=== PATIENT | female | born 1950 | race Caucasian/White ===

== ENCOUNTER 2021-12-04 18:36 | Inpatient (IN) ==
--- NOTE | 2021-12-04 19:17 | Emergency Department Note ---
Impression & Plan Pyelonephritis, Closed compression fracture of L4 vertebra ED Provider Note CHIEF COMPLAINT: Mid and lower back pain HISTORY OF PRESENT ILLNESS: This 71-year-old female patient presents to the emergency department by private vehicle complaining of pain in the low back which began about 3 weeks ago. Patient notes a history of back pain in the past, but has not had surgeries to her back. She states usually if she gets a backache it goes away after she rests for short time. She notes that this pain has been gradually getting worse and is now constant. It radiates around the sides to her abdomen. It does not radiate into her legs. The patient notes the pain as a constant dull ache and rates the pain 10/10. The patient has taken Tylenol and used lidocaine patch with minimal relief of the pain. The patient denies any loss of control of their bowel or bladder functions. There has been no leg numbness or weakness, and no change in sensation. No chest pain or shortness of breath. Patient states that she saw her PCP who recommended that she go to physical therapy, she is scheduled to start this next week. She does note that she was recently treated for urinary tract infection about 3 weeks ago prior to her back pain starting. She has had some nausea off and on but has not had vomiting. She does note that she has had increased urinary frequency but denies burning with urination. She denies any fevers/chills/feeling ill and has had a normal appetite. REVIEW OF SYSTEMS: A complete 10 point review of systems was reviewed with the patient with pertinent positives and negatives as per history of present illness. All else were negative. ALLERGIES: Reviewed in chart with the patient PMH: Hypertension, history of cholecystectomy and tubal ligation SOCIAL HISTORY: Lives at home, she denies tobacco use PHYSICAL EXAM: VITALS: Vitals are noted on the triage note and reviewed by myself. Vital signs stable. GENERAL: Pleasant and cooperative, in no acute distress, non-diaphoretic, mildly dehydrated, but otherwise well-developed and well-nourished. SKIN: The skin was without rashes, erythema, edema, or bruising. Capillary refill less than 2 seconds. NECK: Supple without nuchal rigidity. No cervical spine tenderness. No paraspinous muscle tenderness. HEART: Regular rate and rhythm without murmurs gallops or rubs. LUNGS: Clear to auscultation bilaterally without wheezes, rales or rhonchi. ABDOMEN: Positive bowel sounds x 4. Normal tympanic percussion. Tender to palpation throughout the abdomen, most tender in the suprapubic and bilateral flank areas. No rebound tenderness or guarding. Abdomen is soft and nondistended. No masses or organomegaly. Gracia sign negative. Positive CVA tenderness to percussion bilaterally. MUSCULOSKELETAL: No muscle atrophy, erythema, or edema noted of the back. There is diffuse tenderness to palpation throughout the mid and lower back, with some tenderness over the lumbar spinous processes. There is no midline tenderness over the thoracic spine. No obvious muscle spasms noted. The patient is slow to move around with maximum tenderness with sitting up from lying down. Negative straight leg raise test bilaterally NEURO: Patient was alert and oriented to person place and time. Normal sensation to light and sharp touch. Deep tendon reflexes 2+ in the lower extremities. Dorsalis pedis pulse 2+ bilaterally. Strength 5/5 and equal in the bilateral lower extremities. ED COURSE AND MEDICAL DECISION MAKING: CC: Patient presenting with complaint of back pain DIFFERENTIAL DIAGNOSIS: Includes, but not limited to musculoskeletal, disc herniation, fracture, metastatic disease, cord compression, discitis, sciatica, cauda equina, infection, UTI/pyelonephritis, aortic disease, renal colic, gastrointestinal, among others. INTERPRETATION OF LABS: No leukocytosis, anemia, normal platelets, no significant electrolyte abnormalities, elevated BUN with a normal creatinine, normal liver enzymes and lipase. Coagulation factors within normal limits. UA shows 10-30 WBCs with epithelials and no bacteria, urine cultures pending. COVID-19 test negative. MEDICATION RECONCILIATION: I attest that I have personally reviewed the patient's current medication list. INITIAL VITAL SIGNS REVIEW: I reviewed the patient's initial vital signs and interpret them as follows: T: Afebrile; BP: Normotensive; HR: Within normal limits; RR: Within normal limits; Pulse Ox: Within normal limits on room air. MDM SUMMARY: Patient was evaluated at bedside, history and physical exam performed. Patient is alert and oriented, in no acute distress, resting calmly in stretcher. She is afebrile and nontoxic-appearing, but does appear to be mildly dehydrated clinically. The patient has diffuse tenderness to palpation throughout the mid and lower back with bilateral CVA tenderness to percussion, and bilateral flank and abdominal pain with suprapubic tenderness on exam as well. No neurovascular abnormalities on exam, no red flags on exam or history concerning for spinal cord involvement or cauda equina syndrome. Orders were placed for labs, UA, IV fluid bolus for hydration, CT abdomen/pelvis with IV contrast as well as CT of the lumbar spine, IV fentanyl for pain. Patient discussed with Dr. Rodriguez, who agrees with my assessment, plan, and disposition. Labs and imaging reviewed, no significant lab abnormalities, no leukocytosis. Moderate anemia which the patient notes that she has at baseline. BUN is elevated with a normal creatinine. UA noting large WBCs but no bacteria, urine cultures pending. CT imaging demonstrates findings suggestive of cystitis with bilateral pyeloneph ritis, which I suspect is the cause of the patient's ongoing back pain, given her recently treated UTI. There was also note of a mild superior endplate compression fracture of L4. Given the bilateral pyelonephritis with failed outpatient treatment for UTI, I did feel that the patient would benefit from inpatient hospitalization. The patient was treated with 2 g IV Rocephin. I spoke on the phone with Dr. Jacques, [facility] hospitalist, who agreed to evaluate the patient for admission. Patient reassessed multiple times throughout ED stay, she has remained hemodynamically stable, neurovascularly intact, and afebrile. She does note that her pain is improved after receiving fentanyl. The patient was updated on all results and plan for admission, all questions were answered to the best of my ability and the patient was agreeable to this plan. A Covid test was ordered and was negative. The patient was stable at the time of admission. The chart was completed utilizing [employer] Speech voice recognition software. Grammatical errors, random word insertions, pronoun errors, and incomplete se ntences are an occasional consequence of this system due to software limitations, ambient noise, and hardware issues. Any formal questions or concerns about the content, text, or information contained within the body of this dictation should be directly addressed to the nurse practitioner for bella estevez. Past Med/Surg History Social History Smoking Status: Never smoker Feels Safe at Home: Yes Allergies Allergies Allergy/AdvReac Type Severity Reaction Status Date / Time bee venom protein (honey bee) Allergy Severe . Verified 12/04/21 23:31 clobetasol Allergy Allergy Verified 12/04/21 23:32 test said was allergic Home Meds Home Medications Medication Instructions Recorded Confirmed acetaminophen 500 mg tablet 1,000 mg PO Q6H PRN 12/04/21 12/04/21 (Tylenol Extra Strength) doxycycline hyclate 50 mg capsule 50 mg PO DAILY PRN 12/04/21 12/04/21 lisinopril 10 mg tablet 10 mg PO DAILY 12/04/21 12/04/21 lisinopril 5 mg tablet 5 mg PO DAILY 12/04/21 12/04/21 Results & Data (ED) Vital Signs Vital Signs - 24 hr 12/04/21 18:52 12/04/21 20:19 12/04/21 20:37 Temperature 36.9 C Temperature Source Temporal Artery Scan Pulse Rate 69 87 Pulse Rate [Apical] 65 Pulse Rhythm Regular Pulse Rhythm [Apical] Regular Pulse Strength [Apical] Normal Respiratory Rate 18 18 18 Respiratory Effort / Characteristics Non-Labored Spontaneous Non-Labored Spontaneous Respiratory Depth Normal Normal Respiratory Pattern Regular Blood Pressure 110/57 L Blood Pressure [Left Arm] 127/63 Blood Pressure Mean 74 Blood Pressure Mean [Left Arm] 84 Blood Pressure Position [Left Arm] Lying Pulse Oximetry 100 98 97 Oxygen Delivery Method Room Air Room Air Room Air Sepsis Recent Fever Within 48 Hours No Sepsis New/Unexplained Change in Mental Status No Sepsis Action Taken by Nursing No Action Required 12/05/21 00:32 Temperature Temperature Source Pulse Rate Pulse Rate [Apical] 76 Pulse Rhythm Pulse Rhythm [Apical] Pulse Strength [Apical] Respiratory Rate 18 Respiratory Effort / Characteristics Non-Labored Spontaneous Respiratory Depth Normal Respiratory Pattern Blood Pressure Blood Pressure [Left Arm] 117/54 L Blood Pressure Mean Blood Pressure Mean [Left Arm] 75 Blood Pressure Position [Left Arm] Pulse Oximetry 96 Oxygen Delivery Method Room Air Sepsis Recent Fever Within 48 Hours Sepsis New/Unexplained Change in Mental Status Sepsis Action Taken by Nursing Laboratory Data Result diagrams: 12/04/21 20:02 12/04/21 20:02 Lab Results 12/04/21 12/04/21 12/04/21 Range/Units 20:02 20:02 20:02 WBC 5.86 (4.8-10.8) K/uL RBC 2.65 L (4.2-5.4) M/uL Hgb 9.1 L (12.0-16.0) g/dL Hct 27.0 L (37-47) % MCV 101.9 H (80-100) fL MCH 34.3 H (25-34) pg MCHC 33.7 (32-36) g/dL RDW Std Deviation 53.3 H (36.4-46.3) fL RDW Coeff of Sophia 14.2 (11.5-14.5) % Plt Count 198 (130-400) K/uL MPV 9.5 (7.4-10.4) fL Immature Gran % (Auto) 0.2 % Neut % (Auto) 58.9 % Lymph % (Auto) 32.9 % [place] % (Auto) 5.6 % Eos % (Auto) 1.9 % Baso % (Auto) 0.5 % Neut # (Auto) 3.45 (1.4-6.5) K/uL Lymph # (Auto) 1.93 (1.2-3.4) K/uL [place] # (Auto) 0.33 (0.11-0.59) K/uL Eos # (Auto) 0.11 (0-0.5) K/uL Baso # (Auto) 0.03 (0-0.2) K/uL Immature Gran # (Auto) 0.01 (0.00-0.02) K/uL Poikilocytosis Present PT 10.3 (9.0-12.0) Seconds INR 1.0 (0.9-1.1) Sodium 137 (136-145) mmol/L Potassium 4.1 (3.5-5.1) mmol/L Chloride 106 (98-107) mmol/L Carbon Dioxide 23 (21-32) mmol/L Anion Gap 8 (3-11) BUN 32 H (6-23) mg/dl Creatinine 1.08 (0.6-1.2) mg/dl Est Cr Clr Drug Dosing 50.1 ml/min Est GFR ( Amer) 59.8 ml/min Est GFR (Non-Af Amer) 51.6 ml/min BUN/Creatinine Ratio 29.6 H (10-20) Glucose 120 H (70-99(Fasting)) mg/dl Calcium 9.6 (8.5-10.1) mg/dl Total Bilirubin 0.2 (0.2-1.0) mg/dl AST 18 (13-39) U/L ALT 16 (7-52) U/L Alkaline Phosphatase 99 (34-104) U/L Total Protein 6.2 (6.0-8.3) gm/dl Albumin 4.1 (3.4-5.0) gm/dl Globulin 2.1 L (2.5-4.0) gm/dl Albumin/Globulin Ratio 2.0 (0.9-2) Lipase 31 (11-82) U/L Urine Color Urine Appearance (Clear) Urine pH (4.5-7.5) Ur Specific [place] (1.000-1.030) Urine Protein (Negative) Urine Glucose (UA) (Negative) Urine Ketones (Negative) Urine Blood (Negative) Urine Nitrite (Negative) Urine Bilirubin (Negative) Urine Urobilinogen (Negative) Ur Leukocyte Esterase (Negative) Urine WBC (Auto) (0-5) /hpf Urine RBC (Auto) (0-4) /hpf U Hyaline Cast (Auto) (0-5) /lpf U Epithel Cells (Auto) (0-5) /lpf Urine Bacteria (Auto) (Negative) SARS-CoV-2, RNA, NAAT (NEGATIVE) 12/04/21 12/04/21 Range/Units 21:10 23:15 WBC (4.8-10.8) K/uL RBC (4.2-5.4) M/uL Hgb (12.0-16.0) g/dL Hct (37-47) % MCV (80-100) fL MCH (25-34) pg MCHC (32-36) g/dL RDW Std Deviation (36.4-46.3) fL RDW Coeff of Sophia (11.5-14.5) % Plt Count (130-400) K/uL MPV (7.4-10.4) fL Immature Gran % (Auto) % Neut % (Auto) % Lymph % (Auto) % [place] % (Auto) % Eos % (Auto) % Baso % (Auto) % Neut # (Auto) (1.4-6.5) K/uL Lymph # (Auto) (1.2-3.4) K/uL [place] # (Auto) (0.11-0.59) K/uL Eos # (Auto) (0-0.5) K/uL Baso # (Auto) (0-0.2) K/uL Immature Gran # (Auto) (0.00-0.02) K/uL Poikilocytosis PT (9.0-12.0) Seconds INR (0.9-1.1) Sodium (136-145) mmol/L Potassium (3.5-5.1) mmol/L Chloride (98-107) mmol/L Carbon Dioxide (21-32) mmol/L Anion Gap (3-11) BUN (6-23) mg/dl Creatinine (0.6-1.2) mg/dl Est Cr Clr Drug Dosing ml/min Est GFR ( Amer) ml/min Est GFR (Non-Af Amer) ml/min BUN/Creatinine Ratio (10-20) Glucose (70-99(Fasting)) mg/dl Calcium (8.5-10.1) mg/dl Total Bilirubin (0.2-1.0) mg/dl AST (13-39) U/L ALT (7-52) U/L Alkaline Phosphatase (34-104) U/L Total Protein (6.0-8.3) gm/dl Albumin (3.4-5.0) gm/dl Globulin (2.5-4.0) gm/dl Albumin/Globulin Ratio (0.9-2) Lipase (11-82) U/L Urine Color Yellow Urine Appearance Clear (Clear) Urine pH 5.0 (4.5-7.5) Ur Specific [place] 1.022 (1.000-1.030) Urine Protein 1+ H (Negative) Urine Glucose (UA) Negative (Negative) Urine Ketones Negative (Negative) Urine Blood Negative (Negative) Urine Nitrite Negative (Negative) Urine Bilirubin Negative (Negative) Urine Urobilinogen Negative (Negative) Ur Leukocyte Esterase Trace H (Negative) Urine WBC (Auto) 10-30 H (0-5) /hpf Urine RBC (Auto) 0-4 (0-4) /hpf U Hyaline Cast (Auto) 0 (0-5) /lpf U Epithel Cells (Auto) >30 H (0-5) /lpf Urine Bacteria (Auto) Negative (Negative) SARS-CoV-2, RNA, NAAT NEGATIVE (NEGATIVE) Administered Medications Discontinued Medications Fentanyl Citrate (Fentanyl Citrate 100 Mcg/2 Ml Vial) 50 mcg IV NOW STA Stop: 12/04/21 19:44 Last Admin: 12/04/21 20:08 Dose: 50 mcg Documented by: [id number] Sodium Chloride (Nss) 500 mls @ 999 mls/hr IV .Q31M STA Stop: 12/04/21 20:13 Last Infusion: 12/04/21 20:37 Dose: 0 mls/hr Documented by: [id number] Admin: 12/04/21 20:08 Dose: 999 mls/hr Documented by: [id number] Ceftriaxone Sodium (Rocephin) 2,000 mg in 70 mls @ 140 mls/hr IV NOW STA Stop: 12/04/21 23:28 Last Infusion: 12/05/21 00:02 Dose: 0 mls/hr Documented by: [id number] Admin: 12/04/21 23:32 Dose: 140 mls/hr Documented by: [id number] Ioversol (Optiray 320 100ml) 95 ml IV ONCE ONE Stop: 12/04/21 21:07 Last Admin: 12/04/21 21:12 Dose: 95 ml Documented by: [id number] Imaging Data Radiologist's Impression: Abdomen/Pelvis CT 12/04/21 19:43 CT SCAN OF THE ABDOMEN AND PELVIS WITH IV CONTRAST; CT SCAN OF THE LUMBAR SPINE WITH IV CONTRAST CLINICAL HISTORY: Generalized abdominal pain. Low back pain. Radiculopathy. COMPARISON STUDY: Abdominal ultrasound dated 05/03/2009. TECHNIQUE: Following the IV administration of 95 cc of Optiray 320, CT scan of the abdomen and pelvis is performed from the lung bases to the proximal femora. Additionally, CT scan of the lumbar spine is performed from the lower thoracic spine to the sacrum. Images for both examinations are reviewed in the axial, sagittal, and coronal planes. IV contrast was administered without complication. A dose lowering technique was utilized adhering to the principles of ALARA. CT DOSE: 762.62 mGy.cm FINDINGS: Lung bases: The heart is normal in size and without pericardial effusion. There are coronary artery calcifications. Patchy nodular airspace consolidation is seen at both lung bases. No pleural effusion is identified. Bilateral breast implants are partially imaged. Liver: The contrast-enhanced liver is normal in size, contour, and attenuation. There is mild intrahepatic biliary ductal dilatation. The hepatic veins and portal veins are patent. Gallbladder: Surgically absent noting clips in the gallbladder fossa. Spleen: Normal in size and attenuation. Pancreas: Unremarkable. Adrenal glands: Unremarkable. Kidneys: The contrast enhanced kidneys are normal in size and without hydronephrosis. Both kidneys demonstrate heterogeneous enhancement. 2 left renal cysts measure up to 3.4 cm. Abdominal vasculature: The abdominal aorta is normal in course and caliber. Bowel: There is mild to moderate colonic fecal retention. No bowel obstruction is identified. The appendix is diminutive and grossly unremarkable. Peritoneum: There is no intraperitoneal free air or abdominal ascites. There is a small fat-containing umbilical hernia. Lymphadenopathy: None. Pelvic viscera: The bladder wall appears mildly thickened and there is pericystic infiltration. The uterus and adnexa are normal as visualized. Skeletal structures: The skeletal structures are osteopenic. See below for dedic ated discussion of the lumbar spine. The bony pelvis and proximal femora appear intact. Sclerotic change is noted in the pubic symphysis. No lytic or blastic lesions are seen. LUMBAR SPINE: There is a mild acute superior endplate compression fracture of L4. There are minimally retropulsed fragments. Vertebral body height is otherwise maintained throughout the lumbar spine. Alignment is preserved. Small anterior and lateral marginal osteophytes are seen throughout. The transverse and spinous processes are intact. Facet arthropathy is noted in the lower lumbar region. There is no evidence of spondylolysis. There is moderate disc space narrowing at L4-L5. Mild disc space narrowing is seen at the remaining lumbar levels. There is no CT evidence of large disc herniation or high-grade central canal stenosis. The paraspinous soft tissues are within normal limits. IMPRESSION: 1. Findings suggest cystitis with ascending urinary tract infection/bilateral pyelonephritis. Correlate with clinical findings and urinalysis. 2. Patchy nodular airspace consolidation is seen at both lung bases. Correlate clinically for evidence of pneumonia. Given the nodular configuration, a follow- up chest CT is recommended in 3 months time to document resolution. 3. There is a mild acute superior endplate compression fracture of L4. 4. Additional findings as above. ACT 112: Positive. There are findings on this exam that require communication between the performing entity and the patient following Patient Test Result Information Act ([place] Act 112) guidelines. Electronically signed by: Brenton Diaz M.D. 12/04/2021 10:[address] 12/04/21 19:43 CT SCAN OF THE ABDOMEN AND PELVIS WITH IV CONTRAST; CT SCAN OF THE LUMBAR SPINE WITH IV CONTRAST CLINICAL HISTORY: Generalized abdominal pain. Low back pain. Radiculopathy. COMPARISON STUDY: Abdominal ultrasound dated 05/03/2009. TECHNIQUE: Following the IV administration of 95 cc of Optiray 320, CT scan of the abdomen and pelvis is performed from the lung bases to the proximal femora. Additionally, CT scan of the lumbar spine is performed from the lower thoracic spine to the sacrum. Images for both examinations are reviewed in the axial, sagittal, and coronal planes. IV contrast was administered without complication. A dose lowering technique was utilized adhering to the principles of ALARA. CT DOSE: 762.62 mGy.cm FINDINGS: Lung bases: The heart is normal in size and without pericardial effusion. There are coronary artery calcifications. Patchy nodular airspace consolidation is seen at both lung bases. No pleural effusion is identified. Bilateral breast implants are partially imaged. Liver: The contrast-enhanced liver is normal in size, contour, and attenuation. There is mild intrahepatic biliary ductal dilatation. The hepatic veins and portal veins are patent. Gallbladder: Surgically absent noting clips in the gallbladder fossa. Spleen: Normal in size and attenuation. Pancreas: Unremarkable. Adrenal glands: Unremarkable. Kidneys: The contrast enhanced kidneys are normal in size and without hydronephrosis. Both kidneys demonstrate heterogeneous enhancement. 2 left renal cysts measure up to 3.4 cm. Abdominal vasculature: The abdominal aorta is normal in course and caliber. Bowel: There is mild to moderate colonic fecal retention. No bowel obstruction is identified. The appendix is diminutive and grossly unremarkable. Peritoneum: There is no intraperitoneal free air or abdominal ascites. There is a small fat-containing umbilical hernia. Lymphadenopathy: None. Pelvic viscera: The bladder wall appears mildly thickened and there is p ericystic infiltration. The uterus and adnexa are normal as visualized. Skeletal structures: The skeletal structures are osteopenic. See below for dedicated discussion of the lumbar spine. The bony pelvis and proximal femora appear intact. Sclerotic change is noted in the pubic symphysis. No lytic or blastic lesions are seen. LUMBAR SPINE: There is a mild acute superior endplate compression fracture of L4. There are minimally retropulsed fragments. Vertebral body height is otherwise maintained throughout the lumbar spine. Alignment is preserved. Small anterior and lateral marginal osteophytes are seen throughout. The transverse and spinous processes are intact. Facet arthropathy is noted in the lower lumbar region. There is no evidence of spondylolysis. There is moderate disc space narrowing at L4-L5. Mild disc space narrowing is seen at the remaining lumbar levels. There is no CT evidence of large disc herniation or high-grade central canal stenosis. The paraspinous soft tissues are within normal limits. IMPRESSION: 1. Findings suggest cystitis with ascending urinary tract infection/bilateral pyelonephritis. Correlate with clinical findings and urinalysis. 2. Patchy nodular airspace consolidation is seen at both lung bases. Correlate c linically for evidence of pneumonia. Given the nodular configuration, a follow- up chest CT is recommended in 3 months time to document resolution. 3. There is a mild acute superior endplate compression fracture of L4. 4. Additional findings as above. ACT 112: Positive. There are findings on this exam that require communication between the performing entity and the patient following Patient Test Result Information Act ([place] Act 112) guidelines. Electronically signed by: Brenton Diaz M.D. 12/04/2021 10:37 PM Discharge Plan Visit Data Chief Complaint: Back Injury/Pain Stated Complaint: LOWER BACK PAIN ED Provider: Tony Rodriguez ED Midlevel Provider: Brooklyn Tolentino Discharge Problem: Pyelonephritis, Closed compression fracture of L4 vertebra Patient Disposition: Admitted As Inpatient Forms Stand Alone Forms: [employer] [facility] [employer] Prescriptions Prescriptions: No Action doxycycline hyclate 50 mg capsule 50 mg PO DAILY PRN (Reason: ROSECEA) RF: 0 acetaminophen [Tylenol Extra Strength] 500 mg Tablet 1,000 mg PO Q6H PRN (Reason: Pain) RF: 0 lisinopril 10 mg tablet 10 mg PO DAILY RF: 0 lisinopril 5 mg tablet 5 mg PO DAILY RF: 0 Referrals Referrals: Sherwin Obrien MD [Primary Care Provider] - Discharge Problem: Closed compression fracture of L4 vertebra Qualifiers: Encounter type: initial encounter Qualified Code(s): S32.040A - Wedge compression fracture of fourth lumbar vertebra, initial encounter for closed fracture
[2021-12-04] MEDS ORDERED: SODIUM CHLORIDE 0.9% 500 ML IV STA (19:43)
[2021-12-04] MEDS ORDERED: fentaNYL citrate 100 MCG/2 ML VIAL IV STA (19:43)
[2021-12-04 20:13] LABS: Hemoglobin 9.1 g/dL (12.0-16.0); Mean Corpuscular Hemoglobin 34.3 pg (25-34); Mean Corpuscular Hgb Conc 33.7 g/dL (32-36); Mean Corpuscular Volume 101.9 fL (80-100); Mean Platelet Volume 9.5 fL (7.4-10.4); Platelet Count 198 K/uL (130-400); RDW Coefficient of Variation 14.2 % (11.5-14.5); RDW Standard Deviation 53.3 fL (36.4-46.3); Red Blood Count 2.65 M/uL (4.2-5.4); White Blood Count 5.86 K/uL (4.8-10.8)
[2021-12-04 20:28] LABS: Prothrombin Time 10.3 Seconds (9.0-12.0)
[2021-12-04 20:42] LABS: Albumin Level 4.1 gm/dl (3.4-5.0); BUN Creatinine Ratio 29.6 (10-20); Bilirubin,Total 0.2 mg/dl (0.2-1.0); Calcium 9.6 mg/dl (8.5-10.1); Creatinine Clr Calc Pharmacy 50.1 ml/min; Est GFR (African American) 59.8 ml/min; Est GFR (Non-African American) 51.6 ml/min; Globulin 2.1 gm/dl (2.5-4.0); Potassium 4.1 mmol/L (3.5-5.1); Total Protein 6.2 gm/dl (6.0-8.3)
[2021-12-04 20:52] LABS: Basophils # (auto) 0.03 K/uL (0-0.2); Basophils % (auto) 0.5 %; Eosinophils # (auto) 0.11 K/uL (0-0.5); Eosinophils % (auto) 1.9 %; Immature Granulocytes # (auto) 0.01 K/uL (0.00-0.02); Immature Granulocytes % (auto) 0.2 %; Lymphocytes # (auto) 1.93 K/uL (1.2-3.4); Lymphocytes % (auto) 32.9 %; Monocytes # (auto) 0.33 K/uL (0.11-0.59); Monocytes % (auto) 5.6 %; Neutrophils # (auto) 3.45 K/uL (1.4-6.5); Neutrophils % (auto) 58.9 %; Poikilocytosis Present
[2021-12-04] MEDS ORDERED: OPTIRAY 320 100ml IV ONE (21:06)
[2021-12-04 21:49] LABS: Appearance Urine Clear (Clear); Bacteria Urine Automated Negative (Negative); Bilirubin Urine Negative (Negative); Blood Urine Negative (Negative); Color Urine Yellow; Epithelial Cell Urine Auto >30 /lpf (0-5); Glucose Urine UA Negative (Negative); Ketones Urine Negative (Negative); Leukocyte Esterase Urine Trace (Negative); Nitrite Urine Negative (Negative); Protein Urine 1+ (Negative); RBC Urine Automated 0-4 /hpf (0-4); Specific Gravity Urine 1.022 (1.000-1.030); Urobilinogen Urine Negative (Negative)
[2021-12-04 22:14] LABS: Cast Urine Automated 0 /lpf (0-5)
--- NOTE | 2021-12-04 22:40 | CT Scan Report ---
CT SCAN OF THE ABDOMEN AND PELVIS WITH IV CONTRAST; CT SCAN OF THE LUMBAR SPINE WITH IV CONTRAST CLINICAL HISTORY: Generalized abdominal pain. Low back pain. Radiculopathy. COMPARISON STUDY: Abdominal ultrasound dated 05/03/2009. TECHNIQUE: Following the IV administration of 95 cc of Optiray 320, CT scan of the abdomen and pelvi s is performed from the lung bases to the proximal femora. Additionally, CT scan of the lumbar spine is performed from the lower thoracic spine to the sacrum. Images for both examinations are reviewed i n the axial, sagittal, and coronal planes. IV contrast was administered without complication. A dose lowering technique was utilized adhering to the principles of ALARA. CT DOSE: 762.62 mGy.cm FINDINGS: Lung bases: The heart is normal in size and without pericardial effusion. There are coronary artery c alcifications. Patchy nodular airspace consolidation is seen at both lung bases. No pleural effusion is identified. Bilateral breast implants are partially imaged. Liver: The contrast-enhanced liver is normal in size, contour, and attenuation. There is mild intrahe patic biliary ductal dilatation. The hepatic veins and portal veins are patent. Gallbladder: Surgically absent noting clips in the gallbladder fossa. Spleen: Normal in size and attenuation. Pancreas: Unremarkable. Adrenal glands: Unremarkable. Kidneys: The contrast enhanced kidneys are normal in size and without hydronephrosis. Both kidneys de monstrate heterogeneous enhancement. 2 left renal cysts measure up to 3.4 cm. Abdominal vasculature: The abdominal aorta is normal in course and caliber. Bowel: There is mild to moderate colonic fecal retention. No bowel obstruction is identified. The mignon endix is diminutive and grossly unremarkable. Peritoneum: There is no intraperitoneal free air or abdominal ascites. There is a small fat-containin g umbilical hernia. Lymphadenopathy: None. Pelvic viscera: The bladder wall appears mildly thickened and there is pericystic infiltration. The u terus and adnexa are normal as visualized. Skeletal structures: The skeletal structures are osteopenic. See below for dedicated discussion of th e lumbar spine. The bony pelvis and proximal femora appear intact. Sclerotic change is noted in the p ubic symphysis. No lytic or blastic lesions are seen. LUMBAR SPINE: There is a mild acute superior endplate compression fracture of L4. There are minimally retropulsed fragments. Vertebral body height is otherwise maintained throughout the lumbar spine. Al ignment is preserved. Small anterior and lateral marginal osteophytes are seen throughout. The transv erse and spinous processes are intact. Facet arthropathy is noted in the lower lumbar region. There i s no evidence of spondylolysis. There is moderate disc space narrowing at L4-L5. Mild disc space narr owing is seen at the remaining lumbar levels. There is no CT evidence of large disc herniation or hig h-grade central canal stenosis. The paraspinous soft tissues are within normal limits. IMPRESSION: 1. Findings suggest cystitis with ascending urinary tract infection/bilateral pyelonephritis. Correla te with clinical findings and urinalysis. 2. Patchy nodular airspace consolidation is seen at both lung bases. Correlate clinically for evidenc e of pneumonia. Given the nodular configuration, a follow-up chest CT is recommended in 3 months time to document resolution. 3. There is a mild acute superior endplate compression fracture of L4. 4. Additional findings as above. ACT 112: Positive. There are findings on this exam that require communication between the performing entity and the patient following Patient Test Result Information Act ([place] Act 112) guidelines. Electronically signed by: Brenton Diaz M.D. 12/04/2021 10:37 PM
[2021-12-04] MEDS ORDERED: cefTRIAXone SODIUM 2,000 MG/70 ML BAG IV STA (22:59)
--- NOTE | 2021-12-04 23:36 | Emergency Department Note ---
ED Visit Note This Patient was discussed with the nurse practitioner, LATONYA Nuñez The pertinent historical and physical exam findings were confirmed. I agree with the studies ordered and with the interpretations of these studies. I agree with the disposition and care plan. .
[2021-12-05] MEDS ORDERED: ACETAMINOPHEN 325 MG TAB PO PRN (01:51)
[2021-12-05] MEDS ORDERED: ONDANSETRON INJ 2 MG/ML 2 ML VIAL IV PRN (01:51)
[2021-12-05] MEDS ORDERED: POLYETHYLENE (MIRALAX) 17 GM PACK PO PRN (01:51)
[2021-12-05] MEDS ORDERED: ACETAMINOPHEN 500 MG TAB PO PRN (01:51)
[2021-12-05] MEDS ORDERED: MoRPHine SULFATE 2 MG/ML CARP IV PRN (01:51)
[2021-12-05] MEDS: SODIUM CHLORIDE 0.9% 1000ML 1,000 ML IV SCH ×3 (02:46→13:49)
[2021-12-05] MEDS: ceFAZolin 1000MG 1,000 MG/7.5 ML SYR IV SCH ×3 (03:03→17:34)
[2021-12-05 05:34] LABS: Basophils # (auto) 0.03 K/uL (0-0.2); Basophils % (auto) 0.5 %; Eosinophils # (auto) 0.09 K/uL (0-0.5); Eosinophils % (auto) 1.4 %; Hematocrit (blood only) 27.5 % (37-47); Hemoglobin 9.2 g/dL (12.0-16.0); Immature Granulocytes # (auto) 0.02 K/uL (0.00-0.02); Immature Granulocytes % (auto) 0.3 %; Lymphocytes # (auto) 1.76 K/uL (1.2-3.4); Lymphocytes % (auto) 28.1 %; Mean Corpuscular Hemoglobin 34.3 pg (25-34); Mean Corpuscular Hgb Conc 33.5 g/dL (32-36); Mean Corpuscular Volume 102.6 fL (80-100); Mean Platelet Volume 9.7 fL (7.4-10.4); Monocytes # (auto) 0.43 K/uL (0.11-0.59); Monocytes % (auto) 6.9 %; Neutrophils # (auto) 3.94 K/uL (1.4-6.5); Neutrophils % (auto) 62.8 %; Platelet Count 200 K/uL (130-400); RDW Coefficient of Variation 14.4 % (11.5-14.5); Red Blood Count 2.68 M/uL (4.2-5.4); White Blood Count 6.27 K/uL (4.8-10.8)
[2021-12-05 05:51] LABS: BUN Creatinine Ratio 28.6 (10-20); Calcium 9.3 mg/dl (8.5-10.1); Creatinine Clr Calc Pharmacy 54.6 ml/min; Est GFR (African American) 67.3 ml/min; Magnesium 1.9 mg/dl (1.7-2.4); Potassium 4.2 mmol/L (3.5-5.1)
--- NOTE | 2021-12-05 06:17 | History and Physical Report ---
DATE OF SERVICE: 12/05/2021. CHIEF COMPLAINT: Back pain. HISTORY OF PRESENT ILLNESS: A 71-year-old female with past medical history significant for type 2 diabetes, hypertension, obesity, GERD, irritable bowel syndrome, lichen sclerosis, rosacea, restless legs syndrome, osteoarthritis, recent history of left breast cancer stage 0 status post bilateral mastectomy. Comes in with back pain. The patient's back pain is going on for the last 3 weeks. In October, she was treated for UTI with Bactrim for 1 week. But back pain is getting worse and she is not able to even ambulate. That is the reason she came here. Here, imaging studies, CAT scan of lumbar spine and CT scan of the abd/pelvis was done, which was showing pyelonephritis and also mild acute superior endplate compression fracture of L4. The patient was started on antibiotics. Currently, resting comfortably, hemodynamically stable. Denies any headache or dizziness. Currently, no blurred visions, no sore throat, no cough. Currently, no nausea, no chest pain, no abdominal pain. Normal bowel and bladder movements. Hemodynamically stable. ALLERGIES: BEE STING AND CLOBETASOL. PAST MEDICAL HISTORY: As mentioned above. PAST SURGICAL HISTORY: Breast reconstruction surgery, left deep axillary lymph node biopsy, colonoscopy, laparoscopic cholecystectomy, simple mastectomy. MEDICATIONS: The patient is on doxycycline 100 mg p.o. daily p.r.n., lisinopril 15 mg p.o. daily, Tylenol Extra Strength 1000 mg p.o. q. 6 hours p.r.n. FAMILY HISTORY: Significant for maternal cousin has breast cancer, daughter has breast cancer, brother has cancer, maternal grandfather had colon cancer, brother has stroke, another brother has schizophrenia, mother has heart disorder. SOCIAL HISTORY: No smoking. Alcohol, rarely. No drug use. REVIEW OF SYSTEMS: As per HPI. Rest of the review of systems is negative. PHYSICAL EXAMINATION: GENERAL: The patient is obese, not in acute distress. VITAL SIGNS: Temperature 36.5, pulse 83, respiratory rate 16, blood pressure 123/65, oxygen 98% on room air. HEENT: Pupils equal, round, and reactive to light. Oral mucosa moist. NECK: No JVD, no neck masses. CARDIOVASCULAR: S1 and S2 heard. Regular rate and rhythm. No murmur, no gallop. RESPIRATORY SYSTEM: Normal AP diameter. No accessory muscle use. No wheezing, no crackles. ABDOMEN: Soft, bowel sounds present, nontender, no distention. CENTRAL NERVOUS SYSTEM: Cranial nerves II through XII grossly intact, nonfocal. MUSCULOSKELETAL: Lumbar spinal tenderness present. Bilateral straight leg test positive. EXTREMITIES: No edema, no erythema. LABORATORY DATA: WBC 5.8, hemoglobin 9.1, hematocrit 27, platelets 198, PT 10.3, INR 1. Sodium 137, potassium 4.1, chloride 106, bicarbonate 23, BUN 32, creatinine 1.08, serum glucose 120, calcium 9.6, total bilirubin 0.2, AST 18, ALT 16, alkaline phosphatase 99, lipase 31. Urinalysis, trace leukocyte esterase. SARS-CoV-2 RNA, rapid test negative. IMAGING DATA: CT of abdomen and pelvis shows findings suggestive of cystitis with ascending urinary tract infection, bilateral pyelonephritis, patchy nodular airspace consolidations seen in both lung bases, mild acute superior endplate compression fracture of L4. Lumbar spine CT, mild acute compression fracture of L4. Chest CT results are pending. ASSESSMENT AND PLAN: This is a 71-year-old female who presents with severe back pain and ambulatory dysfunction and found to have pyelonephritis and also L4 compression fracture. 1. Bilateral pyelonephritis: Started on iv ancef. Urine grew MSSA in October of this year. Will follow the cultures. Follow the response. 2. Ambulatory dysfunction and also L4 compression fracture: Will consult orthopedics. Pain control. PT/OT. 3. History of hypertension: Continue lisinopril. 4. History of recent diagnosis of breast cancer, stage 0, left side: Status post bilateral mastectomy. Follow up. 5. Anemia: Seems to be chronic. Follow stool for Hemoccult. Needs follow up with family doctor. 6. Deep venous thrombosis prophylaxis: Lovenox. DISPOSITION: Closely monitor in the medical floor. PT, OT prior to discharge. Social service to help with discharge planning. Job ID: [id number] [facility]
[2021-12-05 07:48] LABS: Estimated Average Glucose 126 mg/dl
--- NOTE | 2021-12-05 08:51 | Consultation ---
Date of Consultation December 05, 2021 Assessment & Plan (1) Closed compression fracture of L4 vertebra: Lumbar CT shows an acute L4 superior endplate compression fracture. Pain seems to be quite controlled. Suspect most of her pain is coming from her pyelonephritis. Nonetheless I would like to pursue more detailed imaging in light of her breast cancer diagnosis since there was no specific fall/trauma. I would like an MRI of the lumbar spine without contrast. In light of her controlled pain, I would recommend conservative treatment. I will order an LSO brace. This is to be worn with ambulation and activity. No lifting greater than 5 pounds. Would not recommend aggressive kyphoplasty/surgical intervention in light of her acute pyelonephritis and relatively decent pain control. Please note Dr. Barakat is out of town. He will review imaging once he returns. History of Present Illness Reason for Consultation: L4 compression fracture Attending Physician: Rafael Bemran MD History of Present Illness Is a pleasant 71-year-old female that we are asked to see in consultation regarding L4 compression fracture. She states she has had lower back pain for about 3-1/2 weeks. No specific accident, trauma, fall. She ambulates independently at home. She is taken Tylenol for pain control at home. Denies any fevers or chills at home. 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 Sitting is palliative for her. No radicular complaints. She is also been admitted with a diagnosis of pyelonephritis. Pain is located is a band across the lumbar spine. She is anxious to to return home and back to work. Allergies Allergy/AdvReac Type Severity Reaction Status Date / Time bee venom protein (honey bee) Allergy Severe . Verified 12/04/21 23:31 clobetasol Allergy Allergy Verified 12/04/21 23:32 test said was allergic Home Medications Medication Instructions Recorded Confirmed Type acetaminophen 500 mg tablet 1,000 mg PO Q6H PRN 12/04/21 12/04/21 History (Tylenol Extra Strength) doxycycline hyclate 50 mg capsule 50 mg PO DAILY PRN 12/04/21 12/04/21 History lisinopril 10 mg tablet 10 mg PO DAILY 12/04/21 12/04/21 History lisinopril 5 mg tablet 5 mg PO DAILY 12/04/21 12/04/21 History Patient History Social History Smoking Status: Never smoker Hx Alcohol Use: Yes Alcohol type: wine Hx Substance Use: No Preferred Language: Telugu Communication Ability: Effective Household Manager Required: No Beliefs That Will Affect Care: None Current Living Situation: Alone Other Information That Helps Us Care for You: No Feels Safe at Home: Yes Safety Concerns: Feels Safe At This Time Assistive Devices: Glasses and Hearing Aid - Bilateral Review of Systems Review of Systems: All systems reviewed & are unremarkable except as noted in HPI & below Physical Exam Physical Exam: She is lying in bed but is able to move to a sitting position with relative ease No acute distress No ecchymosis or lacerations along the thoracolumbar spine He is tender over both sacroiliac notches but nontender to palpation to the midline lumbar spine Modest flank tenderness bilaterally Strength is intact bilateral lower extremities calves are soft nontender bilaterally as well Results & Data ([facility]) Vital Signs (Past 12 Hours) Vital Signs Temp Pulse Pulse Pulse Resp BP BP 12/05/21 07:57 36.5 C 63 16 104/64 12/05/21 01:52 36.5 C 83 16 123/65 12/05/21 01:26 75 18 111/55 L 12/05/21 00:32 76 18 117/54 L Pulse Ox 12/05/21 07:57 99 12/05/21 01:52 98 12/05/21 01:26 97 12/05/21 00:32 96 Diagnostic Findings [facility] [place] [phone] CT Scan Report Patient:THERESE PADRON Admit Date:12/04/21 MR#:[id number] Address1:[address] [place] [address] Acct ID:[id number] Address2:[address] Date:1950 [facility] Zip:[place] [address] Age:71 Location:ED Sex:F Room/Bed: Att Phy: Diagnosis:LOWER BACK PAIN Maura Phy:Sherwin Obrien MD Service Date:12/04/21 Fam Phy: Interpreting Phy:Brenton Diaz MDAdmit Phy: Ordering Phy:Brooklyn Tolentino CRNP cc: ~ CT SCAN OF THE ABDOMEN AND PELVIS WITH IV CONTRAST; CT SCAN OF THE LUMBAR SPINE WITH IV CONTRAST CLINICAL HISTORY: Generalized abdominal pain. Low back pain. Radiculopathy. COMPARISON STUDY: Abdominal ultrasound dated 05/03/2009. TECHNIQUE: Following the IV administration of 95 cc of Optiray 320, CT scan of the abdomen and pelvis is performed from the lung bases to the proximal femora. Additionally, CT scan of the lumbar spine is performed from the lower thoracic spine to the sacrum. Images for both examinations are reviewed in the axial, sagittal, and coronal planes. IV contrast was administered without complication. A dose lowering technique was utilized adhering to the principles of ALARA. CT DOSE: 762.62 mGy.cm FINDINGS: Lung bases: The heart is normal in size and without pericardial effusion. There are coronary artery calcifications. Patchy nodular airspace consolidation is seen at both lung bases. No pleural effusion is identified. Bilateral breast implants are partially imaged. Liver: The contrast-enhanced liver is normal in size, contour, and attenuation. There is mild intrahepatic biliary ductal dilatation. The hepatic veins and portal veins are patent. Gallbladder: Surgically absent noting clips in the gallbladder fossa. Spleen: Normal in size and attenuation. Pancreas: Unremarkable. Adrenal glands: Unremarkable. Kidneys: The contrast enhanced kidneys are normal in size and without hydronephrosis. Both kidneys demonstrate heterogeneous enhancement. 2 left renal cysts measure up to 3.4 cm. Abdominal vasculature: The abdominal aorta is normal in course and caliber. Bowel: There is mild to moderate colonic fecal retention. No bowel obstruction is identified. The appendix is diminutive and grossly unremarkable. Peritoneum: There is no intraperitoneal free air or abdominal ascites. There is a small fat-containing umbilical hernia. Lymphadenopathy: None. Pelvic viscera: The bladder wall appears mildly thickened and there is pericystic infiltration. The uterus and adnexa are normal as visualized. Skeletal structures: The skeletal structures are osteopenic. See below for dedicated discussion of the lumbar spine. The bony pelvis and proximal femora appear intact. Sclerotic change is noted in the pubic symphysis. No lytic or blastic lesions are seen. LUMBAR SPINE: There is a mild acute superior endplate compression fracture of L4. There are minimally retropulsed fragments. Vertebral body height is otherwis e maintained throughout the lumbar spine. Alignment is preserved. Small anterior and lateral marginal osteophytes are seen throughout. The transverse and spinous processes are intact. Facet arthropathy is noted in the lower lumbar region. There is no evidence of spondylolysis. There is moderate disc space narrowing at L4-L5. Mild disc space narrowing is seen at the remaining lumbar levels. There i s no CT evidence of large disc herniation or high-grade central canal stenosis. The paraspinous soft tissues are within normal limits. IMPRESSION: 1. Findings suggest cystitis with ascending urinary tract infection/bilateral pyelonephritis. Correlate with clinical findings and urinalysis. 2. Patchy nodular airspace consolidation is seen at both lung bases. Correlate clinically for evidence of pneumonia. Given the nodular configuration, a follow- up chest CT is recommended in 3 months time to document resolution. 3. There is a mild acute superior endplate compression fracture of L4. 4. Additional findings as above. ACT 112: Positive. There are findings on this exam that require communication between the performing entity and the patient following Patient Test Result Information Act ([place] Act 112) guidelines. Electronically signed by: Brenton Diaz M.D. 12/04/2021 10:37 PM Dictated:12/04/212226 Transcribed: 12/04/212226 (1) Closed compression fracture of L4 vertebra Encounter type: initial encounter Qualified Code(s): S32.040A - Wedge compression fracture of fourth lumbar vertebra, initial encounter for closed fracture
[2021-12-05] MEDS: ENOXAPARIN INJ 40 MG/0.4 ML SYR SQ SCH ×2 (09:19→20:30)
[2021-12-05] MEDS: lisinopril 10 MG TAB PO SCH (09:20)
[2021-12-05] MEDS: lisinopril 5 MG TAB PO SCH (09:20)
--- NOTE | 2021-12-05 10:52 | CT Scan Report ---
CT OF THE CHEST WITHOUT IV CONTRAST CLINICAL HISTORY: Pulmonary infiltrates. COMPARISON STUDY: Chest radiograph June 10, 2016. CT of the abdomen and pelvis December 04, 2021. CT DOSE: 625.01 mGy.cm TECHNIQUE: Axial images of the chest were obtained without IV contrast. Images were reviewed in the axial, sagittal, and coronal planes. IV contrast was not administered for this examination. Automat ed exposure control was utilized for the study. A dose lowering technique was utilized adhering to t he principles of ALARA. FINDINGS: Size of the heart is normal. There is no pericardial effusion. There are multiple mildly e nlarged mediastinal lymph nodes. Index pretracheal lymph node on axial image 65 of 296 measures 1.6 x 1.3 cm. Mildly enlarged subcarinal lymph node measures 1.1 cm. Central airways are patent. There is no pneumothorax or pleural effusion. There are innumerable irregular nodular opacities throughout the lungs. The largest is a right lower lobe focus on axial image 221 which measures 4.3 x 2 cm. No susp icious lesions are identified within the bony thorax. Postoperative findings within each breast are n oted with suspected tissue expanders in place. A few cysts within the upper pole of the left kidney a re present. IMPRESSION: 1. Innumerable irregular nodular opacities throughout the lungs, the largest of which is a 4.3 x 2 cm focus within the right lower lobe. These are nonspecific and could be infectious or inflammatory. A follow-up chest CT in 3 months is recommended as a neoplastic etiology cannot be completely excluded. Pulmonary consultation might also be considered. 2. Multiple mildly enlarged mediastinal lymph nodes which are also nonspecific and can be assessed on follow-up CT. ACT 112: Negative or not required by law. Electronically signed by: Naveen Freedman M.D. 12/05/2021 10:50 AM
[2021-12-06] MEDS: ceFAZolin 1000MG 1,000 MG/7.5 ML SYR IV SCH ×2 (01:49→10:06)
[2021-12-06 06:36] LABS: Basophils # (auto) 0.02 K/uL (0-0.2); Basophils % (auto) 0.4 %; Eosinophils # (auto) 0.08 K/uL (0-0.5); Eosinophils % (auto) 1.8 %; Hematocrit (blood only) 26.3 % (37-47); Hemoglobin 8.7 g/dL (12.0-16.0); Immature Granulocytes # (auto) 0.01 K/uL (0.00-0.02); Immature Granulocytes % (auto) 0.2 %; Lymphocytes # (auto) 1.63 K/uL (1.2-3.4); Lymphocytes % (auto) 36.1 %; Mean Corpuscular Hgb Conc 33.1 g/dL (32-36); Mean Corpuscular Volume 102.7 fL (80-100); Mean Platelet Volume 9.7 fL (7.4-10.4); Monocytes # (auto) 0.36 K/uL (0.11-0.59); Neutrophils # (auto) 2.42 K/uL (1.4-6.5); Neutrophils % (auto) 53.5 %; Platelet Count 182 K/uL (130-400); RDW Coefficient of Variation 14.3 % (11.5-14.5); RDW Standard Deviation 53.4 fL (36.4-46.3); Red Blood Count 2.56 M/uL (4.2-5.4); White Blood Count 4.52 K/uL (4.8-10.8)
[2021-12-06 07:06] LABS: BUN Creatinine Ratio 22.6 (10-20); Calcium 9.5 mg/dl (8.5-10.1); Creatinine Clr Calc Pharmacy 63.7 ml/min; Est GFR (Non-African American) 69.9 ml/min; Potassium 4.2 mmol/L (3.5-5.1)
[2021-12-06 07:18] LABS: Ferritin 365.7 ng/ml (8-388)
[2021-12-06 07:23] LABS: Folate (Folic Acid) 8.2 ng/ml (>5.38)
[2021-12-06] MEDS: lisinopril 5 MG TAB PO SCH (08:18)
[2021-12-06] MEDS: lisinopril 10 MG TAB PO SCH (08:19)
[2021-12-06] MEDS: ENOXAPARIN INJ 40 MG/0.4 ML SYR SQ SCH ×2 (08:19→20:04)
[2021-12-06] MEDS ORDERED: ALBUTEROL HFA 8 GM INHALER INH PRN (09:42)
--- NOTE | 2021-12-06 10:58 | XRay Report ---
RIGHT SHOULDER 3 VIEWS CLINICAL HISTORY: Chronic right shoulder pain. FINDINGS: 3 views of the right shoulder are obtained. Correlation is made with chest CT dated 12/06/19 22. The skeletal structures are osteopenic. There is no radiographic evidence of fracture or dislocat ion. Productive degenerative changes noted at the acromioclavicular joint. The glenohumeral articulat ion is maintained noting mild degenerative change. The overlying soft tissues are within normal limit s. Airspace opacities are noted at the right lung base. Postoperative change is seen in the right jaja ast. IMPRESSION: 1. No acute bony abnormality is identified. 2. Airspace opacities are noted at the right lung base. Electronically signed by: Brenton Diaz M.D. 12/06/2021 10:57 AM
--- NOTE | 2021-12-06 11:46 | Pulmonary Consultation ---
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 Reports that she was diagnosed with stage 0 breast cancer. She does have numerous mutations per her account that are significant for breast cancer. (3) Closed compression fracture of L4 vertebra: Followed by orthopedic surgery Encounter type: initial encounter Qualified Code(s): S32.040A - Wedge compression fracture of fourth lumbar vertebra, initial encounter for closed fracture Patient's constellation of recent diagnoses and symptoms do raise the concern of possible metastatic cancer. However infectious/inflammatory condition of the lungs is difficult to rule out. Inflammatory markers such as CRP and ESR would likely be of little utility at this time given her spine fracture. Can consider rheumatological work-up as an outpatient. I went over options with her with regards to the lung nodules including starting antibiotics and having a short interval follow-up PET/CT in approximately 4 weeks versus undergoing navigational bronchoscopy and possible EBUS this hospitalization. I will defer navigational bronchoscopy/EBUS to my colleague Dr. Gamboa will be starting pulmonary consult service tomorrow. In the meantime, I have switched her cefazolin to Unasyn for broader coverage in light of her abnormal CT chest. I went over the CT images with the patient in detail and the other reports from the orthopedic surgeon and hospitalist service. She was appreciative. Pulmonary will continue to follow with you. Thank you for the consult. History of Present Illness Reason for Consultation: Abnormal CT chest Attending Physician: Rafael Berman MD History of Present Illness 71-year-old female with a history of prediabetes, hypertension, obesity, GERD, rosacea and irritable bowel syndrome and breast cancer stage 0 status post bilateral mastectomy who presented to the hospital due to back pain. She notes ongoing back pain for the last several weeks. She does have occasional shortness of breath with exertion and when talking. 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 She is a lifelong non-smoker. She denies any prior history of formal diagnosis of lung disease. She has 1 cat at home. No family history of lung cancer. She does have a daughter with breast cancer. No exposures to birds or poultry. Lives in an apartment in [place]. She did have extensive travel history 20-30 years ago in [place] and [place]. Her son was a marine who traveled frequently. Upon work-up in the hospital she had a CT of her abdomen/pelvis, lumbar spine CT and a chest CT. Abdomen pelvis CT demonstrated superior endplate compression fracture of L4. Cystitis was also noted along with bilateral pyelonephritis. Patchy nodular airspace opacity seen at both lung bases. CT of her chest was obtained and innumerable irregular nodular opacities throughout the lungs with the largest measuring 4.3 cm x 2 cm within the right lower lobe were identified. These were felt to be nonspecific and could be infectious or inflammatory. Repeat CT in 3 months was recommended by radiology along with a pulmonary consultation. Mildly enlarged mediastinal nodes were noted as well. Lumbar CT again demonstrated superior endplate compression fracture of L4. No significant leukocytosis was seen. She was found to be anemic with a hemoglobin of 9.1. White count 198. No significant peripheral eosinophilia. Chemistries were normal. B12 was low. Urinalysis was positive for leukoesterase and WBCs. 1+ urine protein. Urine culture with 3 types of organisms suggestive of contamination. She also has been ongoing pain in her right shoulder. Right shoulder x-ray performed with no acute bony abnormality identified. Allergies Allergy/AdvReac Type Severity Reaction Status Date / Time bee venom protein (honey bee) Allergy Severe . Verified 12/04/21 23:31 clobetasol Allergy Allergy Verified 12/04/21 23:32 test said was allergic Home Medications Medication Instructions Recorded Confirmed Type acetaminophen 500 mg tablet 1,000 mg PO Q6H PRN 12/04/21 12/04/21 History (Tylenol Extra Strength) doxycycline hyclate 50 mg capsule 50 mg PO DAILY PRN 12/04/21 12/04/21 History lisinopril 10 mg tablet 10 mg PO DAILY 12/04/21 12/04/21 History lisinopril 5 mg tablet 5 mg PO DAILY 12/04/21 12/04/21 History Patient History Medical History (Updated 12/06/21 @ 11:42 by Can Vanegas MD) History of breast cancer Multiple lung nodules Social History Smoking Status: Never smoker Hx Alcohol Use: Yes Alcohol type: wine Hx Substance Use: No Preferred Language: Bulgarian Communication Ability: Effective [employer] Tale[employer] Manager Required: No Beliefs That Will Affect Care: None Current Living Situation: Alone Other Information That Helps Us Care for You: No Feels Safe at Home: Yes Safety Concerns: Feels Safe At This Time Assistive Devices: None Review of Systems Review of Systems: All systems reviewed & are unremarkable except as noted in HPI & below Physical Exam Physical Exam: Constitutional: Patient appears to be of their stated age. Patient is in no apparent distress. Patient is well-developed. Eyes: Pupils are equal round and reactive to light. Conjunctivae are normal. Anicteric sclera. Ears nose, mouth and throat: No obvious deformities. Neck: Trachea is midline. Visual inspection is normal. Respiratory: Clear to auscultation bilaterally. No use of accessory muscles. No significant clubbing noted. Cardiovascular: Regular rate and rhythm. No murmurs. No edema. Gastrointestinal: Normal bowel sounds, soft, nontender and nondistended. No hepatosplenomegaly noted. Musculoskeletal: No cyanosis. Patient is able to move all extremities. Skin: No rashes, warm dry and intact. Neurologic: No obvious focal neurological deficits seen. Lymph nodes: No supraclavicular lymphadenopathy. Psychiatric: Alert and oriented x3 with a euthymic affect. Results & Data Results & Data ([facility]) Vital Signs (Past 12 Hours) Vital Signs Temp Pulse Resp BP Pulse Ox 12/06/21 08:01 36.8 C 70 16 123/77 99 PG Care Time/CCT Total # of Minutes Spent Total Time Spent with Patient: Total time spent is greater than 50% in coordination of care (as documented) at patient's floor/unit and/or counseling patient: Coding Level of Care Code 17290 Inpt Consult Level 5 Diagnoses Multiple lung nodules R91.8 History of breast cancer Z85.3 Closed compression fracture of L4 vertebra S32.040A Encounter type: initial encounter
[2021-12-06] MEDS: CYANOCOBALAMIN (B-12) 100 MCG TABLET PO SCH (13:42)
[2021-12-06] MEDS: AMPICILLIN/SULBACTAM SOD 1,500 MG in 0.9 % SODIUM CHLORIDE 100 ML IV SCH ×3 (13:45→23:54)
--- NOTE | 2021-12-06 16:09 | Hospitalist Progress Note ---
Date of Service December 06, 2021 Assessment & Plan (1) Closed compression fracture of L4 vertebra: Plan: ASSESSMENT AND PLAN: This is a 71-year-old female who presents with severe back pain and ambulatory dysfunction and found to have pyelonephritis and also L4 compression fracture. 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 History of recent diagnosis of breast cancer, stage 0, left side: Status post bilateral mastectomy. Presenting with lumbar fracture, pulmonary nodules May need lung biopsy Anemia Work-up revealing vitamin B12 mildly low at 176 Start p.o. supplement Shoulder pain No history of trauma Shoulder x-ray: No fracture PT/OT evaluation Outpatient evaluate Deep venous thrombosis prophylaxis: Lovenox. plan of care discussed with patient in detail and at length all questions answered she is understanding, agreeable, comfortable with the plan of care Admission and Anticipated Discharge Date Admission Date: December 05, 2021 Subjective ff up for the L4 fracture, pulmonary nodules, etc. Seen resting in bed, comfortable, not in distress States back pain is slowly improving Able to ambulate to the bathroom back to the bed better No leg weakness or numbness Denies shortness of breath, cough, sputum production, fevers or chills Also reports right shoulder pain, no weakness or numbness No other symptoms Review of Systems Review of Systems: all noted and negative except for above Physical Exam Physical Exam: General- oriented x 3, not in distress, speaks in sentences with no effort or accessory muscle use Eyes- anicteric Neck- no JVD Lungs- clear breath sounds bilaterally, no rales/wheezes Heart- normal rate, regular rhythm; no murmurs Abdomen- normal bowel sounds, nondistended, soft, nontender Extremities- no pretibial edema, no calf tenderness Right shoulder-positive mild tenderness, no edema/warmth Neuro- alert, oriented x 3; no gross focal neurologic deficits Skin- warm & dry Results & Data Results & Data ([facility]) Vital Signs (Past 12 Hours) Vital Signs Temp Pulse Resp BP Pulse Ox 12/06/21 15:15 36.8 C 73 16 109/61 98 12/06/21 08:01 36.8 C 70 16 123/77 99 all noted and reviewed including below (1) Closed compression fracture of L4 vertebra Encounter type: initial encounter Qualified Code(s): S32.040A - Wedge compression fracture of fourth lumbar vertebra, initial encounter for closed fracture
[2021-12-07] MEDS: AMPICILLIN/SULBACTAM SOD 1,500 MG in 0.9 % SODIUM CHLORIDE 100 ML IV SCH ×4 (05:52→23:58)
--- NOTE | 2021-12-07 07:52 | Pulmonology Progress Note ---
Date of Service December 07, 2021 Assessment & Plan (1) Multiple lung nodules: (2) History of breast cancer: (3) Abnormal chest CT: Plan: CT chest 12/05/2021 personally reviewed: Diffuse patchy nodularities appreciated bilaterally More pronounced in the right lower lobe with air bronchogram sign Minimal mediastinal lymphadenopathy --Multiple pulmonary nodules/abnormal chest CT No previous CAT scans to compare Patient did have recent diagnosis of breast cancer s/p bilateral mastectomy April 2021, she did not have a PET/CT at that time Current admission is for bilateral pyelonephritis The multiple pulmonary nodules that she has could be infectious from septic emboli Possibility of malignancy is also there, although I would expect the nodules to be more circumscribed Patient is already on antibiotics with anaerobic coverage Plan: I spoke with the patient regarding the possibilities going forward It is very reasonable to wait 4 weeks and have a repeat CAT scan done. If on the repeat CAT scan the opacities have not decreased in size and/or resolved then PET/CT would be the next step I spoke with patient's son Milton [phone] All questions inquiries of the patient as well as patient's son were answered in depth Please note the above document was generated using voice recognition software. It may contain grammatical, syntax or spelling errors.Any formal questions or concerns about the content, text or information contained within the body of this dictation should be directly addressed to the provider for clarification. Admission and Anticipated Discharge Date Admission Date: December 05, 2021 Subjective Patient seen and examined at bedside. No acute distress, no adverse events overnight. Denies any chest pain, no shortness of breath Denies any belly pain. Good appetite. Has been afebrile. No headache, no nausea or vomiting Review of Systems Review of Systems: All systems reviewed & are unremarkable except as noted in HPI & below Physical Exam Physical Exam: Constitutional: No acute distress HEENT: EOMI, PERRLA Respiratory system: Good air entry bilaterally, no wheeze, no rhonchi, no crackles CVS: S1-S2 positive, no murmurs or gallops Abdomen: Soft, nontender, nondistended, positive bowel sounds x4 Extremities: +2 pulses bilaterally radialis/ dorsalis pedis, no cyanosis, no edema Neuro: Awake alert oriented x3 Psych: Normal mood and affect G/U: No Yusuf Skin: no rashes, warm and dry Lymphatic: no cervical or axillary lymphadenopathy Results & Data Results & Data ([facility]) Vital Signs (Past 12 Hours) Vital Signs Temp Pulse Resp BP Pulse Ox 12/06/21 22:47 36.6 C 80 17 101/62 96 Laboratory Results 12/06/21 06:16 12/06/21 06:16 PG Care Time/CCT Total # of Minutes Spent Total Time Spent with Patient: Total time spent is greater than 50% in coordination of care (as documented) at patient's floor/unit and/or counseling patient: C[place] [address] Subseq Hosp Care Lvl 3 Patient Type Established Diagnoses Multiple lung nodules R91.8 History of breast cancer Z85.[address] R93.89
[2021-12-07] MEDS: lisinopril 10 MG TAB PO SCH (08:56)
[2021-12-07] MEDS: CYANOCOBALAMIN (B-12) 100 MCG TABLET PO SCH (08:57)
[2021-12-07] MEDS: ENOXAPARIN INJ 40 MG/0.4 ML SYR SQ SCH ×2 (08:57→20:05)
[2021-12-07] MEDS: lisinopril 5 MG TAB PO SCH (08:57)
[2021-12-07] MEDS ORDERED: Nursing to Pharmacy Communication SCH (11:00)
[2021-12-07] MEDS: traMADol HCL 50 MG TABLET PO PRN (12:46)
--- NOTE | 2021-12-07 12:51 | Orthopedic Progress Note ---
Date of Service December 07, 2021 Assessment & Plan (1) Closed compression fracture of L4 vertebra: Plan: In regards to acute compression we will treat conservatively in light of her improved pain control. Surgery is also not recommended in light of her acute pyelonephritis. Orthotics has been contacted regarding LSO brace to be worn with activity and ambulation. No lifting greater than 5 pounds. We will see her in the office in about about a week or 2. We will have to forego the MRI at this point. PET scan is certainly an acceptable alternative over the next couple weeks for further evaluation to rule out any type of metastatic disease to her spine in light of her current breast cancer with acute L4 compression fracture without specific accident, trauma, fall. Admission and Anticipated Discharge Date Admission Date: December 05, 2021 Subjective Patient states her lower back pain is improving. She seems to be ambling around the room with ease a bit more. Rates it to be a 7 out of 10. Controlled with pain medication. Denies radicular pain. He has not received her LSO brace yet. She was not able to have her MRI of her lumbar spine over the weekend due to her tissue expanders in her breasts. Tentative surgery for removal this is mid January. Pulmonology is recommending either procedure versus PET scan/CT scan in a few weeks. To my knowledge this is still not been decided. Review of Systems Review of Systems: All systems reviewed & are unremarkable except as noted in HPI & below Physical Exam Physical Exam: Sitting in a chair in no acute distress eating lunch Alert and oriented x3 Strength is intact bilateral lower extremities Results & Data ([facility]) Vital Signs (Past 12 Hours) Vital Signs Temp Pulse Resp BP Pulse Ox 12/07/21 07:51 36.4 C L 71 17 124/72 97 (1) Closed compression fracture of L4 vertebra Encounter type: initial encounter Qualified Code(s): S32.040A - Wedge compression fracture of fourth lumbar vertebra, initial encounter for closed fracture
--- NOTE | 2021-12-07 15:02 | Hospitalist Progress Note ---
Date of Service December 07, 2021 Assessment & Plan (1) Closed compression fracture of L4 vertebra: Plan: ASSESSMENT AND PLAN: This is a 71-year-old female who presents with severe back pain and ambulatory dysfunction and found to have pyelonephritis and also L4 compression fracture. 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 repeat CT chest in 4-6 weeks also on Unasyn IV Hypertension Continue lisinopril. History of recent diagnosis of breast cancer, stage 0, left side: Status post bilateral mastectomy. Presenting with lumbar fracture, pulmonary nodules management of L4 Spine and Pulmonary nodules as above Anemia Work-up revealing vitamin B12 mildly low at 176 Vit b12 supplement ordered Shoulder pain No history of trauma Shoulder x-ray: No fracture PT/OT evaluation Outpatient evaluate Deep venous thrombosis prophylaxis: Lovenox. plan of care discussed with patient in detail and at length all questions answered she is understanding, agreeable, comfortable with the plan of care Admission and Anticipated Discharge Date Admission Date: December 05, 2021 Subjective ff up for L4 compression fracture, possible pyelonephritis, pulmonary nodules, etc seen resting in bed, comfortable states back pain improving- moderate, able to ambulate better denies cough, sputum, dyspnea, fever/chills no abdominal pain, problems with urination no other symptoms Review of Systems Review of Systems: all noted and negative except for above Physical Exam Physical Exam: General- oriented x 3, not in distress, speaks in sentences with no effort or accessory muscle use Eyes- anicteric Neck- no JVD Lungs- clear breath sounds bilaterally, no crackles or wheezing Heart- normal rate, regular rhythm; no murmurs Abdomen- normal bowel sounds, nondistended, soft, nontender no CVA tenderness Extremities- no pretibial edema, no calf tenderness Neuro- alert, oriented x 3; no gross focal neurologic deficits Skin- warm & dry Results & Data Results & Data ([facility]) Vital Signs (Past 12 Hours) Vital Signs Temp Pulse Pulse Resp BP Pulse Ox 12/07/21 14:29 36.4 C L 72 16 96/61 L 96 12/07/21 07:51 36.4 C L 71 17 124/72 97 all noted and reviewed including below (1) Closed compression fracture of L4 vertebra Encounter type: initial encounter Qualified Code(s): S32.040A - Wedge compression fracture of fourth lumbar vertebra, initial encounter for closed fracture
[2021-12-08] MEDS: AMPICILLIN/SULBACTAM SOD 1,500 MG in 0.9 % SODIUM CHLORIDE 100 ML IV SCH ×4 (06:02→23:50)
[2021-12-08 06:44] LABS: Hematocrit (blood only) 24.7 % (37-47); Hemoglobin 8.4 g/dL (12.0-16.0); Mean Corpuscular Hemoglobin 34.6 pg (25-34); Mean Corpuscular Volume 101.6 fL (80-100); Platelet Count 180 K/uL (130-400); RDW Coefficient of Variation 14.2 % (11.5-14.5); RDW Standard Deviation 52.8 fL (36.4-46.3); Red Blood Count 2.43 M/uL (4.2-5.4); White Blood Count 4.46 K/uL (4.8-10.8)
[2021-12-08 07:09] LABS: Creatinine Clr Calc Pharmacy 62.2 ml/min; Est GFR (African American) 78.8 ml/min
--- NOTE | 2021-12-08 09:22 | Pulmonology Progress Note ---
Date of Service December 08, 2021 Assessment & Plan (1) Multiple lung nodules: (2) History of breast cancer: (3) Abnormal chest CT: Plan: CT chest 12/05/2021 personally reviewed: Diffuse patchy nodularities appreciated bilaterally More pronounced in the right lower lobe with air bronchogram sign Minimal mediastinal lymphadenopathy --Multiple pulmonary nodules/abnormal chest CT No previous CAT scans to compare Patient did have recent diagnosis of breast cancer s/p bilateral mastectomy April 2021, she did not have a PET/CT at that time Current admission is for bilateral pyelonephritis The multiple pulmonary nodules that she has could be infectious from septic emboli Possibility of malignancy is also there, although I would expect the nodules to be more circumscribed Patient is already on antibiotics with anaerobic coverage Plan: Patient has decided to pursue a conservative approach with repeating imaging study/PET/CT in 4 weeks which will be around January 06 Based on the PET/CT next depth will be decided. Follow-up blood culture Continue with antibiotics for 10-14 days. No further recommendation from pulmonary perspective. Will sign off. Please call directly with any questions Patient's son Milton [phone] Please note the above document was generated using voice recognition software. It may contain grammatical, syntax or spelling errors.Any formal questions or concerns about the content, text or information contained within the body of this dictation should be directly addressed to the provider for clarification. Admission and Anticipated Discharge Date Admission Date: December 05, 2021 Subjective Patient seen and examined at bedside. No acute distress, no adverse events overnight Denies any shortness of breath, no chest pain. She has been complaining of right-sided shoulder pain. Shoulder x-ray done yesterday did not show any bony abnormality. No nausea or vomiting. Good appetite Review of Systems Review of Systems: All systems reviewed & are unremarkable except as noted in Subjective Physical Exam Physical Exam: Constitutional: No acute distress HEENT: EOMI, PERRLA Respiratory system: Good air entry bilaterally, no wheeze, no rhonchi, no crackles CVS: S1-S2 positive, no murmurs or gallops Abdomen: Soft, nontender, nondistended, positive bowel sounds x4 Extremities: +2 pulses bilaterally radialis/ dorsalis pedis, no cyanosis, no edema Neuro: Awake alert oriented x3 Psych: Normal mood and affect G/U: No Yusuf Skin: no rashes, warm and dry Lymphatic: no cervical or axillary lymphadenopathy Results & Data Results & Data ([facility]) Vital Signs (Past 12 Hours) Vital Signs Temp Pulse Resp BP Pulse Ox 12/08/21 07:51 36.4 C L 66 16 106/68 99 12/07/21 21:56 36.5 C 63 16 103/63 99 Laboratory Results 12/08/21 06:31 12/08/21 06:31 PG Care Time/CCT Total # of Minutes Spent Total Time Spent with Patient: Total time spent is greater than 50% in coordination of care (as documented) at patient's floor/unit and/or counseling patient: Coding Level of Care Code 71223 Subseq Hosp Care Lvl 2 Diagnoses Multiple lung nodules R91.8 History of breast cancer Z85.[address] R93.89
[2021-12-08] MEDS: ENOXAPARIN INJ 40 MG/0.4 ML SYR SQ SCH ×2 (09:41→21:33)
[2021-12-08] MEDS: CYANOCOBALAMIN (B-12) 100 MCG TABLET PO SCH (09:41)
--- NOTE | 2021-12-08 19:37 | Hospitalist Progress Note ---
Date of Service December 08, 2021 Assessment & Plan (1) Closed compression fracture of L4 vertebra: Plan: ASSESSMENT AND PLAN: This is a 71-year-old female who presents with severe back pain and ambulatory dysfunction and found to have pyelonephritis and also L4 compression fracture. 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 Improving Trial of tramadol as needed Orthopedic service consulted: LSO brace recommended, PET scan in 2 weeks, ff up with Ortho in 2 weeks PT OT evaluation ordered Back pain overall has improved Possible bilateral pyelonephritis Based on CT imaging Urine culture: negative Denies urinary symptoms On cefazolin x 2 days, transitioned to Unasyn IV Day 3 Multiple pulmonary nodules Concerning as patient has recent diagnosis of breast cancer, status post bilateral mastectomy Pulmonary service consulted: sputum and blood cultures pending Offered bronchoscopy, patient at this time prefers to repeat PET scan in 2- weeks, and outpatient follow-up with pulmonology Hypertension Continue lisinopril. History of recent diagnosis of breast cancer, stage 0, left side: Status post bilateral mastectomy. Presenting with lumbar fracture, pulmonary nodules management of L4 Spine and Pulmonary nodules as above Anemia Work-up revealing vitamin B12 mildly low at 176 Vit b12 supplement ordered Shoulder pain No history of trauma Shoulder x-ray: No fracture PT/OT evaluation Outpatient evaluate Deep venous thrombosis prophylaxis: Lovenox. Disposition Anticipate discharge home tomorrow plan of care discussed with patient in detail and at length all questions answered she is understanding, agreeable, comfortable with the plan of care Admission and Anticipated Discharge Date Admission Date: December 05, 2021 Subjective Follow-up for back pain, pulmonary nodules in the setting of breast cancer, status post bilateral mastectomy, etc. Seen resting in bed, sleeping but easily awakened States that she feels improved today, still having some back pain but more manageable Ambulating in the hallways better than at home Denies shortness of breath, cough, fevers or chills, sputum production No other symptom Review of Systems Review of Systems: all noted and negative except for above Physical Exam Physical Exam: General- oriented x 3, not in distress, speaks in sentences wi th no effort or accessory muscle use Eyes- anicteric Neck- no JVD Lungs- clear breath sounds, no rales, no wheezing no rales bilateral Heart- normal rate, regular rhythm; no murmurs Abdomen- normal bowel sounds, nondistended, soft, nontender Extremities- no pretibial edema, no calf tenderness Neuro- alert, oriented x 3; no gross focal neurologic deficits Skin- warm & dry Results & Data Results & Data ([facility]) Vital Signs (Past 12 Hours) Vital Signs Temp Pulse Resp BP Pulse Ox 12/08/21 14:35 36.5 C 71 16 103/65 100 12/08/21 07:51 36.4 C L 66 16 106/68 99 all noted and reviewed including below (1) Closed compression fracture of L4 vertebra Encounter type: initial encounter Qualified Code(s): S32.040A - Wedge compression fracture of fourth lumbar vertebra, initial encounter for closed fracture
[2021-12-08] MEDS ORDERED: lisinopril 10 MG TAB PO SCH (21:00)
[2021-12-08] MEDS ORDERED: lisinopril 5 MG TAB PO SCH (21:00)
[2021-12-08] MEDS: traMADol HCL 50 MG TABLET PO PRN (21:34)
[2021-12-09] MEDS: AMPICILLIN/SULBACTAM SOD 1,500 MG in 0.9 % SODIUM CHLORIDE 100 ML IV SCH ×2 (05:58→12:34)
[2021-12-09] MEDS: ENOXAPARIN INJ 40 MG/0.4 ML SYR SQ SCH (08:37)
[2021-12-09] MEDS: CYANOCOBALAMIN (B-12) 100 MCG TABLET PO SCH (08:37)
--- NOTE | 2021-12-09 10:03 | Hospitalist Progress Note ---
Date of Service December 09, 2021 Assessment & Plan (1) Closed compression fracture of L4 vertebra: Plan: ASSESSMENT AND PLAN: This is a 71-year-old female who presents with severe back pain and ambulatory dysfunction and found to have pyelonephritis and also L4 compression fracture. 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 Gamboa: sputum and blood cultures Negative x 48 hrs Offered bronchoscopy, patient at this time prefers conservative approach- repeat PET scan/CT chest in 4 weeks continue Augmentin x 10 more day outpatient follow-up with [facility] Dr. Gamboa in 4 weeks Hypertension Continue lisinopril. History of recent diagnosis of breast cancer, stage 0, left side: Status post bilateral mastectomy. Presenting with lumbar fracture, pulmonary nodules management of L4 Spine and Pulmonary nodules as above ff up with Oncologist as scheduled Anemia Work-up revealing vitamin B12 mildly low at 176 Vit b12 supplement ordered ff up as outpatient Shoulder pain No history of trauma Shoulder x-ray: No fracture improving, pls ff up Deep venous thrombosis prophylaxis: Lovenox. Disposition Anticipate discharge home today ff up with PCP in 1 week plan of care discussed with patient in detail and at length all questions answered she is understanding, agreeable, comfortable with the plan of care Admission and Anticipated Discharge Date Admission Date: December 05, 2021 Subjective ff up for l4 compression fracture, etc seen resting in bed, comfortable states she feels better overall back pain minimal- relieved by Tramadol no dyspnea, cough, chest pain, fever/chills no other symptoms states she is ready and would like to be discharged today Review of Systems Review of Systems: all noted and negative except for above Physical Exam Physical Exam: General- oriented x 3, not in distress, speaks in sentences with no effort or accessory muscle use Eyes- anicteric Neck- no JVD Lungs- clear breath sounds bilaterally Heart- normal rate, regular rhythm; no murmurs Abdomen- normal bowel sounds, nondistended, soft, nontender Extremities- no pretibial edema, no calf tenderness Neuro- alert, oriented x 3; no gross focal neurologic deficits Skin- warm & dry Results & Data Results & Data ([facility]) Vital Signs (Past 12 Hours) Vital Signs Temp Pulse Resp BP Pulse Ox 12/09/21 07:44 36.6 C 79 16 90/54 L 98 12/08/21 22:07 36.6 C 65 16 109/69 99 all noted and reviewed including below (1) Closed compression fracture of L4 vertebra Encounter type: initial encounter Qualified Code(s): S32.040A - Wedge compression fracture of fourth lumbar vertebra, initial encounter for closed fracture
--- NOTE | 2021-12-23 10:55 | Discharge Summary ---
Date of Service December 23, 2021 Admission HPI Per Admitting Provider HISTORY OF PRESENT ILLNESS: A 71-year-old female with past medical history significant for type 2 diabetes, hypertension, obesity, GERD, irritable bowel syndrome, lichen sclerosis, rosacea, restless legs syndrome, osteoarthritis, recent history of left breast cancer stage 0 status post bilateral mastectomy. Comes in with back pain. The patient's back pain is going on for the last 3 weeks. In October, she was treated for UTI with Bactrim for 1 week. But back pain is getting worse and she is not able to even ambulate. That is the reason she came here. Here, imaging studies, CAT scan of lumbar spine and CT scan of the abd/pelvis was done, which was showing pyelonephritis and also mild acute superior endplate compression fracture of L4. The patient was started on antibiotics. Currently, resting comfortably, hemodynamically stable. Denies any headache or dizziness. Currently, no blurred visions, no sore throat, no cough. Currently, no nausea, no chest pain, no abdominal pain. Normal bowel and bladder movements. Hemodynamically stable. ALLERGIES: BEE STING AND CLOBETASOL. PAST MEDICAL HISTORY: As mentioned above. PAST SURGICAL HISTORY: Breast reconstruction surgery, left deep axillary lymph node biopsy, colonoscopy, laparoscopic cholecystectomy, simple mastectomy. MEDICATIONS: The patient is on doxycycline 100 mg p.o. daily p.r.n., lisinopril 15 mg p.o. daily, Tylenol Extra Strength 1000 mg p.o. q. 6 hours p.r.n. FAMILY HISTORY: Significant for maternal cousin has breast cancer, daughter has breast cancer, brother has cancer, maternal grandfather had colon cancer, brother has stroke, another brother has schizophrenia, mother has heart disorder. SOCIAL HISTORY: No smoking. Alcohol, rarely. No drug use. REVIEW OF SYSTEMS: As per HPI. Rest of the review of systems is negative. Admission Exam Per Admitting Provider PHYSICAL EXAMINATION: GENERAL: The patient is obese, not in acute distress. VITAL SIGNS: Temperature 36.5, pulse 83, respiratory rate 16, blood pressure 123/65, oxygen 98% on room air. HEENT: Pupils equal, round, and reactive to light. Oral mucosa moist. NECK: No JVD, no neck masses. CARDIOVASCULAR: S1 and S2 heard. Regular rate and rhythm. No murmur, no gallop. RESPIRATORY SYSTEM: Normal AP diameter. No accessory muscle use. No wheezing, no crackles. ABDOMEN: Soft, bowel sounds present, nontender, no distention. CENTRAL NERVOUS SYSTEM: Cranial nerves II through XII grossly intact, nonfocal. MUSCULOSKELETAL: Lumbar spinal tenderness present. Bilateral straight leg test positive. EXTREMITIES: No edema, no erythema. Principal Diagnosis L4 compression fracture With ambulatory dysfunction Possible bilateral pyelonephritis Multiple pulmonary nodules Discharge Exam General- oriented x 3, not in distress, speaks in sentences with no effort or accessory muscle use Eyes- anicteric Neck- no JVD Lungs- clear breath sounds bilaterally Heart- normal rate, regular rhythm; no murmurs Abdomen- normal bowel sounds, nondistended, soft, nontender Extremities- no pretibial edema, no calf tenderness Neuro- alert, oriented x 3; no gross focal neurologic deficits Skin- warm & dry Discharge Data Allergies Allergy/AdvReac Type Severity Reaction Status Date / Time bee venom protein (honey bee) Allergy Severe . Verified 12/04/21 23:31 clobetasol Allergy Allergy Verified 12/04/21 23:32 test said was allergic Consultations 12/04/21 23:09 ED Decision to Admit Stat 12/05/21 08:00 Consult Orthopedic Surgery Routine 12/06/21 09:42 Consult Pulmonology Routine Ordered Studies 12/04/21 19:43 CT abd pelvis IV con only Stat CT lumbar spine w con Stat FINDINGS: Lung bases: The heart is normal in size and without pericardial effusion. There are coronary artery calcifications. Patchy nodular airspace consolidation is seen at both lung bases. No pleural effusion is identified. Bilateral breast implants are partially imaged. Liver: The contrast-enhanced liver is normal in size, contour, and attenuation. There is mild intrahepatic biliary ductal dilatation. The hepatic veins and portal veins are patent. Gallbladder: Surgically absent noting clips in the gallbladder fossa. Spleen: Normal in size and attenuation. Pancreas: Unremarkable. Adrenal glands: Unremarkable. Kidneys: The contrast enhanced kidneys are normal in size and without hydronephrosis. Both kidneys demonstrate heterogeneous enhancement. 2 left renal cysts measure up to 3.4 cm. Abdominal vasculature: The abdominal aorta is normal in course and caliber. Bowel: There is mild to moderate colonic fecal retention. No bowel obstruction is identified. The appendix is diminutive and grossly unremarkable. Peritoneum: There is no intraperitoneal free air or abdominal ascites. There is a small fat-containing umbilical hernia. Lymphadenopathy: None. Pelvic viscera: The bladder wall appears mildly thickened and there is pericystic infiltration. The uterus and adnexa are normal as visualized. Skeletal structures: The skeletal structures are osteopenic. See below for dedicated discussion of the lumbar spine. The bony pelvis and proximal femora appear intact. Sclerotic change is noted in the pubic symphysis. No lytic or blastic lesions are seen. LUMBAR SPINE: There is a mild acute superior endplate compression fracture of L4. There are minimally retropulsed fragments. Vertebral body height is otherwise maintained throughout the lumbar spine. Alignment is preserved. Small anterior and lateral marginal osteophytes are seen throughout. The transverse and spinous processes are intact. Facet arthropathy is noted in the lower lumbar region. There is no evidence of spondylolysis. There is moderate disc space narrowing at L4-L5. Mild disc space narrowing is seen at the remaining lumbar levels. There is no CT evidence of large disc herniation or high-grade central canal stenosis. The paraspinous soft tissues are within normal limits. IMPRESSION: 1. Findings suggest cystitis with ascending urinary tract infection/bilateral pyelonephritis. Correlate with clinical findings and urinalysis. 2. Patchy nodular airspace consolidation is seen at both lung bases. Correlate clinically for evidence of pneumonia. Given the nodular configuration, a follow- up chest CT is recommended in 3 months time to document resolution. 3. There is a mild acute superior endplate compression fracture of L4. 4. Additional findings as above. ACT 112: Positive. There are findings on this exam that require communication between the performing entity and the patient following Patient Test Result Information Act ([place] Act 112) guidelines. 12/05/21 01:51 CT chest diagnostic wo con Urgent FINDINGS: Size of the heart is normal. There is no pericardial effusion. There are multiple mildly enlarged mediastinal lymph nodes. Index pretracheal lymph node on axial image 65 of 296 measures 1.6 x 1.3 cm. Mildly enlarged subcarinal lymph node measures 1.1 cm. Central airways are patent. There is no pneumothorax or pleural effusion. There are innumerable irregular nodular opacities throughout the lungs. The largest is a right lower lobe focus on axial image 221 which measures 4.3 x 2 cm. No suspicious lesions are identified within the bony thorax. Postoperative findings within each breast are noted with suspected tissue expanders in place. A few cysts within the upper pole of the left kidney are present. IMPRESSION: 1. Innumerable irregular nodular opacities throughout the lungs, the largest of which is a 4.3 x 2 cm focus within the right lower lobe. These are nonspecific and could be infectious or inflammatory. A follow-up chest CT in 3 months is recommended as a neoplastic etiology cannot be completely excluded. Pulmonary consultation might also be considered. 2. Multiple mildly enlarged mediastinal lymph nodes which are also nonspecific and can be assessed on follow-up CT. Hospital Course (1) Closed compression fracture of L4 vertebra: ASSESSMENT AND PLAN: This is a 71-year-old female who presents with severe back pain and ambulatory dysfunction and found to have pyelonephritis and also L4 compression fracture. 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 Gamboa: sputum and blood cultures Negative x 48 hrs Offered bronchoscopy, patient at this time prefers conservative approach- repeat PET scan/CT chest in 4 weeks continue Augmentin x 10 more day outpatient follow-up with [facility] Dr. Gamboa in 4 weeks Hypertension Continue lisinopril. History of recent diagnosis of breast cancer, stage 0, left side: Status post bilateral mastectomy. Presenting with lumbar fracture, pulmonary nodules management of L4 Spine and Pulmonary nodules as above ff up with Oncologist as scheduled Anemia Work-up revealing vitamin B12 mildly low at 176 Vit b12 supplement ordered ff up as outpatient Shoulder pain No history of trauma Shoulder x-ray: No fracture improving, pls ff up Coronary Artery Calcification outpatient management Deep venous thrombosis prophylaxis: Lovenox. Disposition discharge home today ff up with PCP in 1 week plan of care discussed with patient in detail and at length all questions answered she is understanding, agreeable, comfortable with the plan of care Total Time Total Time Spent Total Time Spent (In Minutes): >30 minutes Discharge Plan Discharge Items Patient Disposition: Home - Self-Care Reason For Visit: BACK PAIN Discharge Diagnosis: L4 COMPRESSION FRACTURE MULTIPLE PULMONARY NODULES HISTORY OF STAGE 0 BREAST CANCER, S/P MASTECTOMY Activity: As commented below Activity Comment: INCREASE ACTIVITY GRADUALLY TOLERATED, ALWAYS USE WALKER Lifting: Wait until after follow-up appointment Exercise/Sports: Wait until after follow-up appointment Driving/Machine Use: NO DRIVING UNTIL RE-EVALUATED AND ALLOWED BY PRIMARY CARE PHYSICIAN Non-emergency contact: Primary Care Provider Call non-emergency contact if: you have any medication questions, your symptoms worsen, your pain is not controlled, your pain is worsening, your pain is unusual for you, your pain is concerning for you and you have a fever Follow-up/Referrals: Dipesh Gamboa MD [Physician] - Max Barakat DO [Surgeon] - Sherwin Obrien MD [Primary Care Provider] - 12/15/21 2:40 pm (Date & Time 12/15/2021 2:40 PM Provider Sherwin Obrien MD [facility] ) Diet: Heart Healthy Addtl Attending Provider Instructions: PLEASE REFER TO YOUR NEW MEDICATION LIST AND FOLLOW INSTRUCTIONS CAREFULLY. YOUR NEW MEDICATIONS INCLUDE: AUGMENTIN - antibiotic for possible pneumonia and UTI DOXYCYCLINE- antibiotic for pneumonia, always take with food VITAMIN B12 SUPPLEMENT- for anemia TRAMADOL- for moderate to severe pain TAKE A PROBIOTIC AND EAT YOGURT DAILY X 1 MONTH AT LEAST. PLEASE CALL YOUR PRIMARY CARE PHYSICIAN OR RETURN TO THE ER IF WITH WORSENING OF SYMPTOMS, INCLUDING fever/chills, cough, shortness of breath, worsening back pain, leg weakness or numbness. FOLLOW UP WITH PRIMARY CARE PHYSICIAN OUTLINED ABOVE. YOU NEED A PET SCAN AND CT SCAN OF THE CHEST IN 4 WEEKS. FOLLOW UP WITH LUNG SPECIALIST DR. GAMBOA IN 4 WEEKS. PLEASE CALL HIS OFFICE FOR AN APPOINTMENT. CONTACT. INFORMATION OUTLINED ABOVE. FOLLOW UP WITH DR. BARAKAT IN 4 WEEKS. Pending Studies at Discharge: Yes (PET SCAN AND CT SCAN OF THE CHEST IN 4 WEEKS ) Stand-Alone Forms: [employer], Work/School Release, Smoking Cessation Medications and DC Order Prescriptions: New tramadol 50 mg Tablet 50 mg PO Q4H PRN (Reason: MODERATE-SEVERE PAIN) Qty: 15 RF: 0 cyanocobalamin (vitamin B-12) [Vitamin B-12] 100 mcg Tablet 100 mcg PO QAM Qty: 30 RF: 2 amoxicillin 875 mg tablet 875 mg PO BID Qty: 20 RF: 0 Continued doxycycline hyclate 50 mg capsule 50 mg PO DAILY PRN (Reason: ROSECEA) RF: 0 acetaminophen [Tylenol Extra Strength] 500 mg Tablet 1,000 mg PO Q6H PRN (Reason: Pain) RF: 0 lisinopril 10 mg tablet 10 mg PO DAILY RF: 0 lisinopril 5 mg tablet 5 mg PO DAILY RF: 0 Discharge Orders: Discharge Order (Routine); Ordered 12/09/21 Ordered By: Rafael Guy/Other Patient Handouts: Prediabetes, 5 Steps for Eating Healthier, ED Pyelonephritis, Female (Adult) Admission Data Admit Date/Time: 12/05/21 00:08 Attending Provider: Laly Bolton Admit Provider: Nithin Jacques Primary Care Provider: Sherwin Obrien Other Providers: Max Barakat ; Can Vanegas ; Nithin Jacques Other Interventions: Discharge Summary Assessment (RN) Last Done: 12/09/21 10:34
== END 2021-12-09 17:20 | disposition home or self-care (01) | DRG 543 ==
LOC: ED 18:36 → 3E 12-05 00:08 → SUATTDRO 12-05 00:08 → 3E 12-05 01:26
DX: N12 Tubulo-interstitial nephritis, not specified as acute or chronic; D64.9 Anemia, unspecified; E11.9 Type 2 diabetes mellitus without complications; R91.8 Other nonspecific abnormal finding of lung field; Z68.35 Body mass index [BMI] 35.0-35.9, adult; K58.9 Irritable bowel syndrome, unspecified; E66.9 Obesity, unspecified; G25.81 Restless legs syndrome; K21.9 Gastro-esophageal reflux disease without esophagitis; I10 Essential (primary) hypertension; Z85.3 Personal history of malignant neoplasm of breast; Z80.3 Family history of malignant neoplasm of breast; E86.0 Dehydration; M48.56XA Collapsed vertebra, not elsewhere classified, lumbar region, initial encounter for fracture

== ENCOUNTER 2022-04-26 19:18 | Inpatient (IN) ==
--- NOTE | 2022-04-26 20:44 | Emergency Department Note ---
Impression & Plan ANDRADE (acute kidney injury), Medication side effect ED Provider Note NAME: THERESE PADRON AGE: 71 SEX: F : 1950 ARRIVES VIA: Walk-In INFORMANT: Patient, ED PROVIDER(S): Benson Goldberg MD Chief Complaint: Concern for kidney dysfunction, abnormal outpatient blood work, outpatient referral HPI: Patient presents at the behest of her primary care doctor she was told that she had abnormal kidney function with a creatinine of 2.6 and potassium of 5.5. Patient states that she has been eating and drinking normally. The patient does relate that she recently finished a course of Bactrim approximately 6 days prior for UTI. The patient denies any fevers chills chest pains or shortness of breath. The patient also relates that she has been taking for her milligrams of ibuprofen 3 times daily for about 2 to 3 weeks for some chronic right shoulder pain. Patient is being followed for some pulmonary nodules and is scheduled for a bronchoscopy on Tuesday. Patient denies any difficulties with urination or dy suria. No flank pain or kidney stones. The patient denies any blood in urine or stool. ROS: See HPI for pertinent positives and negatives. A total of 10 systems were reviewed and otherwise negative. Past medical history: See below Surgical history: See below Social history: See below Physical Exam: GENERAL: NAD, wearing a mask, non-toxic. Wearing glasses. EYE EXAM: Normal conjunctiva. PERRL, no anisocoria and EOM's grossly intact w/o pain. NECK: Supple, no nuchal rigidity, no adenopathy, non-tender. No signs of meningismus. FROM of the neck with good chin to chest and neck extension. No stridor. LUNGS: Clear to auscultation. Normal chest wall mechanics. HEART: NSR, no MRG. ABDOMEN: Abdomen soft, non-tender, normo-active bowel sounds, no masses, no rebound or guarding. BACK: No CVA TTP. SKIN: No rashes and no bruising. UPPER EXTREMITIES: Upper extremities are grossly normal. LOWER EXTREMITIES: Grossly normal, no edema. NEURO EXAM: A&O x3, cranial nerves II-XII grossly intact, normal speech, moves all 4 extremities. Differential diagnoses: Infection, dehydration, metabolic abnormality, hypo/hyperglycemia, electrolyte disturbance, anemia, hypoxia, cardiac sources, intracerebral event, toxicologic, neurologic, as well as other pathologies. Course: Patient was seen and evaluated the bedside. Full history physical exam was performed. EKG interpreted by me Normal sinus rhythm, rate of 78, normal intervals, normal axis. No ST elevations, T wave version in V2. Imaging Studies: See Below Cardiac monitoring: An order was placed for continuous cardiac monitoring. The monitor shows a rate of 85 with sinus rhythm. MDM: Patient presents due to concern for abnormal kidney function. The patient did have blood work completed along with a CK urinalysis was ordered and the patient was given IV fluid bolus. Patient has a normal white count with a hemoglobin of 8.7 which is relatively chronic and stable. The patient's platelet count is unremarkable. Kidney function does show a creatinine of 2.4 most recent was 0.8 in November. Do believe the patient's acute kidney injury is likely secondary to the patient's NSAID and Bactrim use. Patient's calcium is slightly elevated 10.9 but may be dehydrated. Patient's CK is not elevated. Urinalysis does not show evidence of obvious infection. The patient was recently treated for UTI has leuks and whites but is numerous at epithelials no nitrites or bacteria the patient does not complain of any dysuria. Will defer treatment at this time. I did speak the on-call hospitalist Dr. Jacques and the patient was admitted to the medicine service. 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 Verified 12/04/21 23:31 clobetasol Allergy Allergy Verified 12/04/21 23:32 test said was allergic Home Meds Home Medications Medication Instructions Recorded Confirmed colchicine 0.6 mg tablet 0.6 mg PO AMHS 04/26/22 04/26/22 cyclobenzaprine 5 mg tablet 5 mg PO UD PRN Muscle Spasm 04/26/22 04/26/22 epinephrine 0.3 mg/0.3 mL 0.3 mg IM UD PRN Allergic Reaction 04/26/22 04/26/22 injection, auto-injector gabapentin 100 mg capsule 200 mg PO TID 04/26/22 04/26/22 Previous Rx's Medication Instructions Recorded cyanocobalamin (vitamin B-12) 100 100 mcg PO QAM #30 tabs 12/09/21 mcg tablet (Vitamin B-12) Results & Data (ED) Vital Signs Vital Signs - 24 hr 04/26/22 19:22 04/26/22 20:52 04/26/22 21:07 Temperature 36.7 C Temperature Source Temporal Artery Scan Pulse Rate 98 H Pulse Rate [Finger] 79 Respiratory Rate 18 22 Respiratory Effort / Characteristics Non-Labored Spontaneous Non-Labored Respiratory Depth Normal Normal Blood Pressure 124/61 Blood Pressure [Left Arm] 145/84 H Blood Pressure Mean 82 Blood Pressure Mean [Left Arm] 104 Blood Pressure Position Sitting Blood Pressure Position [Left Arm] Sitting Pulse Oximetry 95 97 Oxygen Delivery Method Room Air Room Air Sepsis Recent Fever Within 48 Hours No Sepsis New/Unexplained Change in Mental Status No Sepsis Action Taken by Nursing No Action Required 04/26/22 23:19 04/26/22 23:25 04/27/22 00:41 Temperature 36.9 C Temperature Source Temporal Artery Scan Pulse Rate Pulse Rate [Finger] 79 74 Respiratory Rate 18 19 Respiratory Effort / Characteristics Non-Labored Spontaneous Respiratory Depth Normal Blood Pressure Blood Pressure [Left Arm] 136/82 136/82 Blood Pressure Mean Blood Pressure Mean [Left Arm] 100 100 Blood Pressure Position Blood Pressure Position [Left Arm] Pulse Oximetry 98 98 Oxygen Delivery Method Room Air Room Air Sepsis Recent Fever Within 48 Hours Sepsis New/Unexplained Change in Mental Status Sepsis Action Taken by Nursing 04/27/22 01:01 Temperature Temperature Source Pulse Rate Pulse Rate [Finger] 77 Respiratory Rate 18 Respiratory Effort / Characteristics Non-Labored Spontaneous Respiratory Depth Normal Blood Pressure Blood Pressure [Left Arm] 130/83 Blood Pressure Mean Blood Pressure Mean [Left Arm] 98 Blood Pressure Position Blood Pressure Position [Left Arm] Lying Pulse Oximetry 97 Oxygen Delivery Method Room Air Sepsis Recent Fever Within 48 Hours Sepsis New/Unexplained Change in Mental Status Sepsis Action Taken by Skilled Nursing Medications Current Medication List: was personally reviewed by me Laboratory Data Attestation: I reviewed the patient's lab results. Result diagrams: 04/26/22 20:35 04/26/22 20:35 Lab Results 04/26/22 04/26/22 04/26/22 Range/Units 20:35 20:35 20:35 WBC 6.69 (4.8-10.8) K/ul RBC 2.59 L (3.93-5.22) M/uL Hgb 8.7 L (12.0-16.0) g/dl Hct 26.8 L (34.1-44.9) % MCV 103.5 H (80.0-100.0) fL MCH 33.6 (25.0-34.0) pg MCHC 32.5 (32.0-36.0) g/dL RDW Std Deviation 58.1 H (36.4-46.3) fL RDW Coeff of Sophia 15.5 H (11.5-14.5) % Plt Count 278 (130-400) K/uL MPV 9.4 (9.4-12.3) fL Immature Gran % (Auto) 0.6 % Neut % (Auto) 63.5 % Lymph % (Auto) 27.5 % Cobb % (Auto) 6.3 % Eos % (Auto) 1.5 % Baso % (Auto) 0.6 % Neut # (Auto) 4.25 (1.4-6.5) K/uL Lymph # (Auto) 1.84 (1.2-3.4) K/uL Cobb # (Auto) 0.42 (0.24-0.82) K/uL Eos # (Auto) 0.10 (0-0.50) K/uL Baso # (Auto) 0.04 (0-0.2) K/uL Immature Gran # (Auto) 0.04 H (0.00-0.02) K/uL Sodium 137 (136-145) mmol/L Potassium 4.7 (3.5-5.1) mmol/L Chloride 105 (98-107) mmol/L Carbon Dioxide 22 (21-32) mmol/L Anion Gap 10 (3-11) BUN 45 H (6-23) mg/dl Creatinine 2.40 H (0.6-1.2) mg/dl Est Cr Clr Drug Dosing 20.1 ml/min Est GFR ( Amer) 22.8 ml/min Est GFR (Non-Af Amer) 19.7 ml/min BUN/Creatinine Ratio 18.8 (10-20) Glucose 109 H (70-99(Fasting)) mg/dl Calcium 10.9 H (8.5-10.1) mg/dl Total Bilirubin 0.3 (0.2-1.0) mg/dl AST 25 (13-39) U/L ALT 12 (7-52) U/L Alkaline Phosphatase 127 H (34-104) U/L Total Creatine Kinase 44 (26-192) U/L Total Protein 7.0 (6.0-8.3) gm/dl Albumin 4.1 (3.4-5.0) gm/dl Globulin 2.9 (2.5-4.0) gm/dl Albumin/Globulin Ratio 1.4 (0.9-2) Urine Color Urine Appearance (Clear) Urine pH (4.5-7.5) Ur Specific Liberal (1.000-1.030) Urine Protein (Negative) Urine Glucose (UA) (Negative) Urine Ketones (Negative) Urine Blood (Negative) Urine Nitrite (Negative) Urine Bilirubin (Negative) Urine Urobilinogen (Negative) Ur Leukocyte Esterase (Negative) Urine WBC (Auto) (0-5) /hpf Urine RBC (Auto) (0-4) /hpf U Hyaline Cast (Auto) (0-5) /lpf U Epithel Cells (Auto) (0-5) /lpf Urine Bacteria (Auto) (Negative) 04/26/22 Range/Units 22:01 WBC (4.8-10.8) K/ul RBC (3.93-5.22) M/uL Hgb (12.0-16.0) g/dl Hct (34.1-44.9) % MCV (80.0-100.0) fL MCH (25.0-34.0) pg MCHC (32.0-36.0) g/dL RDW Std Deviation (36.4-46.3) fL RDW Coeff of Sophia (11.5-14.5) % Plt Count (130-400) K/uL MPV (9.4-12.3) fL Immature Gran % (Auto) % Neut % (Auto) % Lymph % (Auto) % Cobb % (Auto) % Eos % (Auto) % Baso % (Auto) % Neut # (Auto) (1.4-6.5) K/uL Lymph # (Auto) (1.2-3.4) K/uL Cobb # (Auto) (0.24-0.82) K/uL Eos # (Auto) (0-0.50) K/uL Baso # (Auto) (0-0.2) K/uL Immature Gran # (Auto) (0.00-0.02) K/uL Sodium (136-145) mmol/L Potassium (3.5-5.1) mmol/L Chloride (98-107) mmol/L Carbon Dioxide (21-32) mmol/L Anion Gap (3-11) BUN (6-23) mg/dl Creatinine (0.6-1.2) mg/dl Est Cr Clr Drug Dosing ml/min Est GFR ( Amer) ml/min Est GFR (Non-Af Amer) ml/min BUN/Creatinine Ratio (10-20) Glucose (70-99(Fasting)) mg/dl Calcium (8.5-10.1) mg/dl Total Bilirubin (0.2-1.0) mg/dl AST (13-39) U/L ALT (7-52) U/L Alkaline Phosphatase (34-104) U/L Total Creatine Kinase (26-192) U/L Total Protein (6.0-8.3) gm/dl Albumin (3.4-5.0) gm/dl Globulin (2.5-4.0) gm/dl Albumin/Globulin Ratio (0.9-2) Urine Color Yellow Urine Appearance Clear (Clear) Urine pH 5.0 (4.5-7.5) Ur Specific Liberal 1.022 (1.000-1.030) Urine Protein 2+ H (Negative) Urine Glucose (UA) Negative (Negative) Urine Ketones Negative (Negative) Urine Blood Trace H (Negative) Urine Nitrite Negative (Negative) Urine Bilirubin Negative (Negative) Urine Urobilinogen Negative (Negative) Ur Leukocyte Esterase Trace H (Negative) Urine WBC (Auto) 5-10 H (0-5) /hpf Urine RBC (Auto) 0-4 (0-4) /hpf U Hyaline Cast (Auto) 5-10 H (0-5) /lpf U Epithel Cells (Auto) >30 H (0-5) /lpf Urine Bacteria (Auto) Negative (Negative) Administered Medications Discontinued Medications Sodium Chloride (Nss 1000ml) 1,000 mls @ 999 mls/hr IV .Q1H1M ONE Stop: 04/26/22 22:04 Last Infusion: 04/26/22 23:21 Dose: 0 mls/hr Documented By: Admin: 04/26/22 21:14 Dose: 999 mls/hr Documented By: TONO Discharge Plan Visit Data Chief Complaint: Referred by Doctor Stated Complaint: ACUTE RENAL FAILURE ED Provider: Benson Goldberg Discharge Problem: ANDRADE (acute kidney injury), Medication side effect Patient Disposition: Admitted As Inpatient Forms Stand Alone Forms: [facility] Prescriptions Prescriptions: No Action gabapentin 100 mg capsule 200 mg PO TID Rx Instructions: take 2 capsules in morning,noon and before bed colchicine 0.6 mg tablet 0.6 mg PO AMHS epinephrine 0.3 mg/0.3 mL auto-injector 0.3 mg IM UD PRN (Reason: Allergic Reaction) cyclobenzaprine 5 mg tablet 5 mg PO UD PRN (Reason: Muscle Spasm) cyanocobalamin (vitamin B-12) [Vitamin B-12] 100 mcg Tablet 100 mcg PO QAM Qty: 30 2RF Referrals Referrals: Sherwin Obrien MD [Primary Care Provider] -
[2022-04-26] MEDS ORDERED: SODIUM CHLORIDE 0.9% 1000ML 1,000 ML IV ONE (21:04)
[2022-04-26 21:15] LABS: Basophils # (auto) 0.04 K/uL (0-0.2); Basophils % (auto) 0.6 %; Eosinophils % (auto) 1.5 %; Hematocrit (blood only) 26.8 % (34.1-44.9); Hemoglobin 8.7 g/dl (12.0-16.0); Immature Granulocytes # (auto) 0.04 K/uL (0.00-0.02); Immature Granulocytes % (auto) 0.6 %; Lymphocytes # (auto) 1.84 K/uL (1.2-3.4); Lymphocytes % (auto) 27.5 %; Mean Corpuscular Hemoglobin 33.6 pg (25.0-34.0); Mean Corpuscular Hgb Conc 32.5 g/dL (32.0-36.0); Mean Corpuscular Volume 103.5 fL (80.0-100.0); Mean Platelet Volume 9.4 fL (9.4-12.3); Monocytes # (auto) 0.42 K/uL (0.24-0.82); Monocytes % (auto) 6.3 %; Neutrophils # (auto) 4.25 K/uL (1.4-6.5); Neutrophils % (auto) 63.5 %; Platelet Count 278 K/uL (130-400); RDW Coefficient of Variation 15.5 % (11.5-14.5); RDW Standard Deviation 58.1 fL (36.4-46.3); Red Blood Count 2.59 M/uL (3.93-5.22); White Blood Count 6.69 K/ul (4.8-10.8)
[2022-04-26 21:17] LABS: Albumin Globulin Ratio 1.4 (0.9-2); Albumin Level 4.1 gm/dl (3.4-5.0); BUN Creatinine Ratio 18.8 (10-20); Bilirubin,Total 0.3 mg/dl (0.2-1.0); Calcium 10.9 mg/dl (8.5-10.1); Creatinine Clr Calc Pharmacy 20.1 ml/min; Est GFR (African American) 22.8 ml/min; Est GFR (Non-African American) 19.7 ml/min; Globulin 2.9 gm/dl (2.5-4.0); Potassium 4.7 mmol/L (3.5-5.1)
[2022-04-26 22:32] LABS: Appearance Urine Clear (Clear); Bacteria Urine Automated Negative (Negative); Bilirubin Urine Negative (Negative); Blood Urine Trace (Negative); Color Urine Yellow; Epithelial Cell Urine Auto >30 /lpf (0-5); Glucose Urine UA Negative (Negative); Ketones Urine Negative (Negative); Leukocyte Esterase Urine Trace (Negative); Nitrite Urine Negative (Negative); Protein Urine 2+ (Negative); RBC Urine Automated 0-4 /hpf (0-4); Specific Gravity Urine 1.022 (1.000-1.030); Urobilinogen Urine Negative (Negative)
[2022-04-27] MEDS ORDERED: oxyCODONE HCL IR 5 MG TAB (IMMEDIATE RELEASE) PO STA (01:30)
[2022-04-27] MEDS ORDERED: CYCLOBENZAPRINE HCL 5 MG TAB PO PRN (03:24)
[2022-04-27] MEDS ORDERED: oxyCODONE HCL IR 5 MG TAB (IMMEDIATE RELEASE) PO PRN ×2 (03:24→21:23)
[2022-04-27] MEDS: SODIUM CHLORIDE 0.45 % 1,000 ML IV SCH ×2 (04:05→13:13)
[2022-04-27 07:41] LABS: Basophils # (auto) 0.02 K/uL (0-0.2); Basophils % (auto) 0.3 %; Eosinophils # (auto) 0.08 K/uL (0-0.50); Eosinophils % (auto) 1.3 %; Hemoglobin 7.1 g/dl (12.0-16.0); Immature Granulocytes # (auto) 0.03 K/uL (0.00-0.02); Immature Granulocytes % (auto) 0.5 %; Lymphocytes # (auto) 1.16 K/uL (1.2-3.4); Lymphocytes % (auto) 19.5 %; Mean Corpuscular Hemoglobin 33.6 pg (25.0-34.0); Mean Corpuscular Hgb Conc 32.3 g/dL (32.0-36.0); Mean Corpuscular Volume 104.3 fL (80.0-100.0); Mean Platelet Volume 9.4 fL (9.4-12.3); Monocytes # (auto) 0.34 K/uL (0.24-0.82); Monocytes % (auto) 5.7 %; Neutrophils # (auto) 4.31 K/uL (1.4-6.5); Neutrophils % (auto) 72.7 %; Platelet Count 231 K/uL (130-400); RDW Coefficient of Variation 15.2 % (11.5-14.5); RDW Standard Deviation 58.1 fL (36.4-46.3); Red Blood Count 2.11 M/uL (3.93-5.22); White Blood Count 5.94 K/ul (4.8-10.8)
--- NOTE | 2022-04-27 07:54 | History and Physical Report ---
DATE OF ADMISSION: 04/27/2022. CHIEF COMPLAINT: Acute kidney injury. HISTORY OF PRESENT ILLNESS: A 71-year-old female with past medical history significant for prediabetes, multiple lung nodules on CT scan, hypertension, obesity, GERD, irritable bowel syndrome, compression fracture of L4 vertebra, rosacea, osteoarthritis, restless legs syndrome, dystonia, history of left breast cancer and presents with abnormal labs outpatient for ANDRADE. The patient was treated for UTI in November and also recently with Bactrim and also she was taking ibuprofen for her shoulder pains, last dose was today morning and last week outpatient labs done showed worsening kidney function, so she was referred here. Here, her creatinine was 2.4. Currently, resting comfortably, hemodynamically stable. Complains of shoulder pain that is going on for some time, following with orthopedics and also rheumatology. There is a question of gout .Also complains of back pain. Asked for pain medication. Denies any headache. The patient has some blurred visions. No runny nose, no sore throat, no chest pain, no shortness of breath. Has some nausea and abdominal pain. Resting comfortably. ALLERGIES: BEE VENOM, CLOBETASOL. PAST MEDICAL HISTORY: As mentioned above. PAST SURGICAL HISTORY: Breast reduction surgery; bronchoscopy; axillary lymph node biopsy, left side; colonoscopy; laparoscopic cholecystectomy; ligation of oviducts; bilateral simple mastectomy. MEDICATIONS: The patient is on colchicine 0.6 mg p.o. b.i.d., vitamin B12 100 mcg p.o. daily, cyclobenzaprine 5 mg p.o. p.r.n., gabapentin 200 mg p.o. t.i.d. FAMILY HISTORY: Significant for daughter has breast cancer; maternal cousin, breast cancer; brother has cancer; father has heart disorder; mother has heart disorder; brother has heart attack. SOCIAL HISTORY: , no smoking, alcohol rare, no drug use. REVIEW OF SYSTEMS: As per HPI. Rest of the review of systems is negative. PHYSICAL EXAMINATION: GENERAL: The patient is of moderate build, not in acute distress. VITAL SIGNS: Temperature 36.9, pulse 77, respiratory rate 18, blood pressure 130/83, and oxygen 97% on room air. HEENT: Pupils equal, round, and reactive to light. Oral mucosa moist. NECK: No JVD. No neck masses. CARDIOVASCULAR: S1 and S2 heard. Regular rate and rhythm. No murmur, no gallop. RESPIRATORY SYSTEM: Normal AP diameter. No accessory muscle use. No wheezing, no crackles. ABDOMEN: Soft, bowel sounds present, nontender, no distention. CENTRAL NERVOUS SYSTEM: Cranial nerves II-XII grossly intact, nonfocal. EXTREMITIES: No edema, no erythema. LABORATORY DATA: WBC 6.6, hemoglobin 8.7, hematocrit 26.8, platelets 278. Sodium 137, potassium 4.7, chloride 105, bicarbonate 22, BUN 45, creatinine 2.4, serum glucose 109, calcium 10.9, total bilirubin 0.3, AST 25, ALT 12, alkaline phosphatase 127. Total creatinine kinase 44. Urinalysis: Trace leukocyte esterase, bacteria negative. IMAGING DATA: Chest x-ray: Bibasilar opacities seen. EKG: Normal sinus rhythm at 78, no significant change was found. ASSESSMENT AND PLAN: This is a 71-year-old female who presents with acute kidney injury. 1. Acute kidney injury: The patient was recently started on Bactrim and she was taking Advil, could be cause of renal dysfunction. Her creatinine was 0.8 in November. Avoid nephrotoxic agents. Getting fluids. Follow the repeat labs in the a.m. If not getting better, may get imaging studies and also nephro consult. 2. 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 placed her on Tylenol p.r.n., oxycodone p.r.n. followup with orthopedics and rheumatology. 3. Prediabetes: Will follow HbA1c level. Placed on diabetic diet. 4. Multiple lung nodules: The patient is supposed to get bronchoscopy coming Tuesday at [facility]. 5. Hypertension: Not on any medications, will monitor. 6. Anemia: Hemoglobin of 8.7. Her hemoglobin has been 8.4 and 9.5 recently. Will check stool for Hemoccult, will check iron studies, vitamin B12, and folate levels. Needs followup. 7. Deep venous thrombosis prophylaxis: Sequential compression devices for now. DISPOSITION: Closely monitor in the medical floor. PT/OT prior to discharge. Social service to help with discharge planning. Job ID: [id number] [facility], [place]
[2022-04-27 08:03] LABS: BUN Creatinine Ratio 18.8 (10-20); Est GFR (African American) 25.6 ml/min; Est GFR (Non-African American) 22.1 ml/min; Potassium 4.1 mmol/L (3.5-5.1)
[2022-04-27 08:06] LABS: Ovalocytes 1+; Tear Drop Cells 1+
--- NOTE | 2022-04-27 08:06 | XRay Report ---
XR chest 1V portable CLINICAL HISTORY: nodules in lungs TECHNIQUE: Single frontal radiograph of the chest was obtained. Comparison: Comparison is made to chest radiograph 06/10/[address] chest 12/05/2021 FINDINGS: No lines and tubes are seen. Cardiomegaly is noted. There is prominence and cephalization of the vasc ulature with Joey B lines seen. Bilateral airspace opacities are seen in the lower lobes. No eviden ce of pleural effusion or pneumothorax. IMPRESSION: Moderate pulmonary edema. Bilateral airspace opacities which may represent atelectasis, pneumonia, an d/or aspiration. Previously noted nodules are better evaluated by CT. ACT 112: Negative or not required by law. Electronically signed by: Taye Miller M.D. 04/27/2022 8:04 AM
[2022-04-27 08:08] LABS: Iron 85 mcg/dl (35-150); Total Iron Binding Cap Calc 246 mcg/dl (250-450); Transferrin (FE) Percent Satur 35 % (15-50); Unsaturated Iron Binding Cap 161 mcg/dl (155-355)
[2022-04-27 08:23] LABS: Estimated Average Glucose 117 mg/dl; Hemoglobin A1C 5.7 % (4.5-5.6)
[2022-04-27 08:25] LABS: Folate (Folic Acid) 5.42 ng/ml (>5.38)
[2022-04-27] MEDS: GABAPENTIN 100 MG CAP PO SCH ×3 (08:44→19:58)
[2022-04-27] MEDS ORDERED: CYANOCOBALAMIN (B-12) 100 MCG TABLET PO SCH (09:00)
[2022-04-27] MEDS ORDERED: CYANOCOBALAMIN 1000 MCG/ML VIAL IM SCH (10:45)
[2022-04-27] MEDS: THIAMINE HCL 100 MG in SYRINGE 9 ML IV SCH (11:19)
[2022-04-27] MEDS: FOLIC ACID 1 MG in SYRINGE 9.8 ML IV SCH (11:19)
[2022-04-27 14:09] LABS: Hematocrit (blood only) 22.2 % (34.1-44.9); Hemoglobin 7.3 g/dl (12.0-16.0)
[2022-04-27] MEDS ORDERED: traMADol HCL 50 MG TABLET PO PRN (20:59)
--- NOTE | 2022-04-27 21:03 | Hospitalist Progress Note ---
Date of Service April 27, 2022 Assessment & Plan Admission and Anticipated Discharge Date Admission Date: April 27, 2022 Subjective Patient admitted with ANDRADE, after being treated with Bactrim for UTI. Creatinine improved with IV fluids. Currently patient is laying in bed in no acute distress. Patient's daughter at the bedside. Patient is awake, able to answer simple questions appropriately. And in no distress. Had some nausea after receiving oxycodone in the ED. Continues to have chronic shoulder pain, will place lidocaine patch. We can try small dose tramadol in addition to Tylenol. Patient has also history of macrocytic anemia, reports following with Dr. Vaughn. Was supposed to be on B12 supplement, however stopped taking it sometime ago. Will provide IM injection for B12, IV folic acid as well. Continue to closely monitor H&H. Monitor renal function. MD David Results & Data Results & Data ([facility]) Vital Signs (Past 12 Hours) Vital Signs Temp Pulse Resp BP Pulse Ox O2 Del Method 04/27/22 14:52 36.8 C 69 17 119/72 98 Room Air
[2022-04-27] MEDS: ACETAMINOPHEN 325 MG TAB PO PRN (22:05)
[2022-04-28] MEDS: ACETAMINOPHEN 325 MG TAB PO PRN (04:17)
--- NOTE | 2022-04-28 05:52 | Electrocardiogram Report ---
Test Reason : Blood Pressure : / mmHG Vent. Rate : 078 BPM Atrial Rate : 078 BPM P-R Int : 138 ms QRS Dur : 074 ms QT Int : 354 ms P-R-T Axes : 059 059 061 degrees QTc Int : 403 ms Normal sinus rhythm Nonspecific T wave abnormality When compared with ECG of 10-JUN-2016 15:28, No significant change was found Confirmed by Tano Palmer ([id number]) on 04/28/2022 5:51:25 AM Referred By: REFERRED SELF Confirmed By:Tano Palmer
[2022-04-28 06:36] LABS: Calcium 10.1 mg/dl (8.5-10.1); Creatinine Clr Calc Pharmacy 21.4 ml/min; Est GFR (African American) 24.8 ml/min; Est GFR (Non-African American) 21.4 ml/min; Magnesium 1.9 mg/dl (1.7-2.4); Phosphorus 4.5 mg/dl (2.5-4.9)
[2022-04-28 06:41] LABS: Hematocrit (blood only) 21.7 % (34.1-44.9); Hemoglobin 6.9 g/dl (12.0-16.0)
[2022-04-28] MEDS: GABAPENTIN 100 MG CAP PO SCH ×3 (08:22→20:40)
[2022-04-28] MEDS: FOLIC ACID 1 MG in SYRINGE 9.8 ML IV SCH (08:22)
[2022-04-28] MEDS: THIAMINE HCL 100 MG in SYRINGE 9 ML IV SCH (08:22)
[2022-04-28] MEDS ORDERED: ERGOCALCIFEROL 50,000 UNITS 1250 MCG CAP PO SCH (09:00)
[2022-04-28] MEDS ORDERED: LIDOCAINE 5% 1 PATCH TD SCH (09:00)
[2022-04-28] MEDS: CYANOCOBALAMIN (B-12) 500 MCG TABLET PO SCH (10:21)
--- NOTE | 2022-04-28 12:27 | Consultation Report ---
NEPHROLOGY CONSULTATION NOTE DATE OF SERVICE: 04/28/2022. REASON FOR CONSULTATION: Acute renal failure. HISTORY OF PRESENT ILLNESS: The patient is a 71-year-old female who was sent over because of abnorma l outpatient labs for acute renal failure. She has been in the hospital for 2 days now. At baseline , she has normal kidney function. She was not really having a lot of symptoms prior to hospitalizati on. A few days prior to admission, she did have a urinary tract infection and was prescribed Bactrim. The last dose of that was about 6 days ago. She was also having some issues with pain and for whic h she was taking ibuprofen as well as gabapentin. She denied having any nausea, vomiting, diarrhea, fever, chills or really any other symptoms. Not having any urinary complaints at the time of admissi on. She did have hospital admission back in November and December for UTI with pyelonephritis. At this ti me, she denies having any symptoms. She does have chronic anemia, which seems to have got worse and this morning hemoglobin is down to 6.9. On admission, it was 8.7. Her creatinine was 2.40. At the t tatiana of admission, this morning it is 2.24. Electrolytes are otherwise normal. Urine and blood cultu res negative. Urine sediment does show protein, some blood and lots of epithelial cells as well as h yaline cast. Chest x-ray showed pulmonary edema. She received about 2 liters of fluid, but currentl y not getting any fluid. Denies any shortness of breath. ALLERGIES: BEE VENOM AND CLOBETASOL. PAST MEDICAL HISTORY: Includes prediabetes, multiple lung nodules on CT scan, hypertension, obesity, GERD, irritable bowel syndrome, history of compression fracture, rosacea, osteoarthritis, restless l egs syndrome, history of left breast cancer. PAST SURGICAL HISTORY: Breast reduction surgery, bronchoscopy, axillary lymph node biopsy, colonosco py, laparoscopic cholecystectomy, ligation of oviducts, bilateral simple mastectomy. MEDICATIONS: At home includes vitamin B12, cyclobenzaprine and gabapentin. She was prescribed colch icine, but she has not started it. Was taking ibuprofen also as needed. Denies any herbal medicines or supplements. FAMILY HISTORY: Significant for daughter with breast cancer. No renal disease or dialysis in the [facility]. SOCIAL HISTORY: . No smoking, no alcohol, no drugs. REVIEW OF SYSTEMS: As per HPI. Twelve systems reviewed and was essentially negative. PHYSICAL EXAMINATION: GENERAL: Elderly white female who is of moderate build. She is not in any respiratory distress. Crow escobedo was able to give detailed account of her medical history. Normal speech. VITAL SIGNS: Blood pressure 137/79, pulse rate 75, respiratory rate 16, temperature 36.6, 98% on lisa m air. HEENT: Mucous membrane is moist. NECK: Supple. No jugular venous distention. CHEST: Bilaterally clear to auscultation. CARDIOVASCULAR: S1 and S2, regular. ABDOMEN: Soft, nontender. EXTREMITIES: Show no edema. NEUROLOGIC: Awake, alert, oriented x3, normal speech. Moving all 4 extremities. LABORATORY TEST: From this morning shows a hemoglobin of 6.9, which is significantly lower compared to 8.7 on admission. Chest x-ray showed moderate pulmonary edema. Renal panel showed a creatinine of 2.4 on admission 2 days ago. This morning, creatinine is 2.24, BUN is 38. Electrolytes otherwise n ormal. Urine shows 2+ protein, trace blood, lots of epithelial cells and hyaline cast. ASSESSMENT AND PLAN: A 71-year-old female admitted with acute renal failure. I have been consulted for this. Acute renal failure: At baseline, she has normal kidney function and at the time of admission, she h ad a creatinine of 2.4, which does qualify as acute renal failure. However, for the last 2 days, cre atinine has been trending down, but slowly. She was taking ibuprofen as well as Bactrim prior to hos pitalization and both of these drugs can be associated with acute renal failure. Urine sediment was quite active, so there is a possibility she may have had some degree of acute tubular necrosis, but t his is not a severe type of acute tubular necrosis as creatinine has been trending down slowly. RECOMMENDATION: 1. Ultrasound of the kidney and bladder. 2. Echocardiogram given finding of moderate pulmonary edema. She has no prior cardiac history and o n exam does not really appear to be fluid overloaded. 3. Avoid Bactrim, NSAIDs, contrast agents or any nephrotoxic drugs. 4. Renal panel daily. 5. Repeat UA and urine protein to creatinine ratio. I will continue to follow the patient. Thank you very much for the consult. Job ID: [id number]
--- NOTE | 2022-04-28 12:53 | Ultrasound Report ---
US renal/blad retro comp CLINICAL HISTORY: ARF. COMPARISON: None. TECHNIQUE: Multiple grayscale and color images of the kidneys and bladder. FINDINGS: Right kidney: The kidney is normal in size and echogenicity. There is no evidence for renal calculus or hydronephrosis. There is no evidence for solid renal mass. There is no evidence for medical renal disease. The kidney measures 10.4 cm in greatest length Left kidney: The kidney is normal in size and echogenicity. There is no evidence for renal calculus o r hydronephrosis. There is a small, sharply defined simple exophytic cyst measuring 2.7 cm. No furthe r follow-up is necessary for this benign finding. There is no evidence for solid renal mass. There is no evidence for medical renal disease. The kidney measures 10.9 cm in greatest length. Bladder: Limited images of the bladder demonstrate no gross abnormality. There are bilateral ureteral jets. IMPRESSION: 1. Essentially negative renal ultrasound. ACT 112: Negative or not required by law. Electronically signed by: Stanford Recio M.D. 04/28/2022 12:51 PM
[2022-04-28 13:03] LABS: Creatinine Urine Random 38.6 mg/dl; Protein Creatinine Ratio Urine 7.9 (0-0.2); Total Protein Urine Random 305.6 mg/dl (0-11.9)
[2022-04-28 13:06] LABS: Basophils # (auto) 0.02 K/uL (0-0.2); Basophils % (auto) 0.4 %; Eosinophils # (auto) 0.09 K/uL (0-0.50); Eosinophils % (auto) 1.8 %; Immature Granulocytes # (auto) 0.01 K/uL (0.00-0.02); Immature Granulocytes % (auto) 0.2 %; Lymphocytes # (auto) 1.52 K/uL (1.2-3.4); Lymphocytes % (auto) 29.8 %; Mean Corpuscular Hemoglobin 32.7 pg (25.0-34.0); Mean Platelet Volume 9.2 fL (9.4-12.3); Monocytes # (auto) 0.35 K/uL (0.24-0.82); Monocytes % (auto) 6.9 %; Neutrophils # (auto) 3.11 K/uL (1.4-6.5); Neutrophils % (auto) 60.9 %; Platelet Count 244 K/uL (130-400); RDW Coefficient of Variation 15.5 % (11.5-14.5); RDW Standard Deviation 60.4 fL (36.4-46.3); Red Blood Count 2.11 M/uL (3.93-5.22)
[2022-04-28 13:39] LABS: Ovalocytes 1+; Polychromasia 1+; Tear Drop Cells 1+
[2022-04-28 14:05] LABS: Mean Corpuscular Hgb Conc 31.8 g/dL (32.0-36.0); Mean Corpuscular Volume 104.3 fL (80.0-100.0)
[2022-04-28] MEDS ORDERED: FUROSEMIDE 40 MG/4 ML VIAL IV ONE (14:33)
[2022-04-28] MEDS ORDERED: SODIUM CHLORIDE 0.9% 250 ML IV PRN (14:33)
[2022-04-28] MEDS ORDERED: diphenhydrAMINE Capsule 25 MG CAP PO ONE (14:33)
--- NOTE | 2022-04-28 14:39 | Hospitalist Progress Note ---
Date of Service April 28, 2022 Assessment & Plan (1) Acute renal failure (ARF): Plan: Recent Bactrim and Ibuprofen use as outpatient. Nephro consulted and performing workup. Appreciate recommendations. Cont to avoid NSAIDs or contrast. No Lasix unless respiratory distress. Daily BMP. (2) Medication side effect: Plan: ARF after Bactrim use. (3) History of breast cancer: Plan: per oncology. (4) Closed compression fracture of L4 vertebra: Plan: Osteoporotic related compression fractions nontraumatic in nature. 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 Giving the multiple compression fracture she would benefit from an anabolic agent like Tymlos or Forteo first. We will follow-up with rheumatology after this admission. (5) Right shoulder pain: Plan: Nonspecific inflammatory arthritis, less likely gout however colchicine was empirically given. Patient prefers not to start this until she is sure she has gout. She has no other history of red hot swollen joints in the past and no history of gout that she is aware of. Hold colchicine (6) Vitamin D deficiency: Plan: 25 hydroxy level level was 8 in the outpatient setting. PTH also inappropriately low and calcium was elevated at 11, more normal today. Possibly related to dehydration. Start ergocalciferol for vitamin D replacement. Follow-up with rheumatology. (7) Macrocytic anemia: Plan: Progressive anemia monitored by hematology. Patient underwent colonoscopy in February 2022 with single tubular adenoma found and resected. She has internal hemorrhoids and reports external hemorrhoids with no evidence of bleeding. Transfuse 1 unit of blood now and follow-up with hematology. (8) DVT prophylaxis: Plan: SCDs, ambulation-chemoprophylaxis contraindicated in setting of anemia requiring transfusion Full code Disposition-pending resolution of acute renal failure. Courtney Pearson DO [facility] Hospitalist Admission and Anticipated Discharge Date Admission Date: April 27, 2022 Subjective 71-year-old female admitted with acute renal failure with a creatinine of 2 and normal baseline after use of Bactrim and evidence of dehydration on recent lab work. Creatinine has trended daily 2.4-> 2.18-> 2.24 today She is eating and drinking well. Hb is now 6/9 and she is dizzy with standing and weak and fatigued. She is reporting right shoulder pain for which she went to see Rheumatology. She has been taking Ibuprofen and Bactrim at home prior to arrival. Echo performed today reveals normal EF with Grade II diastolic dysfunction. She is not acutely overloaded. Although initially ordered post-transfusion (pRBC) lasix, will hold off unless there is respiratory distress. She agrees to Tylenol for her shoulder. She thought the Tylenol caused RLS, but we discussed that anemia can also cause restless legs. Review of Systems Review of Systems: All systems were reviewed and negative except as indicated above. Physical Exam Physical Exam: CONSTITUTIONAL: WNWD, vitals as above, generally well- appearing EYES: normal conjunctivae, no scleral icterus ENT: external ear and nose normal, MMM, rosacea appearance to malar area on face. NECK: trachea midline RESPIRATORY: clear to auscultation bilaterally, no crackles, rales or wheezes, normal respiratory effort CARDIOVASCULAR: regular rate and rhythm, S1 and 2 heard without murmurs, gallops or rubs, no JVD, no peripheral edema CHEST: inspection of chest was normal GASTROINTESTINAL: soft, nontender, ND, no guarding MUSCULOSKELETAL: strength 5/5 throughout, head is normocephalic and atraumatic SKIN: warm and dry, no rashes NEUROLOGIC: CN 2-12 grossly intact, no sensory deficit, normal cognition, normal speech, no tremor PSYCHIATRIC: alert cooperative and oriented to person, place and time. Euthymic mood, makes good eye contact, language grossly intact, recent and re mote memory grossly intact. Results & Data Results & Data ([facility]) Vital Signs (Past 12 Hours) Vital Signs Temp Pulse Resp BP Pulse Ox O2 Del Method 04/28/22 08:28 Room Air 04/28/22 05:53 36.6 C 75 16 137/79 98 Room Air Laboratory Results Short CBC 04/28/22 04/28/22 Range/Units 05:42 05:42 WBC 5.10 Cancelled (4.8-10.8) K/ul Hgb 6.9 L* Cancelled (12.0-16.0) g/dl Hct 21.7 L Cancelled (34.1-44.9) % Plt Count 244 Cancelled (130-400) K/uL BMP 04/28/22 05:42 Sodium 137 Potassium 4.0 Chloride 107 Carbon Dioxide 23 BUN 38 H Creatinine 2.24 H Glucose 91 Calcium 10.1 Diagnostic Findings Renal Ultrasound 04/28/22 10:10 US renal/blad retro comp CLINICAL HISTORY: ARF. COMPARISON: None. TECHNIQUE: Multiple grayscale and color images of the kidneys and bladder. FINDINGS: Right kidney: The kidney is normal in size and echogenicity. There is no evidence for renal calculus or hydronephrosis. There is no evidence for solid renal mass. There is no evidence for medical renal disease. The kidney measures 10.4 cm in greatest length Left kidney: The kidney is normal in size and echogenicity. There is no evidence for renal calculus or hydronephrosis. There is a small, sharply defined simple exophytic cyst measuring 2.7 cm. No further follow-up is necessary for this benign finding. There is no evidence for solid renal mass. There is no evidence for medical renal disease. The kidney measures 10.9 cm in greatest length. Bladder: Limited images of the bladder demonstrate no gross abnormality. There are bilateral ureteral jets. IMPRESSION: 1. Essentially negative renal ultrasound. ACT 112: Negative or not required by law. Electronically signed by: Stanford Recio M.D. 04/28/2022 12:51 PM Medications Administered Current Inpatient Medications Acetaminophen (Acetaminophen 500 Mg Tab) 1,000 mg PO Q8H DEANDRA Stop: 05/28/22 14:44 Cyanocobalamin (Cyanocobalamin (B-12) 500 Mcg Tablet) 500 mcg PO QAM DEANDRA Stop: 05/28/22 08:59 Last Admin: 04/28/22 10:21 Dose: 500 mcg Cyclobenzaprine HCl (Cyclobenzaprine Hcl 5 Mg Tab) 5 mg PO ONE PRN PRN Reason: Muscle spasm Diphenhydramine HCl (Diphenhydramine Capsule 25 Mg Cap) 25 mg PO PRE-TREAT ONE Stop: 04/28/22 22:33 Ergocalciferol (Ergocalciferol 50,000 Units 1250 Mcg Cap) 50,000 units PO Q7D@0900 DEANDRA Stop: 05/28/22 08:59 Last Admin: 04/28/22 10:21 Dose: 50,000 units Folic Acid (Folic Acid 1 Mg Tab) 1 mg PO QAM DEANDRA Stop: 05/29/22 08:59 Furosemide (Furosemide 40 Mg/4 Ml Vial) 20 mg IV UD ONE Stop: 04/28/22 14:34 Gabapentin (Gabapentin 100 Mg Cap) 200 mg PO TID [facility] Stop: 05/27/22 08:59 Last Admin: 04/28/22 13:36 Dose: 200 mg Sodium Chloride (Nss) 250 mls @ 15 mls/hr IV .[id number] PRN PRN Reason: For Transfusion Stop: 04/29/22 00:34 Oxycodone HCl (Oxycodone Hcl Ir 5 Mg Tab (Immediate Release)) 5 mg PO Q6H PRN PRN Reason: Severe Pain 7,8,9,10 Stop: 05/11/22 03:23 Thiamine HCl (Thiamine Hcl 100 Mg Tab) 100 mg PO QAM [facility] Stop: 05/29/22 08:59 Tramadol HCl (Tramadol Hcl 50 Mg Tablet) 25 mg PO Q4H PRN PRN Reason: Moderate Pain 4,5,6 Stop: 05/27/22 20:58 (1) Closed compression fracture of L4 vertebra Encounter type: initial encounter Qualified Code(s): S32.040A - Wedge compression fracture of fourth lumbar vertebra, initial encounter for closed fracture
[2022-04-28] MEDS: ACETAMINOPHEN 500 MG TAB PO SCH ×2 (16:32→23:43)
[2022-04-28] MEDS ORDERED: Nursing to Pharmacy Communication SCH (19:45)
[2022-04-28] MEDS ORDERED: FUROSEMIDE 40 MG/4 ML VIAL IV SCH (20:00)
[2022-04-29] MEDS: ACETAMINOPHEN 500 MG TAB PO SCH ×3 (05:24→20:04)
[2022-04-29 06:52] LABS: BUN Creatinine Ratio 17.1 (10-20); Calcium 10.9 mg/dl (8.5-10.1); Creatinine Clr Calc Pharmacy 21.6 ml/min; Est GFR (Non-African American) 21.6 ml/min; Potassium 3.8 mmol/L (3.5-5.1)
[2022-04-29] MEDS: FOLIC ACID 1 MG TAB PO SCH (08:51)
[2022-04-29] MEDS: CYANOCOBALAMIN (B-12) 500 MCG TABLET PO SCH (08:52)
[2022-04-29] MEDS: GABAPENTIN 100 MG CAP PO SCH ×3 (08:53→20:05)
--- NOTE | 2022-04-29 08:53 | Nephrology Progress Note ---
Date of Service April 29, 2022 Assessment & Plan Admission and Anticipated Discharge Date Admission Date: April 27, 2022 Subjective S---making urine. NO active Symptoms. Low HGB and got PRBC yesterday. PHYSICAL EXAMINATION: GENERAL: Elderly white female who is of moderate build. She is not in any respiratory distress. She was able to give detailed account of her medical history. Normal speech. HEENT: Mucous membrane is moist. NECK: Supple. No jugular venous distention. CHEST: Bilaterally clear to auscultation. CARDIOVASCULAR: S1 and S2, regular. ABDOMEN: Soft, nontender. EXTREMITIES: Show no edema. NEUROLOGIC: Awake, alert, oriented x3, normal speech. Moving all 4 extremities. LABORATORY TEST: Creat about same for 2 days now. High grade proteinuria--7 by ratio. ASSESSMENT AND PLAN: A 71-year-old female admitted with acute renal failure. I have been consulted for this. Acute renal failure: At baseline, she has normal kidney function and at the time of admission, she had a creatinine of 2.4, which does qualify as acute renal failure. However, for the last 2 days, creatinine has been trending down, but slowly. She was taking ibuprofen as well as Bactrim prior to hospi talization and both of these drugs can be associated with acute renal failure. Urine sediment was quite active, so there is a possibility she may have had some degree of acute tubular necrosis, but this is not a severe type of acute tubular necrosis as creatinine has been trending down slowly. RECOMMENDATION: 1. Ultrasound of the kidney and bladder--done and normal. 2. Echocardiogram given finding of moderate pulmonary edema--Some LVH and diastolic otherwise normal. 3. Avoid Bactrim, NSAIDs, contrast agents or any nephrotoxic drugs. 4. Renal panel daily. 5. Check serum and urine immuofixation given Anemia, ARF and proteinuria. but given normal Alb low likelihood. 6 Check 24 hr urine protein also. Results & Data ([facility]) Vital Signs (Past 12 Hours) Vital Signs Temp Pulse Resp BP Pulse Ox O2 Del Method 04/29/22 08:21 36.6 C 67 16 135/79 98 Room Air 04/28/22 21:34 36.6 C 70 16 132/72 96
[2022-04-29] MEDS: THIAMINE HCL 100 MG TAB PO SCH (10:00)
[2022-04-29 10:25] LABS: Hematocrit (blood only) 28.2 % (34.1-44.9); Hemoglobin 9.2 g/dl (12.0-16.0); Mean Corpuscular Hemoglobin 32.6 pg (25.0-34.0); Mean Corpuscular Hgb Conc 32.6 g/dL (32.0-36.0); Mean Platelet Volume 9.2 fL (9.4-12.3); Platelet Count 232 K/uL (130-400); RDW Coefficient of Variation 17.2 % (11.5-14.5); RDW Standard Deviation 63.5 fL (36.4-46.3); Red Blood Count 2.82 M/uL (3.93-5.22); White Blood Count 6.11 K/ul (4.8-10.8)
--- NOTE | 2022-04-29 22:24 | Hospitalist Progress Note ---
Date of Service April 29, 2022 Assessment & Plan (1) Acute renal failure (ARF): Plan: Recent Bactrim and Ibuprofen use as outpatient. Nephro consulted and performing workup. Appreciate recommendations. Cont to avoid NSAIDs or contrast. No Lasix unless respiratory distress. Daily BMP. (2) Medication side effect: Plan: ARF after Bactrim use. (3) History of breast cancer: Plan: per oncology. (4) Closed compression fracture of L4 vertebra: Plan: Osteoporotic related compression fractions nontraumatic in nature. 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 Giving the multiple compression fracture she would benefit from an anabolic agent like Tymlos or Forteo first. We will follow-up with rheumatology after this admission. (5) Right shoulder pain: Plan: Nonspecific inflammatory arthritis, less likely gout however colchicine was empirically given. Patient prefers not to start this until she is sure she has gout. She has no other history of red hot swollen joints in the past and no history of gout that she is aware of. Hold colchicine. Worsening and reports pain in left shoulder too. Consider PMR. ESR/CRP in am. Consider short trial of low dose prednisone. (6) Vitamin D deficiency: Plan: 25 hydroxy level level was 8 in the outpatient setting. PTH also inappropriately low and calcium was elevated at 11, more normal today. Possibly related to dehydration. Start ergocalciferol for vitamin D replacement. Follow-up with rheumatology. (7) Macrocytic anemia: Plan: Progressive anemia monitored by hematology. Patient underwent colonoscopy in February 2022 with single tubular adenoma found and resected. She has internal hemorrhoids and reports external hemorrhoids with no evidence of bleeding. Transfuse 1 unit of blood now and follow-up with hematology. (8) DVT prophylaxis: Plan: SCDs, ambulation-chemoprophylaxis contraindicated in setting of anemia requiring transfusion Full code Disposition-pending resolution of acute renal failure. Courtney Pearson DO [facility] Hospitalist Admission and Anticipated Discharge Date Admission Date: April 27, 2022 Subjective 71-year-old female admitted with acute renal failure with a creatinine of 2 and normal baseline after use of Bactrim and evidence of dehydration on recent lab work. Creat again stable around 2 She is eating and drinking well. No significant changes with the blood Worsening right sided shoulder pain Review of Systems Review of Systems: All systems were reviewed and negative except as indicated above. Physical Exam Physical Exam: CONSTITUTIONAL: WNWD, vitals as above, generally well- appearing EYES: normal conjunctivae, no scleral icterus ENT: external ear and nose normal, MMM, rosacea appearance to malar area on face. NECK: trachea midline RESPIRATORY: clear to auscultation bilaterally, no crackles, rales or wheezes, normal respiratory effort CARDIOVASCULAR: regular rate and rhythm, S1 and 2 heard without murmurs, gallops or rubs, no JVD, no peripheral edema CHEST: inspection of chest was normal GASTROINTESTINAL: soft, nontender, ND, no guarding MUSCULOSKELETAL: strength 5/5 throughout except she had difficulty lifting her right arm in any direction because of pain/stiffness in the right shoulder. head is normocephalic and atraumatic SKIN: warm and dry, no rashes NEUROLOGIC: CN 2-12 grossly intact, no sensory deficit, normal cognition, normal speech, no tremor PSYCHIATRIC: alert cooperative and oriented to person, place and time. Euthymic mood, makes good eye contact, language grossly intact, recent and remote memory grossly intact. Results & Data Results & Data ([facility]) Vital Signs (Past 12 Hours) Vital Signs Temp Pulse Resp BP Pulse Ox O2 Del Method 04/29/22 15:34 36.6 C 72 16 117/77 96 Room Air Laboratory Results Short CBC 04/29/22 Range/Units 05:55 WBC 6.11 (4.8-10.8) K/ul Hgb 9.2 L (12.0-16.0) g/dl Hct 28.2 L (34.1-44.9) % Plt Count 232 (130-400) K/uL [facility] 04/29/22 05:52 Sodium 137 Potassium 3.8 Chloride 104 Carbon Dioxide 23 BUN 38 H Creatinine 2.22 H Glucose 88 Calcium 10.9 H Medications Administered Current Inpatient Medications Acetaminophen (Acetaminophen 500 Mg Tab) 1,000 mg PO Q8H DEANDRA Stop: 05/28/22 14:44 Last Admin: 04/29/22 20:04 Dose: 1,000 mg Cyanocobalamin (Cyanocobalamin (B-12) 500 Mcg Tablet) 500 mcg PO QAM [facility]AN[facility] Stop: 05/28/22 08:59 Last Admin: 04/29/22 08:52 Dose: 500 mcg Ergocalciferol (Ergocalciferol 50,000 Units 1250 Mcg Cap) 50,000 units PO Q7D@0900 [facility] Stop: 05/28/22 08:59 Last Admin: 04/28/22 10:21 Dose: 50,000 units Folic Acid (Folic Acid 1 Mg Tab) 1 mg PO QAM [facility] Stop: 05/29/22 08:59 Last Admin: 04/29/22 08:51 Dose: 1 mg Gabapentin (Gabapentin 100 Mg Cap) 200 mg PO TID [facility] Stop: 05/27/22 08:59 Last Admin: 04/29/22 20:05 Dose: 200 mg Thiamine HCl (Thiamine Hcl 100 Mg Tab) [facility] [place] Stop: 05/29/22 08:59 Last Admin: 04/29/22 10:00 Dose: 100 mg Tramadol HCl (Tramadol Hcl 50 Mg Tablet) 25 mg PO Q4H PRN PRN Reason: Moderate Pain 4,5,6 Stop: 05/27/22 20:58 (1) Closed compression fracture of L4 vertebra Encounter type: initial encounter Qualified Code(s): S32.040A - Wedge compression fracture of fourth lumbar vertebra, initial encounter for closed fracture
[2022-04-30] MEDS: ACETAMINOPHEN 500 MG TAB PO SCH ×3 (05:59→21:24)
[2022-04-30 06:27] LABS: BUN Creatinine Ratio 17.6 (10-20); C Reactive Protein 0.89 mg/dl (0-0.5); Calcium 10.8 mg/dl (8.5-10.1); Creatinine Clr Calc Pharmacy 21.7 ml/min; Est GFR (African American) 25.2 ml/min; Est GFR (Non-African American) 21.7 ml/min; Potassium 3.9 mmol/L (3.5-5.1)
[2022-04-30] MEDS: FOLIC ACID 1 MG TAB PO SCH (08:46)
[2022-04-30] MEDS: THIAMINE HCL 100 MG TAB PO SCH (08:46)
[2022-04-30] MEDS: GABAPENTIN 100 MG CAP PO SCH ×3 (08:46→21:24)
[2022-04-30] MEDS: predniSONE 20 MG TAB PO SCH (08:46)
[2022-04-30] MEDS: CYANOCOBALAMIN (B-12) 500 MCG TABLET PO SCH (08:46)
[2022-04-30] MEDS: traMADol HCL 50 MG TABLET PO PRN (12:39)
--- NOTE | 2022-04-30 16:58 | Nephrology Progress Note ---
Date of Service April 30, 2022 Assessment & Plan Admission and Anticipated Discharge Date Admission Date: April 27, 2022 Subjective Subjective S---making urine. NO active Symptoms. Labs about same PHYSICAL EXAMINATION: GENERAL: Elderly white female who is of moderate build. She is not in any respiratory distress. She was able to give detailed account of her medical history. Normal speech. HEENT: Mucous membrane is moist. NECK: Supple. No jugular venous distention. CHEST: Bilaterally clear to auscultation. CARDIOVASCULAR: S1 and S2, regular. ABDOMEN: Soft, nontender. EXTREMITIES: Show no edema. NEUROLOGIC: Awake, alert, oriented x3, normal speech. Moving all 4 extremities. LABORATORY TEST: Creat about same for 3 days now. High grade proteinuria--7 by ratio. ASSESSMENT AND PLAN: A 71-year-old female admitted with acute renal failure. I have been consulted for this. Acute renal failure: At baseline, she has normal kidney function and at the time of admission, she had a creatinine of 2.4, which does qualify as acute renal failure. However, for the last 2 days, creatinine has been trending down, but slowly. She was taking ibuprofen as well as Bactrim prior to hospitalization and both of these drugs can be associated with acute renal failure. Urine sediment was quite active, so there is a possibility she may have had some degree of acute tubular necrosis, but this is not a severe type of acute tubular necrosis as creatinine has been trending down slowly. RECOMMENDATION: 1. Ultrasound of the kidney and bladder--done and normal. 2. Echocardiogram given finding of moderate pulmonary edema--Some LVH and diastolic otherwise normal. 3. Avoid Bactrim, NSAIDs, contrast agents or any nephrotoxic drugs. 4. Renal panel daily.Creat not a whole lot different 5. Check serum and urine immuofixation given Anemia, ARF and proteinuria. All pending. 6 Pending 24 hr urine protein also.On the random has 7.9 by ratio. 7 Already ruled out pre/ post renal cause. Since creat stable in the low 2 with proteinuria she can be discharged and then outpt workup for proteinuria/CKD--may even need renal biopsy if does not get better in the coming days Results & Data ([facility]) Vital Signs (Past 12 Hours) Vital Signs Temp Pulse Resp BP Pulse Ox O2 Del Method 04/30/22 15:17 36.8 C 80 16 117/73 95 Room Air 04/30/22 07:26 36.5 C 59 L 16 115/65 98 Room Air
--- NOTE | 2022-04-30 17:24 | Hospitalist Progress Note ---
Date of Service April 30, 2022 Assessment & Plan (1) Acute renal failure (ARF): Plan: Recent Bactrim and Ibuprofen use as outpatient. Nephro consulted and performing workup. Appreciate recommendations. Cont to avoid NSAIDs or contrast. No Lasix unless respiratory distress. Daily BMP. (2) Medication side effect: Plan: ARF after Bactrim use. (3) History of breast cancer: Plan: per oncology. (4) Closed compression fracture of L4 vertebra: Plan: Osteoporotic related compression fractions nontraumatic in nature. 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 Giving the multiple compression fracture she would benefit from an anabolic agent like Tymlos or Forteo first. We will follow-up with rheumatology after this admission. (5) Hypercalcemia: Plan: Has a recent history of this in outpatient setting. Differential includes but not limited to dehydration (IVF started, ARF), hypercalcemia of malignancy (h/o breast cancer and new, enlarging pulmonary nodules), recent vertebral compression fracture of L4 (alk phos is elevated), immobilization?. IVF started. Repeat PTH, PTHrp, 25OH, Phos, ionized calcium and alb in am. (6) Right shoulder pain: Plan: Nonspecific inflammatory arthritis, less likely gout however colchicine was empirically given. Patient prefers not to start this until she is sure she has gout. She has no other history of red hot swollen joints in the past and no history of gout that she is aware of. Hold colchicine. Consider PMR in differential with mildly elevated inflammatory markers. Started a trial of low dose prednisone. Too early to tell but possibly some improvement. (7) Vitamin D deficiency: Plan: 25 hydroxy level level was 8 in the outpatient setting. PTH also inappropriately low and calcium was elevated at 11, more normal today. Possibly related to dehydration. Start ergocalciferol for vitamin D replacement. Follow-up with rheumatology. (8) Macrocytic anemia: Plan: Progressive anemia monitored by hematology. Patient underwent colonoscopy in February 2022 with single tubular adenoma found and resected. She has internal hemorrhoids and reports external hemorrhoids with no evidence of bleeding. 1 Unit of blood given overnight with appropriate response in H/H (9) DVT prophylaxis: Plan: SCDs, ambulation-chemoprophylaxis contraindicated in setting of anemia requiring transfusion Full code Disposition-pending resolution of acute renal failure. DO Kellee Harrison Hospitalist Admission and Anticipated Discharge Date Admission Date: April 27, 2022 Subjective 71-year-old female admitted with acute renal failure with a creatinine of 2 and normal baseline after use of Bactrim and evidence of dehydration on recent lab work. Creat again stable around 2 She is eating and drinking well. No significant changes with the blood Persistent shoulder and back pain that is slightly better since starting prednisone. Review of Systems Review of Systems: All systems were reviewed and negative except as indicated above. Physical Exam Physical Exam: CONSTITUTIONAL: WNWD, vitals as above, generally well- appearing EYES: normal conjunctivae, no scleral icterus ENT: external ear and nose normal, MMM, rosacea appearance to malar area on face. NECK: trachea midline RESPIRATORY: clear to auscultation bilaterally, no crackles, rales or wheezes, normal respiratory effort CARDIOVASCULAR: regular rate and rhythm, S1 and 2 heard without murmurs, gallops or rubs, no JVD, no peripheral edema CHEST: inspection of chest was normal GASTROINTESTINAL: soft, nontender, ND, no guarding MUSCULOSKELETAL: strength 5/5 throughout, head is normocephalic and atraumatic SKIN: warm and dry, no rashes NEUROLOGIC: CN 2-12 grossly intact, no sensory deficit, normal cognition, normal speech, no tremor PSYCHIATRIC: alert cooperative and oriented to person, place and time. Euthymic mood, makes good eye contact, language grossly intact, recent and remote memory grossly intact. Results & Data Results & Data ([facility]) Vital Signs (Past 12 Hours) Vital Signs Temp Pulse Resp BP Pulse Ox O2 Del Method 04/30/22 15:17 36.8 C 80 16 117/73 95 Room Air 04/30/22 07:26 36.5 C 59 L 16 115/65 98 Room Air Laboratory Results [facility] 04/30/22 05:37 Sodium 135 L Potassium 3.9 Chloride 103 Carbon Dioxide 23 BUN 39 H Creatinine 2.21 H Glucose 93 Calcium 10.8 H Medications Administered Current Inpatient Medications Acetaminophen (Acetaminophen 500 Mg Tab) 1,000 mg PO Q8H DEANDRA Stop: 05/28/22 14:44 Last Admin: 04/30/22 13:58 Dose: 1,000 mg Cyanocobalamin (Cyanocobalamin (B-12) 500 Mcg Tablet) 500 mcg PO QAM DEANDRA Stop: 05/28/22 08:59 Last Admin: 04/30/22 08:46 Dose: 500 mcg Ergocalciferol (Ergocalciferol 50,000 Units 1250 Mcg Cap) 50,000 units PO Q7D@0900 [facility] Stop: 05/28/22 08:59 Last Admin: 04/28/22 10:21 Dose: 50,000 units Folic Acid (Folic Acid 1 Mg Tab) 1 mg PO QAM [facility] Stop: 05/29/22 08:59 Last Admin: 04/30/22 08:46 Dose: 1 mg Gabapentin (Gabapentin 100 Mg Cap) 200 mg PO TID [facility] Stop: 05/27/22 08:59 Last Admin: 04/30/22 13:58 Dose: 200 mg Prednisone (Prednisone 20 Mg Tab) 20 mg PO DAILY [facility] Stop: 05/30/22 08:59 Last Admin: 04/30/22 08:46 Dose: 20 mg Thiamine HCl (Thiamine Hcl 100 Mg Tab) 100 mg PO QAM [facility] Stop: 05/29/22 08:59 Last Admin: 04/30/22 08:46 Dose: 100 mg Tramadol HCl (Tramadol Hcl 50 Mg Tablet) 25 mg PO Q4H PRN PRN Reason: Moderate Pain 4,5,6 Stop: 05/27/22 20:58 Last Admin: 04/30/22 12:39 Dose: 25 mg (1) Closed compression fracture of L4 vertebra Encounter type: initial encounter Qualified Code(s): S32.040A - Wedge compression fracture of fourth lumbar vertebra, initial encounter for closed fracture (2) Acute renal failure (ARF) Acute renal failure type: with acute tubular necrosis Qualified Code(s): N17.0 - Acute kidney failure with tubular necrosis
[2022-04-30 17:45] LABS: Urine Total Protein 296.5 mg/dl
[2022-04-30 18:19] LABS: Total Protein 24 Hour Urine 5855.9 mg/24 Hr (0-149.1)
[2022-05-01] MEDS: ACETAMINOPHEN 500 MG TAB PO SCH (05:50)
[2022-05-01 07:50] LABS: BUN Creatinine Ratio 18.7 (10-20); Calcium 11.1 mg/dl (8.5-10.1); Creatinine Clr Calc Pharmacy 21.9 ml/min; Est GFR (African American) 25.4 ml/min; Potassium 3.9 mmol/L (3.5-5.1)
[2022-05-01] MEDS ORDERED: ACETAMINOPHEN 500 MG TAB PO PRN (08:45)
[2022-05-01] MEDS: CYANOCOBALAMIN (B-12) 500 MCG TABLET PO SCH (08:54)
[2022-05-01] MEDS: FOLIC ACID 1 MG TAB PO SCH (08:54)
[2022-05-01] MEDS: THIAMINE HCL 100 MG TAB PO SCH (08:54)
[2022-05-01] MEDS: GABAPENTIN 100 MG CAP PO SCH ×3 (08:55→20:55)
[2022-05-01] MEDS: predniSONE 20 MG TAB PO SCH (08:55)
[2022-05-01] MEDS: SODIUM CHLORIDE 0.9% 1000ML 1,000 ML IV SCH ×3 (09:36→20:57)
[2022-05-01] MEDS: traMADol HCL 50 MG TABLET PO PRN (09:44)
--- NOTE | 2022-05-01 10:14 | Nephrology Progress Note ---
Date of Service May 01, 2022 Assessment & Plan Admission and Anticipated Discharge Date Admission Date: April 27, 2022 Subjective Subjective S---making urine. No active Symptoms. Labs about same PHYSICAL EXAMINATION: GENERAL: Elderly white female who is of moderate build. She is not in any respiratory distress. She was able to give detailed account of her medical history. Normal speech. HEENT: Mucous membrane is moist. NECK: Supple. No jugular venous distention. CHEST: Bilaterally clear to auscultation. CARDIOVASCULAR: S1 and S2, regular. ABDOMEN: Soft, nontender. EXTREMITIES: Show no edema. NEUROLOGIC: Awake, alert, oriented x3, normal speech. Moving all 4 extremities. LABORATORY TEST: Creat about same for 4 days now. High grade proteinuria--7 by ratio. ASSESSMENT AND PLAN: A 71-year-old female admitted with acute renal failure. I have been consulted for this. Acute renal failure: At baseline, she has normal kidney function and at the time of admission, she had a creatinine of 2.4, which does qualify as acute renal failure. However, for the last 2 days, creatinine has been trending down, but slowly. She was taking ibuprofen as well as Bactrim prior to hospitalization and both of these drugs can be associated with acute renal failure. Urine sediment was quite active, so there is a possibility she may have had some degree of acute tubular necrosis, but this is not a severe type of acute tubular necrosis as creatinine has been trending down slowly. RECOMMENDATION: 1. Ultrasound of the kidney and bladder--done and normal. 2. Echocardiogram given finding of moderate pulmonary edema--Some LVH and diastolic otherwise normal. 3. Avoid Bactrim, NSAIDs, contrast agents or any nephrotoxic drugs. 4. Renal panel daily.Creat not a whole lot different 5. Check serum and urine immunofixation given Anemia, ARF and proteinuria. All pending. 6 Pending 24 hr urine protein also.On the random has 7.9 by ratio. 7 Already ruled out pre/ post renal cause. Since creat stable in the low 2 with proteinuria she can be discharged and then outpt workup for proteinuria/CKD--may even need renal biopsy if does not get better in the coming days.She has sometype of intrinsic renal Disease. Will order ANCA, AZEB, c3,c4, Anti dsDNA repeat UA. Results & Data ([facility]) Vital Signs (Past 12 Hours) Vital Signs Temp Pulse Resp BP Pulse Ox O2 Del Method 05/01/22 07:19 36.4 C L 63 16 130/77 99 Room Air
[2022-05-01] MEDS ORDERED: CYCLOBENZAPRINE HCL 5 MG TAB PO PRN (12:26)
[2022-05-01 15:50] LABS: Appearance Urine Clear (Clear); Bacteria Urine Automated Negative (Negative); Bilirubin Urine Negative (Negative); Blood Urine Trace (Negative); Color Urine Yellow; Epithelial Cell Urine Auto 20-30 /lpf (0-5); Glucose Urine UA Negative (Negative); Ketones Urine Negative (Negative); Leukocyte Esterase Urine Negative (Negative); Nitrite Urine Negative (Negative); Protein Urine 1+ (Negative); RBC Urine Automated 0-4 /hpf (0-4); Specific Gravity Urine 1.015 (1.000-1.030); Urobilinogen Urine Negative (Negative); pH Urine 5.5 (4.5-7.5)
[2022-05-01 16:07] LABS: Creatinine Urine Random 54.5 mg/dl
--- NOTE | 2022-05-01 18:32 | Hospitalist Progress Note ---
Date of Service May 01, 2022 Assessment & Plan (1) Acute renal failure (ARF): Plan: Recent Bactrim and Ibuprofen use as outpatient. Nephro consulted and performing workup. Appreciate recommendations. Cont to avoid NSAIDs or contrast. No Lasix unless respiratory distress. Daily BMP. (2) Medication side effect: Plan: ARF after Bactrim use. (3) History of breast cancer: Plan: per oncology. (4) Closed compression fracture of L4 vertebra: Plan: Osteoporotic related compression fractions nontraumatic in nature. 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 Giving the multiple compression fracture she would benefit from an anabolic agent like Tymlos or Forteo first. We will follow-up with rheumatology after this admission. (5) Right shoulder pain: Plan: Nonspecific inflammatory arthritis, less likely gout however colchicine was empirically given. Patient prefers not to start this until she is sure she has gout. She has no other history of red hot swollen joints in the past and no history of gout that she is aware of. Hold colchicine. Possible PMR with mildly elevated inflammatory markers and clinical picture. She is improved now on Day 3 of prednisone. Cont with this and followup with Rheumatology in the next couple of weeks. (6) Hypercalcemia: Plan: Has a recent history of this in outpatient setting. Differential includes but not limited to dehydration (IVF started, ARF), hypercalcemia of malignancy (h/o breast cancer and new, enlarging pulmonary nodules), recent vertebral compression fracture of L4 (alk phos is elevated), immobilization?. IVF started. Repeat PTH, PTHrp, 25OH, Phos, ionized calcium and alb in am. (7) Vitamin D deficiency: Plan: 25 hydroxy level level was 8 in the outpatient setting. PTH also inappropriately low and calcium was elevated at 11, more normal today. Possibly related to dehydration. Start ergocalciferol for vitamin D replacement. Follow-up with rheumatology. (8) Macrocytic anemia: Plan: Progressive anemia monitored by hematology. Patient underwent colonoscopy in February 2022 with single tubular adenoma found and resected. She has internal hemorrhoids and reports external hemorrhoids with no evidence of bleeding. Transfuse 1 unit of blood now and follow-up with hematology. (9) DVT prophylaxis: Plan: SCDs, ambulation-chemoprophylaxis contraindicated in setting of anemia requiring transfusion Full code Disposition-pending resolution of acute renal failure. Courtney [place], DO [facility] Hospitalist Admission and Anticipated Discharge Date Admission Date: April 27, 2022 Subjective 71-year-old female admitted with acute renal failure after use of Bactrim and evidence of dehydration on recent lab work. Creat again stable around 2 She is eating and drinking well. No significant changes with the blood Right and left shoulder pain and ROM is much better today (Day 3 of prednisone) +muscle spasms in her back Review of Systems Review of Systems: All systems were reviewed and negative except as indicated above. Physical Exam Physical Exam: CONSTITUTIONAL: WNWD, vitals as above, generally well- appearing EYES: normal conjunctivae, no scleral icterus ENT: external ear and nose normal, MMM, rosacea appearance to malar area on face. NECK: trachea midline RESPIRATORY: clear to auscultation bilaterally, no crackles, rales or wheezes, normal respiratory effort CARDIOVASCULAR: regular rate and rhythm, S1 and 2 heard without murmurs, gallops or rubs, no JVD, no peripheral edema CHEST: inspection of chest was normal GASTROINTESTINAL: soft, nontender, ND, no guarding MUSCULOSKELETAL: strength 5/5 throughout and now she is moving her right arm wtih increased ease in all directions. She can fully extend her arm forward 90 degrees now when two days ago she had trouble extending it actively past 45 degrees. head is normocephalic and atraumatic SKIN: warm and dry, no rashes NEUROLOGIC: CN 2-12 grossly intact, no sensory deficit, normal cognition, n ormal speech, no tremor PSYCHIATRIC: alert cooperative and oriented to person, place and time. Euthymic mood, makes good eye contact, language grossly intact, recent and remote memory grossly intact. Results & Data Results & Data ([facility]) Vital Signs (Past 12 Hours) Vital Signs Temp Pulse Resp BP Pulse Ox O2 Del Method 05/01/22 16:36 36.6 C 76 16 111/70 97 Room Air 05/01/22 07:19 36.4 C L 63 16 130/77 99 Room Air Laboratory Results [facility] 05/01/22 07:05 Sodium 136 Potassium 3.9 Chloride 102 Carbon Dioxide 23 BUN 41 H Creatinine 2.19 H Glucose 91 Calcium 11.1 H Urine 05/01/22 Range/Units 15:30 Urine Color Yellow Urine Appearance Clear (Clear) Urine pH 5.5 (4.5-7.5) Ur Specific [place] 1.015 (1.000-1.030) Urine Protein 1+ H (Negative) Urine Glucose (UA) Negative (Negative) Medications Administered Current Inpatient Medications Acetaminophen (Acetaminophen 500 Mg Tab) 1,000 mg PO Q8H PRN PRN Reason: pain/fever Stop: 05/28/22 14:44 Cyanocobalamin (Cyanocobalamin (B-12) 500 Mcg Tablet) 500 mcg [facility] Stop: 05/28/22 08:59 Last Admin: 05/01/22 08:54 Dose: 500 mcg Cyclobenzaprine HCl (Cyclobenzaprine Hcl 5 Mg Tab) 5 mg PO Q8H PRN PRN Reason: muscle spasms Stop: 05/31/22 12:29 Ergocalciferol (Ergocalciferol 50,000 Units 1250 Mcg Cap) 50,000 units PO Q7D@0900 [facility] Stop: 05/28/22 08:59 Last Admin: 04/28/22 10:21 Dose: 50,000 units Folic Acid (Folic Acid 1 Mg Tab) 1 mg [facility] Stop: 05/29/22 08:59 Last Admin: 05/01/22 08:54 Dose: 1 mg Gabapentin (Gabapentin 100 Mg Cap) 200 mg PO TID [facility] Stop: 05/27/22 08:59 Last Admin: 05/01/22 13:30 Dose: 200 mg Sodium Chloride (Nss 1000ml) 1,000 mls @ 150 mls/hr IV .Q6H40M [facility] Stop: 05/31/22 08:39 Last Admin: 05/01/22 16:11 Dose: 150 mls/hr Prednisone (Prednisone 20 Mg Tab) 20 mg PO DAILY [facility] Stop: 05/30/22 08:59 Last Admin: 05/01/22 08:55 Dose: 20 mg Thiamine HCl (Thiamine Hcl 100 Mg Tab) 100 mg [facility] Stop: 05/29/22 08:59 Last Admin: 05/01/22 08:54 Dose: 100 mg Tramadol HCl (Tramadol Hcl 50 Mg Tablet) 25 mg PO Q4H PRN PRN Reason: Moderate Pain 4,5,6 Stop: 05/27/22 20:58 Last Admin: 05/01/22 09:44 Dose: 25 mg (1) Acute renal failure (ARF) Acute renal failure type: with acute tubular necrosis Qualified Code(s): N17.0 - Acute kidney failure with tubular necrosis (2) Closed compression fracture of L4 vertebra Encounter type: initial encounter Qualified Code(s): S32.040A - Wedge compression fracture of fourth lumbar vertebra, initial encounter for closed fracture
[2022-05-02] MEDS: SODIUM CHLORIDE 0.9% 1000ML 1,000 ML IV SCH ×3 (04:28→17:23)
[2022-05-02 06:03] LABS: Hematocrit (blood only) 26.9 % (34.1-44.9); Hemoglobin 8.6 g/dl (12.0-16.0); Mean Corpuscular Hemoglobin 32.8 pg (25.0-34.0); Mean Corpuscular Volume 102.7 fL (80.0-100.0); Mean Platelet Volume 9.3 fL (9.4-12.3); Platelet Count 242 K/uL (130-400); RDW Coefficient of Variation 16.3 % (11.5-14.5); RDW Standard Deviation 62.4 fL (36.4-46.3); Red Blood Count 2.62 M/uL (3.93-5.22); White Blood Count 7.57 K/ul (4.8-10.8)
[2022-05-02 06:32] LABS: Albumin Level 3.9 gm/dl (3.4-5.0); BUN Creatinine Ratio 23.7 (10-20); Calcium 10.4 mg/dl (8.5-10.1); Creatinine Clr Calc Pharmacy 27.7 ml/min; Est GFR (African American) 33.8 ml/min; Est GFR (Non-African American) 29.2 ml/min; Phosphorus 4.2 mg/dl (2.5-4.9); Potassium 4.1 mmol/L (3.5-5.1)
[2022-05-02] MEDS: FOLIC ACID 1 MG TAB PO SCH (07:59)
[2022-05-02] MEDS: GABAPENTIN 100 MG CAP PO SCH ×3 (07:59→20:24)
[2022-05-02] MEDS: predniSONE 20 MG TAB PO SCH (07:59)
[2022-05-02] MEDS: CYANOCOBALAMIN (B-12) 500 MCG TABLET PO SCH (07:59)
[2022-05-02] MEDS: THIAMINE HCL 100 MG TAB PO SCH (07:59)
--- NOTE | 2022-05-02 12:28 | Nephrology Progress Note ---
Date of Service May 02, 2022 Assessment & Plan Admission and Anticipated Discharge Date Admission Date: April 27, 2022 Subjective Subjective S---making urine. No active Symptoms. PHYSICAL EXAMINATION: GENERAL: Elderly white female who is of moderate build. She is not in any respiratory distress. She was able to give detailed account of her medical history. Normal speech. HEENT: Mucous membrane is moist. NECK: Supple. No jugular venous distention. CHEST: Bilaterally clear to auscultation. CARDIOVASCULAR: S1 and S2, regular. ABDOMEN: Soft, nontender. EXTREMITIES: Show no edema. NEUROLOGIC: Awake, alert, oriented x3, normal speech. Moving all 4 extremities. LABORATORY TEST: Creat about same for 4 days now. High grade proteinuria--7 by ratio. ASSESSMENT AND PLAN: A 71-year-old female admitted with acute renal failure. I have been consulted for this. Acute renal failure: At baseline, she has normal kidney function and at the time of admission, she had a creatinine of 2.4, which does qualify as acute renal failure. However, for the last 2 days, creatinine has been trending down, but slowly. She was taking ibuprofen as well as Bactrim prior to hospitalization and both of these drugs can be associated with acute renal failure. Urine sediment was quite active, so there is a possibility she may have had some degree of acute tubular necrosis, but this is not a severe type of acute tubular necrosis as creatinine has been trending down slowly. RECOMMENDATION: 1. Ultrasound of the kidney and bladder--done and normal. 2. Echocardiogram given finding of moderate pulmonary edema--Some LVH and diastolic otherwise normal. 3. Avoid Bactrim, NSAIDs, contrast agents or any nephrotoxic drugs. 4. Renal panel daily.Creat not a whole lot different 5. Check serum and urine immunofixation given Anemia, ARF and proteinuria. All pending. 6 Pending 24 hr urine protein also.On the random has 7.9 by ratio. 7 Already ruled out pre/ post renal cause. Creat and Ca++ both came down with iv hydration. Lower to 100 ml per hr. She does not have ride home today and prefer to stay one more night for better recovery NS 100 /hr one more day to see how low Creat can come. outpt workup for proteinuria/CKD--may even need renal biopsy if does not get better in the coming days. She has some type of intrinsic renal Disease--given high Ca++ severe anemia and Now Abnormal Creat could well some type of paraprotein related DZ pending ANCA, AZEB, c3,c4, Anti dsDNA repeat UA. Results & Data ([facility]) Vital Signs (Past 12 Hours) Vital Signs Temp Pulse Resp BP Pulse Ox O2 Del Method 05/02/22 07:53 36.7 C 64 18 114/71 98 Room Air
--- NOTE | 2022-05-02 15:09 | Hospitalist Progress Note ---
Date of Service May 02, 2022 Assessment & Plan (1) Acute renal failure (ARF): Plan: Recent Bactrim and Ibuprofen use as outpatient. ATN present-FeNa is 1.9%. Improved creatinine with IVF overnight and continued time away from insult. Proteinuria. Workup per nephrology. (2) Medication side effect: Plan: ARF after Bactrim use. (3) History of breast cancer: Plan: per oncology. (4) PMR (polymyalgia rheumatica): Plan: Nonspecific inflammatory arthritis, less likely gout however colchicine was empirically given. Patient prefers not to start this until she is sure she has gout. She has no other history of red hot swollen joints in the past and no history of gout that she is aware of. Hold colchicine. Possible PMR with mildly elevated inflammatory markers and clinical picture. She is improved now on Day 3 of prednisone. Cont with this and followup with Rheumatology in the next couple of weeks. (5) Closed compression fracture of L4 vertebra: Plan: Osteoporotic related compression fractions nontraumatic in nature. Per outpatient application security architect there is a updated DEXA scan requested prior to initiating treatment. Giving the multiple compression fracture she would benefi t from an anabolic agent like Tymlos or Forteo first. We will follow-up with rheumatology after this admission. (6) Hypercalcemia: Plan: Has a recent history of this in outpatient setting. Differential includes but not limited to dehydration (IVF started, ARF), hypercalcemia of malignancy (h/o breast cancer and new, enlarging pulmonary nodules), recent vertebral compression fracture of L4 (alk phos is elevated), immobilization?. IVF started and there is improvement in calcium levels today. (7) Vitamin D deficiency: Plan: 25 hydroxy level level was 8 in the outpatient setting. PTH also inappropriately low and calcium was elevated at 11, more normal today. Possibly related to dehydration. Start ergocalciferol for vitamin D replacement. Follow-up with rheumatology. (8) Macrocytic anemia: Plan: Progressive anemia monitored by hematology. Patient underwent colonoscopy in February 2022 with single tubular adenoma found and resected. She has internal hemorrhoids and reports external hemorrhoids with no evidence of bleeding. Transfused 1 unit of blood now and follow-up with hematology. (9) DVT prophylaxis: Plan: SCDs, ambulation-chemoprophylaxis contraindicated in setting of anemia requiring transfusion Full code Disposition-pending resolution of acute renal failure. Courtney [place], DO [facility] Hospitalist Admission and Anticipated Discharge Date Admission Date: April 27, 2022 Subjective 71-year-old female admitted with acute renal failure after use of Bactrim and evidence of dehydration on recent lab work. Creatinine improved to 1.7 with addition of IVF. Calcium improved She is feeling well overall Reports shoulder pain is almost gone. Reports a history of dystonia and states she is having significant muscle spasms. Review of Systems Review of Systems: All systems were reviewed and negative except as indicated above. Physical Exam Physical Exam: CONSTITUTIONAL: WNWD, vitals as above, generally well- appearing EYES: normal conjunctivae, no scleral icterus ENT: external ear and nose normal, MMM, rosacea appearance to malar area on face. NECK: trachea midline RESPIRATORY: clear to auscultation bilaterally, no crackles, rales or wheezes, normal respiratory effort CARDIOVASCULAR: regular rate and rhythm, S1 and 2 heard without murmurs, gallops or rubs, no JVD, no peripheral edema CHEST: inspection of chest was normal GASTROINTESTINAL: soft, nontender, ND, no guarding MUSCULOSKELETAL: strength 5/5 throughout and now she is moving her right arm wtih increased ease in all directions. She screamed in pain when I palpated her paraspinal musculature in the lower thoracics while she was in a sitting position. SKIN: warm and dry, no rashes NEUROLOGIC: CN 2-12 grossly intact, no sensory deficit, normal cognition, normal speech, no tremor PSYCHIATRIC: alert cooperative and oriented to person, place and time. Euthymic mood, makes good eye contact, language grossly intact, recent and remote memory grossly intact. Results & Data Results & Data ([facility]) Vital Signs (Past 12 Hours) Vital Signs Temp Pulse Resp BP Pulse Ox O2 Del Method 05/02/22 07:53 36.7 C 64 18 114/71 98 Room Air Laboratory Results Short CBC 05/02/22 Range/Units 05:36 WBC 7.57 (4.8-10.8) K/ul Hgb 8.6 L (12.0-16.0) g/dl Hct 26.9 L (34.1-44.9) % Plt Count 242 (130-400) K/uL BMP 05/02/22 05:36 Sodium 139 Potassium 4.1 Chloride 109 H Carbon Dioxide 23 BUN 41 H Creatinine 1.73 H D Glucose 76 Calcium 10.4 H Liver Function 05/02/22 Range/Units 05:36 Albumin 3.9 (3.4-5.0) gm/dl Urine 05/01/22 Range/Units 15:30 Urine Color Yellow Urine Appearance Clear (Clear) Urine pH 5.5 (4.5-7.5) Ur Specific [place] 1.015 (1.000-1.030) Urine Protein 1+ H (Negative) Urine Glucose (UA) Negative (Negative) Medications Administered Current Inpatient Medications Acetaminophen (Acetaminophen 500 Mg Tab) 1,000 mg PO Q8H PRN PRN Reason: pain/fever Stop: 05/28/22 14:44 Cyanocobalamin (Cyanocobalamin (B-12) 500 Mcg Tablet) [address] [place] Stop: 05/28/22 08:59 Last Admin: 05/02/22 07:59 Dose: 500 mcg Cyclobenzaprine HCl (Cyclobenzaprine Hcl 5 Mg Tab) 5 mg PO Q8H PRN PRN Reason: muscle spasms Stop: 05/31/22 12:29 Last Admin: 05/01/22 19:02 Dose: 5 mg Ergocalciferol (Ergocalciferol 50,000 Units 1250 Mcg Cap) 50,000 units PO Q7D@0900 [facility] Stop: 05/28/22 08:59 Last Admin: 04/28/22 10:21 Dose: 50,000 units Folic Acid (Folic Acid 1 Mg Tab) [address] [facility] [place] Stop: 05/29/22 08:59 Last Admin: 05/02/22 07:59 Dose: 1 mg Gabapentin (Gabapentin 100 Mg Cap) 200 mg PO TID [facility] Stop: 05/27/22 08:59 Last Admin: 05/02/22 14:23 Dose: 200 mg Sodium Chloride (Nss 1000ml) 1,000 mls @ 100 mls/hr IV .Q10H DEANDRA Stop: 05/31/22 08:39 Last Infusion: 05/02/22 14:35 Dose: 100 mls/hr Prednisone (Prednisone 20 Mg Tab) 20 mg PO DAILY [facility] Stop: 05/30/22 08:59 Last Admin: 05/02/22 07:59 Dose: 20 mg Thiamine HCl (Thiamine Hcl 100 Mg Tab) 100 mg PO QAM DEANDRA Stop: 05/29/22 08:59 Last Admin: 05/02/22 07:59 Dose: 100 mg Tramadol HCl (Tramadol Hcl 50 Mg Tablet) 25 mg PO Q4H PRN PRN Reason: Moderate Pain 4,5,6 Stop: 05/27/22 20:58 Last Admin: 05/01/22 09:44 Dose: 25 mg (1) Closed compression fracture of L4 vertebra Encounter type: initial encounter Qualified Code(s): S32.040A - Wedge compression fracture of fourth lumbar vertebra, initial encounter for closed fracture (2) Acute renal failure (ARF) Acute renal failure type: with acute tubular necrosis Qualified Code(s): N17.0 - Acute kidney failure with tubular necrosis
[2022-05-02] MEDS: BACLOFEN 10 MG TAB PO SCH ×2 (16:55→23:49)
[2022-05-03] MEDS: SODIUM CHLORIDE 0.9% 1000ML 1,000 ML IV SCH ×2 (02:26→13:45)
[2022-05-03] MEDS: traMADol HCL 50 MG TABLET PO PRN ×2 (02:29→11:14)
[2022-05-03 06:14] LABS: BUN Creatinine Ratio 24.8 (10-20); Calcium 9.9 mg/dl (8.5-10.1); Est GFR (African American) 35.8 ml/min; Est GFR (Non-African American) 30.9 ml/min; Potassium 3.7 mmol/L (3.5-5.1)
[2022-05-03] MEDS: BACLOFEN 10 MG TAB PO SCH (07:38)
[2022-05-03] MEDS: THIAMINE HCL 100 MG TAB PO SCH (08:34)
[2022-05-03] MEDS: GABAPENTIN 100 MG CAP PO SCH ×2 (08:34→14:51)
[2022-05-03] MEDS: FOLIC ACID 1 MG TAB PO SCH (08:34)
[2022-05-03] MEDS: CYANOCOBALAMIN (B-12) 500 MCG TABLET PO SCH (08:34)
[2022-05-03] MEDS: predniSONE 20 MG TAB PO SCH (08:34)
--- NOTE | 2022-05-03 09:25 | Nephrology Progress Note ---
Date of Service May 03, 2022 Assessment & Plan (1) Proteinuria, unspecified: Plan: -Pending 24 hr urine protein also.On the random has 7.9 by ratio. outpt workup for proteinuria/CKD--may even need renal biopsy if does not get better in the coming days. She has some type of intrinsic renal Disease--given high Ca++ severe anemia and Now Abnormal Creat could well some type of paraprotein related DZ pending ANCA, AZEB, c3,c4, Anti dsDNA repeat UA. NEPHRO d/c recommendations -OP nephro hospital d/c appt neph clinic nearest her home w/in 1 wk -bmp and hgb q Mon/Thurs to be ordered by neph nurse for next 2 wks (2) ANDRADE (acute kidney injury): Plan: Intrinsic ANDRADE; baseline renal function 0.9-1.1. Urine sediment was quite active, so there is a possibility she may have had some degree of acute tubular necrosis, but this is not a severe type of acute tubular necrosis as creatinine has been trending down. /xewR at 1.7 today from peak of 2.4 in setting of significant/8 gm proteinuria and with hypercalcemia, acute on chronic anemia e specially worrisome. Ultrasound of the kidney and bladder--done and normal. Echocardiogram given finding of moderate pulmonary edema--Some LVH and diastolic otherwise normal. Avoid Bactrim, NSAIDs, contrast agents or any nephrotoxic drugs. (3) Hypercalcemia: Plan: low D stores, low normal PTH; PTHrp pending; concerning in setting of proteinuria, anemia, ANDRADE for dysproteinemia but labs pending -cont IVF while in house (4) Macrocytic anemia: Plan: has needed transfusion this admission Admission and Anticipated Discharge Date Admission Date: April 27, 2022 Results & Data ([facility]) Vital Signs (Past 12 Hours) Vital Signs Temp Pulse Pulse Resp BP Pulse Ox O2 Del Method 05/03/22 07:58 36.5 C 80 20 112/70 98 Room Air 05/03/22 06:57 36.4 C L 76 14 120/77 98 Room Air 05/02/22 23:40 36.3 C L 18 119/83 98 Laboratory Results 05/02/22 05:36 05/03/22 05:20
[2022-05-03 11:20] VITALS: TEMP 97.5
--- NOTE | 2022-05-03 14:11 | Magnetic Resonance Report ---
CERVICAL SPINE MRI HISTORY: h/o breast cancer, severe back pain, L hand numbness TECHNIQUE: Utilizing a 1.5 [place] MRI, sagittal T2 and sagittal STIR sequences of the cervical spine w as performed without the use of contrast. The patient was unable to tolerate the remaining examinatio n. COMPARISON STUDY: None. FINDINGS: Multiple compression deformities within the thoracic and lumbar spine are better present on the same day thoracic spine MRI. There is motion artifact throughout the cervical spine. This result s in suboptimal evaluation. No definite acute or chronic fractures identified. No subluxation. There is mild disc space narrowing at C4-C5 and C5-C6, and C6-C7. The visualized posterior fossa appears in tact. The prevertebral soft tissues are normal in thickness. The cervical spinal cord appears to demo nstrate normal signal intensity but is now well evaluated due to the motion artifact. No suspicious o sseous lesions identified within the cervical spine. C2-C3: No significant central canal or neural foraminal narrowing. C3-C4: Small broad-based posterior disc bulge without significant central canal or neural foraminal n arrowing. C4-C5: Broad-based posterior disc bulge resulting in mild central canal narrowing. The neural foramen are not well-visualized due to motion artifact. C5-C6: Tiny broad-based posterior disc bulge without significant central canal or neural foraminal na rrowing. C6-C7: No significant central canal or neural foraminal narrowing. C7-T1: No significant central canal or neural foraminal narrowing. IMPRESSION: 1. Difficult study to interpret due to motion artifact and incomplete examination as the patient was unable to tolerate the entire length of the examination. 2. No acute fractures or subluxation within the cervical spine. 3. Mild degenerative disc disease as described above. 4. No suspicious osseous lesions identified. 5. Please refer to same day thoracic spine MRI for further evaluation of the thoracic and lumbar spin e compression deformities. ACT 112: Negative or not required by law. Electronically signed by: James Gilman M.D. 05/03/2022 2:10 PM
[2022-05-03 15:21] VITALS: O2SAT 96
--- NOTE | 2022-05-03 15:42 | Magnetic Resonance Report ---
MR thoracic spine wo con HISTORY: 71 years-old Female h/o breast cancer, severe back pain . Severe low back pain in a patient with history of breast cancer and prior mastectomy. History of osteoporosis. COMPARISON: Chest CT 12/05/2021, CT lumbar spine 12/04/2021 TECHNIQUE: Multiplanar multisequence MRI of the thoracic spine was obtained without the use of IV con trast. FINDINGS: The senior digital designer localizer images demonstrate no gross extraspinal abnormality. Motion degraded exam. Small layering pleural effusions with increased signal of the lung bases. Nodular foci are again seen throu ghout the lungs bilaterally. Cardiomegaly. Superior endplate compression deformity at L4 redemonstrat ed with mild progressive vertebral body height loss and unchanged 2 mm retropulsion. Additional L1, L 2 and L3 compression deformities are noted on the senior digital designer localizer images which are new from the 2021 study. No corresponding significant marrow edema at L1 or L2. Scattered vertebral body hemangiom as including a 9 mm lesion at L2. Chronic mild superior endplate compression at T6 and T7 redemonstra laura. Mild superior endplate compression of the T10, T11 and T12 vertebral bodies without significant retropulsion is new from 12/05/2021, however there is no significant bone marrow edema. No definitivel y acute fracture or endplate erosion identified. The conus medullaris terminates at T12. Signal within the imaged thoracic spinal cord appears normal. No epidural fluid collections are identified. Mild to moderate multilevel intervertebral disc space narrowing with moderate spondylitic spurring an d facet arthrosis. Posterior annular disc bulging is noted at T9-T10 and T10-T11 without significant central canal stenosis. There is at least mild bilateral neural foraminal narrowing at T10-T11. Poste rior disc osteophyte complex at T11-T12 flattens the ventral thecal sac without significant central c anal stenosis. There is at least mild left-sided neural foraminal narrowing at this interspace. IMPRESSION: 1. Motion degraded exam. 2. Compression deformities of the T10-L3 vertebral bodies are new from November 2021 and are likely suba cute without significant retropulsion or central canal stenosis. 3. No suspicious findings identified to suggest osseous metastasis. 4. Cardiomegaly with pleural effusions and pulmonary findings which are redemonstrated and are better seen on the comparison imaging of the chest. 5. Normal signal of the thoracic spinal cord. ACT 112: Negative or not required by law. The above report was generated using voice recognition software. It may contain grammatical, syntax o r spelling errors. Dictated: 05/03/2022 2:12 PM Transcribed: 05/03/2022 2:56 PM Zofia [id number] [email or web address] Electronically signed by: Musa Alfaro M.D. 05/03/2022 3:41 PM
--- NOTE | 2022-05-03 16:29 | Discharge Summary ---
Date of Service May 03, 2022 Principal Diagnosis Acute renal failure with ATN Medication side effect after Bactrim use Back pain with evidence of multi-level compression fractures PMR Hypercalcemia/macrocytic anemia/proteinuria vitamin D deficiency Discharge Exam CONSTITUTIONAL: WNWD, vitals as above, generally well-appearing EYES: normal conjunctivae, no scleral icterus ENT: external ear and nose normal, MMM, rosacea appearance to malar area on face. NECK: trachea midline RESPIRATORY: clear to auscultation bilaterally, no crackles, rales or wheezes, normal respiratory effort CARDIOVASCULAR: regular rate and rhythm, S1 and 2 heard without murmurs, gallops or rubs, no JVD, no peripheral edema CHEST: inspection of chest was normal GASTROINTESTINAL: soft, nontender, ND, no guarding MUSCULOSKELETAL: strength 5/5 throughout and now she is moving her right arm wtih increased ease in all directions. She screamed in pain when I palpated her paraspinal musculature in the lower thoracics while she was in a sitting position. SKIN: warm and dry, no rashes NEUROLOGIC: CN 2-12 grossly intact, no sensory deficit, normal cognition, normal speech, no tremor PSYCHIATRIC: alert cooperative and oriented to person, place and time. Euthymic mood, makes good eye contact, language grossly intact, recent and remote memory grossly intact. Discharge Data Allergies Allergy/AdvReac Type Severity Reaction Status Date / Time bee venom protein (honey bee) Allergy Severe . Verified 12/04/21 23:31 clobetasol Allergy Allergy Verified 12/04/21 23:32 test said was allergic Consultations 04/26/22 21:51 ED Decision to Admit Stat 04/27/22 16:05 Consult Nephrology Routine Ordered Studies 04/28/22 10:10 US Renal Bladder [US renal/blad retro comp] Routine 05/03/22 07:00 MR cervical spine wo con Routine MR thoracic spine wo con Routine Hospital Course (1) Acute renal failure (ARF): (2) Medication side effect: (3) Hypercalcemia: (4) Macrocytic anemia: (5) PMR (polymyalgia rheumatica): (6) History of breast cancer: (7) Closed compression fracture of L4 vertebra: (8) Vitamin D deficiency: Plan 71 yo female presented to the ER with worsening renal function (create 2.4, baseline 0.8) after Bactrim use as outpatient in the setting of chronic Ibuprofen for shoulder pain. Despite IVF her creatinine did not improve much, and Nephrology was consulted. It was suggested that acute renal failure was due to acute tubular necrosis and nephrotoxic substances were avoided. A renal us was normal. A chest Xray revealed pulmonary edema, although she did not appear volume overloaded on exam. An echocardiogram on 04/28 revealed mild concentric left ventricular hypertrophy with normal left ventricular systolic function and an EF 55-60%. Her left atrium was mildly dilated, and she had grade II diastolic dysfunction. Hemoglobin slowly fell to 6.9 after intravenous fluids, and she reported dizziness with standing and was weak and fatigued. She was transfused one unit of RBCs on 04/28 with no significant improvement the following day noted by patient. She continued to report a nonspecific inflammatory arthritis present for months. She was seen by Rheumatology about this prior to admission. Colchicine had empirically been given; however, the patient didnt want to start this unless she knew her issue to truly be gout. She had mildly elevated inflammatory markers on bloodwork and was given a low dose of prednisone to take with significant improvement in her shoulder pain over the next three days. She was given a diagnosis of polymyalgia rheumatica and was advised to follow-up closely with rheumatology to discuss this further. She was started on ergocalciferol for her vitamin D deficiency noted on recent outpatient bloodwork. She also developed worsening hypercalcemia during her stay which was treated with intravenous fluids. Bisphosphonate therapy was not given as hypercalcemia was mild and she was supposed to have a DEXA scan to help guide her osteoporosis treatment within the next week after discharge. Proteinuria was also noted. Serum and urine immunofixation were also performed given her anemia, acute renal failure and proteinuria. And with high calcium, paraprotein disease may also be present. ANCA, AZEB, C3, C4, anti- DSDNA were drawn. These tests were pending at the time of discharge. She was discharged in stable condition with close primary care followup recommended. Total Time Total Time Spent Total Time Spent (In Minutes): 60 Discharge Plan Discharge Items Patient Disposition: Home - Self-Care Reason For Visit: ANDRADE Discharge Diagnosis: Acute renal failure with ATN Medication side effect after Bactrim use Back pain with evidence of multi-level compression fractures PMR Hypercalcemia/macrocytic anemia/proteinuria vitamin D deficiency Condition on Discharge: Good Activity: Resume your previous activity Non-emergency contact: Primary Care Provider Call non-emergency contact if: you have any medication questions, your symptoms worsen, your pain is not controlled, your pain is worsening, your pain is unusual for you, your pain is concerning for you and your temperature is above 101.5 Follow-up/Referrals: Sherwin Obrien MD [Primary Care Provider] - (Date & Time 05/06/2022 3:00 PM Provider LATONYA Bagley Department [facility] ) Jh Mendes MD [Surgeon] - (Date & Time 06/22/2022 9:00 AM Provider Jh Mendes MD Department Nephrology, [facility] ) Diet: Carb Consistent or DM2 and Heart Healthy Addtl Attending Provider Instructions: Please take all medications as instructed on discharge list below. You are being placed on vitamin D supplementation for the next few weeks to increase your stores. Your shoulder pain responded well to the low dose prednisone, which may indicate that you have polymyalgia rheumatica. Please continue this low dose medication until followup with re-evaluation by your primary care physician. Repeat inflammatory markers such as ESR and CRP may be repeated and ultimate confirmation of this diagnosis would be from your bull fiddle player. You were found to have high calcium levels that were treated with intravenous fluids. You did not receive bisphophonate therapy given your upcoming dexa scan planned at the end of the month, and close follow-up with rheumatology scheduled for selection of an osteoporosis agent that is right for you. In the meantime, this high calcium may return and may be a part of a more extensive diagnosis given your protein in the the urine, your macrocytic anemia and renal function. There are urine studies that are still pending at the time of discharge that should be followed up by your primary care provider on follow- up. A follow-up with [facility] Nephrology is recommended at the date and time above. Please avoid NSAIDs (non-steroidal anti-inflammatory drugs) such as Motrin, Naproxen, etc for the time being. For any pain you may use tylneol or Tramadol (prescribed). It was a pleasure taking care of you! Please call if you have any questions or problems. You can reach a [facility] hospitalist on duty at [facility] 24 hours a day by calling [phone]. Take care of yourself. Courtney Pearson DO [facility] Hospitalist Pending Studies at Discharge: Yes Stand-Alone Forms: [facility] Medications and DC Order Prescriptions: New tramadol 50 mg Tablet 25 mg PO Q8H PRN (Reason: severe pain (scale score 7-10)) Qty: 20 0RF prednisone 20 mg Tablet 20 mg PO DAILY Qty: 14 0RF ergocalciferol (vitamin D2) 1,250 mcg (50,000 unit) Capsule 50,000 unit PO Q7D@0900 Qty: 10 0RF Continued gabapentin 100 mg capsule 200 mg PO TID Rx Instructions: take 2 capsules in morning,noon and before bed colchicine 0.6 mg tablet 0.6 mg PO [facility] epinephrine 0.3 mg/0.3 mL auto-injector 0.3 mg IM UD PRN (Reason: Allergic Reaction) cyclobenzaprine 5 mg tablet 5 mg PO UD PRN (Reason: Muscle Spasm) cyanocobalamin (vitamin B-12) [Vitamin B-12] 100 mcg Tablet 100 mcg PO QAM Qty: 30 2RF Discharge Orders: Discharge Order (Routine); Ordered 05/03/22 Ordered By: Courtney Pearson Admission Data Admit Date/Time: 04/27/22 01:35 Attending Provider: Courtney Pearson Admit Provider: Nithin Jacques Primary Care Provider: Sherwin Obrien Other Providers: Nithin Jacques ; Parish Araujo [facility] ; Jh Mendes Other Interventions: Discharge Summary Assessment (RN) Last Done: 05/03/22 16:33
[2022-05-03 16:34] VITALS: BP 127/77; PULSE 75
[2022-05-04 09:41] LABS: Abnormal Protein Band 1 5546 mg/24 h (NONE DETECTED); Abnormal Protein Band 2 DNR mg/24 h (NONE DETECTED); Abnormal Protein Band 3 DNR mg/24 h (NONE DETECTED); Creatinine, 24 hr Urine 0.77 g/24 h (0.50-2.15); Protein, Urine 24 Hour 6478 mg/24 h (<150); Ur Protein/Creatinine Rat mg/g 8410 mg/g creat (< OR = 114)
[2022-05-12 04:17] LABS: ANCA Screen Negative (Negative); Anti Nuclear Antibody Screen NEGATIVE (NEGATIVE); Complement C3 147 mg/dL (83-193); Complement Total(CH50) >60 U/mL (31-60); Myeloperoxidase Ab <1.0 AI (<1.0); Proteinase-3 AB <1.0 AI (<1.0)
== END 2022-05-03 17:16 | disposition home health service (06) | DRG 683 ==
LOC: ED 19:18 → SUATTDRO 04-27 01:35 → 3E 04-27 01:35

== ENCOUNTER 2022-09-17 11:49 | Inpatient (IN) ==
[2022-09-17 12:36] LABS: Basophils # (auto) 0.03 K/uL (0-0.2); Basophils % (auto) 0.3 %; Eosinophils # (auto) 0.01 K/uL (0-0.50); Eosinophils % (auto) 0.1 %; Hematocrit (blood only) 38.7 % (34.1-44.9); Immature Granulocytes # (auto) 0.09 K/uL (0.00-0.02); Immature Granulocytes % (auto) 0.9 %; Lymphocytes % (auto) 22.7 %; Mean Corpuscular Hemoglobin 34.2 pg (25.0-34.0); Mean Corpuscular Hgb Conc 33.6 g/dL (32.0-36.0); Mean Corpuscular Volume 101.8 fL (80.0-100.0); Mean Platelet Volume 10.1 fL (9.4-12.3); Monocytes # (auto) 0.43 K/uL (0.24-0.82); Monocytes % (auto) 4.2 %; Neutrophils # (auto) 7.28 K/uL (1.4-6.5); Neutrophils % (auto) 71.8 %; Platelet Count 227 K/uL (130-400); RDW Coefficient of Variation 13.3 % (11.5-14.5); RDW Standard Deviation 49.6 fL (36.4-46.3); White Blood Count 10.14 K/ul (4.8-10.8)
[2022-09-17 12:46] LABS: Partial Thromboplastin Ratio 0.8; Partial Thromboplastin Time 20.8 Seconds (21.0-31.0); Prothrombin Time 10.2 Seconds (9.0-12.0)
--- NOTE | 2022-09-17 13:05 | Electrocardiogram Report ---
Test Reason : Blood Pressure : / mmHG Vent. Rate : 066 BPM Atrial Rate : 066 BPM P-R Int : 126 ms QRS Dur : 068 ms QT Int : 388 ms P-R-T Axes : 043 055 063 degrees QTc Int : 406 ms Poor data quality, interpretation may be adversely affected Normal sinus rhythm Nonspecific ST abnormality Abnormal ECG When compared with ECG of 16-JUN-2022 00:41, No significant change was found Confirmed by Xiang Cee ([id number]) on 09/17/2022 1:05:21 PM Referred By: ED Confirmed By:Otto Cee
[2022-09-17 13:06] LABS: Alanine Aminotransferase 18 U/L (7-52); Albumin Globulin Ratio 1.7 (0.9-2); Albumin Level 3.9 gm/dl (3.4-5.0); Alkaline Phosphatase 120 U/L (34-104); Anion Gap 6 (3-11); BUN Creatinine Ratio 23.1 (10-20); Bilirubin,Total 0.7 mg/dl (0.2-1.0); Blood Urea Nitrogen 15 mg/dl (6-23); Carbon Dioxide 32 mmol/L (21-32); Chloride 103 mmol/L (98-107); Creatinine Clr Calc Pharmacy 71.2 ml/min; Est GFR (African American) 102.8 ml/min; Est GFR (Non-African American) 88.7 ml/min; Globulin 2.3 gm/dl (2.5-4.0); Glucose 91 mg/dl (70-99(Fasting)); Sodium 141 mmol/L (136-145); Total Protein 6.2 gm/dl (6.0-8.3); Troponin I High Sensitivity 7.5 pg/ml (0-14)
--- NOTE | 2022-09-17 13:51 | Emergency Department Note ---
Impression & Plan Chest pain ED Provider Note INFORMANT: Patient ED PROVIDER(S): Troy Myers MD CHIEF COMPLAINT: Chest pain PLAN: Disposition: Admitted Condition: Guarded Outpatient prescription management: none Referral: None MEDICAL DECISION MAKING: Patient presented because of pleuritic chest pain. She had a work-up initiated. Her EKG, CBC, chemistry panel, and cardiac troponin were negative. Patient was sent for CT imaging given her high risk for pulmonary emboli and unfortunately the patient was found to have right-sided subsegmental blood clots. Patient was reassessed and was stable. She did request something for pain after initial declining. Patient was given IV fentanyl. We discussed blood thinner. Patient has no known history of metastatic lesions. Heparin, low-dose without bolus was ordered. [facility] Patient was evaluated in the ER and admitted for further management. Triage Nursing notes reviewed and agree them. Vital Signs: reviewed and remarkable for mild hypertension Differential diagnosis: Cardiac ischemia, aortic dissection, pulmonary embolism, pneumothorax, pneumonia, pericarditis, myocarditis, esophageal rupture, GERD, cholecystitis, pancreatitis, musculoskeletal, as well as other pathologies. Diagnostics interpreted by me: EC Lead ECG performed and revealed Normal sinus rhythm at 66, nonspecific ST abnormality,, normal [place], QRS normal. No elevation or depression. No PACs or PVCs Cardiac Monitoring: Cardiac monitoring ordered by me: The patient was placed on continuous cardiac monitoring and observed. It revealed a normal sinus rhythm at 66 beats per minute without ectopy or evidence of dysrhythmia. Imaging studies: CT scan of the chest revealed right-sided pulmonary emboli. I refer you to the EMR for further details. HPI: The patient is a 72 year old female who presents to the Emergency Room with complaints of chest pain . This started today and is worse with inspiration. The patient also notes the following associated symptoms, chronic back pain with history of compression fractures. The patient has been given aspirin by EMS for relieving factors. Current pain is rated as 6/10. Pain is sharp. Patient notes a history of breast cancer with bilateral mastectomies. She also notes having bone cancer and is undergoing treatment. Pt denies LOC, headache, fevers, chills, diaphoresis, visual changes, neck pain, breathing difficulties, nausea, vomiting, abdominal pain, melena, hematochezia, urinary symptoms, numbness, weakness, lymphadenopathy, rash, or other complaints. ROS: See above HPI for pertinent positives & negatives. A total of 10 systems reviewed and were otherwise negative. PAST MEDICAL HISTORY:See Below , breast cancer PAST SURGICAL HISTORY:See Below, FAMILY HISTORY:See Below SOCIAL HISTORY:See Below, non-smoker HOME MEDICATIONS:See Below ALLERGIES:See Below VITALS:See Below PHYSICAL EXAMINATION: GENERAL: Awake, alert, uncomfortable-appearing, in no distress HENT: Normocephalic, atraumatic. Oropharynx unremarkable. EYES: Normal conjunctiva. Sclera non-icteric. NECK: Inspection normal. Non-tender. Supple. No nuchal rigidity. FROM. No masses. RESPIRATORY: Clear to auscultation. No wheezes. No rales. Normal respiratory effort. CARDIAC: Normal rate. Normal rhythm. No murmurs. No rubs. Extremities warm and well perfused. Pulses equal. No JVD. GI: Soft, non-distended. No tenderness to palpation. No rebound or guarding. No masses. RECTAL: Deferred. MUSCULOSKELETAL: Atraumatic. Chest examination reveals no tenderness. There is no CVA tenderness to palpation. No joint edema. LOWER EXTREMITIES: Calves are equal size bilaterally and non-tender. No edema. No discoloration. NEURO: Normal sensorium. No sensory or motor deficits noted. SKIN: No rash or jaundice noted. CRITICAL CARE: I have personally spent greater than 30 minutes of critical care time in the d irect management of this patient. This includes bedside care, interpretation of diagnostic studies, and testing, discussion with consultants, patient, and family members, and other required patient management activities. This 30 minutes is in excess of all separately billable procedures. Troy Myers MD Past Med/Surg History Medical History (Updated 09/17/22 @ 15:54 by LATONYA Aguilar) Bone lesion History of breast cancer Hypertension Multiple lung nodules Proteinuria, unspecified Pulmonary embolism Surgical History Hx of cholecystectomy Social History Smoking Status: Never smoker Hx Alcohol Use: No Hx Substance Use: No Preferred Language: [place] Communication Ability: Effective Director Mortgage Required: No Beliefs That Will Affect Care: None Current Living Situation: Family Current Living Situation Comment: Lives with 2 daughters Feels Safe at Home: Yes Assistive Devices: Walker Allergies Allergies Allergy/AdvReac Type Severity Reaction Status Date / Time bee venom protein (honey bee) Allergy Unknown edema Verified 09/17/22 15:54 clobetasol Allergy Allergy Verified 09/17/22 15:54 test said was allergic lorazepam AdvReac Unknown syncope Verified 09/17/22 15:54 sulfamethoxazole AdvReac Unknown renal Verified 09/17/22 15:54 [From Bactrim] complications trimethoprim [From Bactrim] AdvReac Unknown renal Verified 09/17/22 15:54 complications Home Meds Home Medications Medication Instructions Recorded Confirmed epinephrine 0.3 mg/0.3 mL 0.3 mg IM UD PRN Allergic Reaction 04/26/22 09/17/22 injection, auto-injector gabapentin 100 mg capsule 200 mg PO TID 04/26/22 09/17/22 baclofen 10 mg tablet 10 mg PO BID PRN muscle spasms 06/16/22 09/17/22 cyanocobalamin (vitamin B-12) 1,000 mcg PO DAILY 06/16/22 09/17/22 1,000 mcg tablet (Vitamin B-12) doxycycline hyclate 50 mg capsule 50 mg PO QAM 06/16/22 09/17/22 acyclovir 400 mg tablet 400 mg PO AMHS 09/17/22 09/17/22 aspirin 81 mg tablet,delayed 81 mg PO QAM 09/17/22 09/17/22 release dexamethasone 4 mg tablet 4 mg PO WK 09/17/22 09/17/22 lenalidomide 25 mg capsule 25 mg PO UD 09/17/22 09/17/22 (Revlimid) prednisone 5 mg tablet 15 mg PO QAM 09/17/22 09/17/22 prochlorperazine maleate 10 mg 10 mg PO Q6H PRN Nausea 09/17/22 09/17/22 tablet tramadol 50 mg tablet 50 mg PO Q8H PRN pain,mild 09/17/22 09/17/22 Results & Data (ED) Vital Signs Vital Signs - 24 hr 09/17/22 12:01 09/17/22 12:01 09/17/22 12:01 Temperature 36.7 C Temperature Source Oral Pulse Rate 63 Pulse Rate [Apical] 63 Pulse Rhythm Regular Pulse Rhythm [Apical] Regular Pulse Strength Normal Pulse Strength [Apical] Normal Respiratory Rate 18 18 Respiratory Effort / Characteristics Non-Labored Non-Labored Respiratory Depth Normal Normal Respiratory Pattern Regular Regular Blood Pressure 154/98 H Blood Pressure [Right Arm] 154/89 H Blood Pressure Mean 116 Blood Pressure Mean [Right Arm] 110 Pulse Oximetry 97 97 97 Oxygen Delivery Method Room Air Room Air Room Air Oxygen Flow Rate 0 Sepsis Recent Fever Within 48 Hours No Sepsis New/Unexplained Change in Mental Status No Sepsis Action Taken by Nursing No Action Required 09/17/22 12:11 09/17/22 12:30 09/17/22 13:00 Temperature Temperature Source Pulse Rate 66 61 Pulse Rate [Apical] Pulse Rhythm Pulse Rhythm [Apical] Pulse Strength Pulse Strength [Apical] Respiratory Rate 16 13 Respiratory Effort / Characteristics Respiratory Depth Respiratory Pattern Blood Pressure 163/92 H 156/91 H Blood Pressure [Right Arm] Blood Pressure Mean 115 112 Blood Pressure Mean [Right Arm] Pulse Oximetry 96 97 Oxygen Delivery Method Room Air Oxygen Flow Rate Sepsis Recent Fever Within 48 Hours Sepsis New/Unexplained Change in Mental Status Sepsis Action Taken by Nursing 09/17/22 13:30 09/17/22 15:00 Temperature Temperature Source Pulse Rate 63 67 Pulse Rate [Apical] Pulse Rhythm Pulse Rhythm [Apical] Pulse Strength Pulse Strength [Apical] Respiratory Rate 18 19 Respiratory Effort / Characteristics Respiratory Depth Respiratory Pattern Blood Pressure 151/74 H Blood Pressure [Right Arm] Blood Pressure Mean 99 Blood Pressure Mean [Right Arm] Pulse Oximetry 96 Oxygen Delivery Method Oxygen Flow Rate Sepsis Recent Fever Within 48 Hours Sepsis New/Unexplained Change in Mental Status Sepsis Action Taken by Nursing Laboratory Data Result diagrams: 09/17/22 12:00 09/17/22 13:14 Lab Results 09/17/22 09/17/22 09/17/22 Range/Units 12:00 12:00 12:00 WBC 10.14 (4.8-10.8) K/ul RBC 3.80 L (3.93-5.22) M/uL Hgb 13.0 (12.0-16.0) g/dl Hct 38.7 (34.1-44.9) % MCV 101.8 H (80.0-100.0) fL MCH 34.2 H (25.0-34.0) pg MCHC 33.6 (32.0-36.0) g/dL RDW Std Deviation 49.6 H (36.4-46.3) fL RDW Coeff of Sophia 13.3 (11.5-14.5) % Plt Count 227 (130-400) K/uL MPV 10.1 (9.4-12.3) fL Immature Gran % (Auto) 0.9 % Neut % (Auto) 71.8 % Lymph % (Auto) 22.7 % [place] % (Auto) 4.2 % Eos % (Auto) 0.1 % Baso % (Auto) 0.3 % Neut # (Auto) 7.28 H (1.4-6.5) K/uL Lymph # (Auto) 2.30 (1.2-3.4) K/uL [place] # (Auto) 0.43 (0.24-0.82) K/uL Eos # (Auto) 0.01 (0-0.50) K/uL Baso # (Auto) 0.03 (0-0.2) K/uL Immature Gran # (Auto) 0.09 H (0.00-0.02) K/uL PT 10.2 (9.0-12.0) Seconds INR 1.0 (0.9-1.1) APTT 20.8 L (21.0-31.0) Seconds PTT Ratio 0.8 Sodium 141 (136-145) mmol/L Potassium TNP Chloride 103 (98-107) mmol/L Carbon Dioxide 32 (21-32) mmol/L Anion Gap 6 (3-11) BUN 15 (6-23) mg/dl Creatinine 0.65 (0.6-1.2) mg/dl Est Cr Clr Drug Dosing 71.2 ml/min Est GFR ( Amer) 102.8 ml/min Est GFR (Non-Af Amer) 88.7 ml/min BUN/Creatinine Ratio 23.1 H (10-20) Glucose 91 (70-99(Fasting)) mg/dl Calcium 10.0 (8.5-10.1) mg/dl Total Bilirubin 0.7 (0.2-1.0) mg/dl AST TNP ALT 18 (7-52) U/L Alkaline Phosphatase 120 H (34-104) U/L Troponin I High Sens 7.5 (0-14) pg/ml Total Protein 6.2 (6.0-8.3) gm/dl Albumin 3.9 (3.4-5.0) gm/dl Globulin 2.3 L (2.5-4.0) gm/dl Albumin/Globulin Ratio 1.7 (0.9-2) 09/17/22 Range/Units 13:14 WBC (4.8-10.8) K/ul RBC (3.93-5.22) M/uL Hgb (12.0-16.0) g/dl Hct (34.1-44.9) % MCV (80.0-100.0) fL MCH (25.0-34.0) pg MCHC (32.0-36.0) g/dL RDW Std Deviation (36.4-46.3) fL RDW Coeff of Sophia (11.5-14.5) % Plt Count (130-400) K/uL MPV (9.4-12.3) fL Immature Gran % (Auto) % Neut % (Auto) % Lymph % (Auto) % [place] % (Auto) % Eos % (Auto) % Baso % (Auto) % Neut # (Auto) (1.4-6.5) K/uL Lymph # (Auto) (1.2-3.4) K/uL [place] # (Auto) (0.24-0.82) K/uL Eos # (Auto) (0-0.50) K/uL Baso # (Auto) (0-0.2) K/uL Immature Gran # (Auto) (0.00-0.02) K/uL PT (9.0-12.0) Seconds INR (0.9-1.1) APTT (21.0-31.0) Seconds PTT Ratio Sodium (136-145) mmol/L Potassium 4.2 Chloride (98-107) mmol/L Carbon Dioxide (21-32) mmol/L Anion Gap (3-11) BUN (6-23) mg/dl Creatinine (0.6-1.2) mg/dl Est Cr Clr Drug Dosing ml/min Est GFR ( Amer) ml/min Est GFR (Non-Af Amer) ml/min BUN/Creatinine Ratio (10-20) Glucose (70-99(Fasting)) mg/dl Calcium (8.5-10.1) mg/dl Total Bilirubin (0.2-1.0) mg/dl AST 14 ALT (7-52) U/L Alkaline Phosphatase (34-104) U/L Troponin I High Sens (0-14) pg/ml Total Protein (6.0-8.3) gm/dl Albumin (3.4-5.0) gm/dl Globulin (2.5-4.0) gm/dl Albumin/Globulin Ratio (0.9-2) Administered Medications Heparin Sodium/Dextrose (Heparin Sodium/Dextrose) 25,000 units in 500 mls @ 14 mls/hr IV .Q24H DEANDRA; Protocol Stop: 10/17/22 15:44 Last Admin: 09/17/22 15:33 Dose: 700 units/hr, 14 mls/hr Documented By: SB Co-signed By: QGV Discontinued Medications Fentanyl Citrate (Fentanyl Citrate 100 Mcg/2 Ml Vial) 50 mcg IV NOW STA Stop: 09/17/22 15:31 Last Admin: 09/17/22 15:33 Dose: 50 mcg Documented By: SB Ioversol (Optiray 320 500ml) 110 ml IV ONCE ONE Stop: 09/17/22 13:54 Last Admin: 09/17/22 13:53 Dose: 110 ml Documented By: [facility] Imaging Data Radiologist's Impression: Chest CTA 09/17/22 12:41 CT angio chest PE protocol CLINICAL HISTORY: Chest pain ,hx of CA and vert comp fx TECHNIQUE: Multidetector row helical CT of the chest was performed with angiographic protocol. Coronal and sagittal reformations were obtained. Coronal and sagittal MIPS were obtained from the axial data set and were submitted for review. Automated dose lowering techniques and/or adjustment according to patient size were utilized for this exam. CT DOSE: 479.20 mGy.cm Comparison: Comparison is made to CT chest 06/16/2022 FINDINGS: Lungs and pleura: Atelectasis versus scarring is seen in the dependent portions of the lungs. Heart and pericardium: There is cardiomegaly without evidence of pericardial effusion. Vessels: There are pulmonary emboli in the segmental level of the right upper and lower lobes. Mediastinum and davy: Numerous mediastinal lymph nodes measure up to 11 mm in diameter. Chest wall and lower neck: Bilateral breast implants are seen. Abdomen: Unremarkable. Bones: Multilevel compression deformities are seen. No evidence of acute fracture. IMPRESSION: 1. Right-sided segmental pulmonary emboli without evidence of right heart strain. 2. Mediastinal lymphadenopathy is similar in extent to prior exam, likely reactive. 3. Bilateral airspace opacities likely representing atelectasis, superimposed pneumonia cannot be entirely excluded. Follow-up to resolution is recommended. ACT 112: Negative or not required by law. Electronically signed by: Taye Miller M.D. 09/17/2022 2:16 PM Discharge Plan Visit Data Chief Complaint: Chest Pain Stated Complaint: CHEST PAIN ED Provider: Troy Myers Discharge Problem: Chest pain Forms Stand Alone Forms: [facility] [employer] Prescriptions Prescriptions: No Action gabapentin 100 mg capsule 200 mg PO TID Rx Instructions: take 2 capsules in morning,noon and before bed epinephrine 0.3 mg/0.3 mL auto-injector 0.3 mg IM UD PRN (Reason: Allergic Reaction) Rx Instructions: for a severe reaction: place orange end against outer thigh,press firmly,hold in place for 10 seconds and go to emergency room baclofen 10 mg tablet 10 mg PO BID PRN (Reason: muscle spasms) doxycycline hyclate 50 mg capsule 50 mg PO QAM cyanocobalamin (vitamin B-12) [Vitamin B-12] 1,000 mcg Tablet 1,000 mcg PO DAILY tramadol 50 mg tablet 50 mg PO Q8H PRN (Reason: pain,mild) lenalidomide [Revlimid] 25 mg capsule 25 mg PO UD Rx Instructions: take 25mg by mouth in the morning for 21 days on,7 days off of a 28 day cycle. take at same time every day and consistently with or without food prednisone 5 mg tablet 15 mg PO QAM prochlorperazine maleate 10 mg Tablet 10 mg PO Q6H PRN (Reason: Nausea) acyclovir 400 mg Tablet 400 mg PO AMHS aspirin [Aspirin Low-Strength] 81 mg Tablet,Delayed Release (Dr/Ec) 81 mg PO QAM dexamethasone 4 mg Tablet 4 mg PO WK Referrals Referrals: Sherwin Obrien MD [Primary Care Provider] -
[2022-09-17 13:52] LABS: Potassium 4.2 mmol/L (3.5-5.1)
[2022-09-17] MEDS ORDERED: OPTIRAY 320 500ml IV ONE (13:53)
--- NOTE | 2022-09-17 14:17 | CT Scan Report ---
CT angio chest PE protocol CLINICAL HISTORY: Chest pain ,hx of CA and vert comp fx TECHNIQUE: Multidetector row helical CT of the chest was performed with angiographic protocol. Denise l and sagittal reformations were obtained. Coronal and sagittal MIPS were obtained from the axial jyoti a set and were submitted for review. Automated dose lowering techniques and/or adjustment according to patient size were utilized for this exam. CT DOSE: 479.20 mGy.cm Comparison: Comparison is made to CT chest 06/16/2022 FINDINGS: Lungs and pleura: Atelectasis versus scarring is seen in the dependent portions of the lungs. Heart and pericardium: There is cardiomegaly without evidence of pericardial effusion. Vessels: There are pulmonary emboli in the segmental level of the right upper and lower lobes. Mediastinum and davy: Numerous mediastinal lymph nodes measure up to 11 mm in diameter. Chest wall and lower neck: Bilateral breast implants are seen. Abdomen: Unremarkable. Bones: Multilevel compression deformities are seen. No evidence of acute fracture. IMPRESSION: 1. Right-sided segmental pulmonary emboli without evidence of right heart strain. 2. Mediastinal lymphadenopathy is similar in extent to prior exam, likely reactive. 3. Bilateral airspace opacities likely representing atelectasis, superimposed pneumonia cannot be en tirely excluded. Follow-up to resolution is recommended. ACT 112: Negative or not required by law. Electronically signed by: Taye Miller M.D. 09/17/2022 2:16 PM
[2022-09-17] MEDS ORDERED: Heparin IV Adult Wt-Based Low-Dose *NO* Bolus Protocol IV ONE (15:17)
[2022-09-17] MEDS ORDERED: fentaNYL citrate 100 MCG/2 ML VIAL IV STA (15:30)
[2022-09-17] MEDS ORDERED: HEPARIN SODIUM/DEXTROSE 25,000 UNITS/500 ML BAG IV SCH (15:45)
--- NOTE | 2022-09-17 15:50 | History & Physical Report ---
Date of Service September 17, 2022 Assessment & Plan (1) Pulmonary embolism: (2) Chest pain: (3) History of breast cancer: (4) Bone lesion: Plan 72-year-old with acute shortness of breath; found to have right lung segmental PE. On heparin drip. Intractable pain related to bone cancer. Started on fentanyl patch; patient is opioid kaveh. Adjust pending her response. Pulmonary Embolism: Chest Pain: -increased SOB. Cp 6/10 'hurts to breathe' -Chest CTA: Right-sided segmental pulmonary emboli -US Venous doppler bilateral LE ordered and pending -Patient started on a heparin drip without bolus due to her cancer -Patient is hemodynamically stable at this time without hypoxia or tachycardia; monitor on heparin drip and consult pulmonology as necessary if no improvements. -Echo pending -Troponin negative -Non-smoker History of Breast Cancer: -s/p bilateral mastectomies -Follows with Dr. Vaughn -11/2021 multiple lung nodules found -PET scan 08/05/2022 noted reducible size Intractable pain: Bone metastasis: -Approximately 10 fractured vertebrae found 11/2021 -Follows with Dr. Vaughn -Patient has been ordered a new regimen including Revlimid, Decadron, aspirin, acyclovir, however she has not started this but it is listed on her med rec. -For this admission we will focus on acute PE and pain management; will defer for above listed treatment options to begin as an outpatient per patient request. -Patient did receive IV fentanyl in ED with relief. Patient resistant to morphine, Dilaudid, oxycodone as she states she has felt dizzy before taking these. -We discussed her overall pain and progression of disease unfortunately likely causing continued pain. I explained that it may not be possible to eliminate her pain however feel that she would benefit from a pain management plan to be in place for her as her disease progresses. -Patient is receptive to a fentanyl patch 12 mcg which I ordered; likely dosing will need adjusted and increased; reassess response in a.m. Goals of Care: -Lengthy conversation held with patient regarding her overall goals of care. She is slated to see Dr. Shelli Cota sometime in September for an initial palliative care encounter. She was tearful throughout our conversation and I did ask her where she is emotionally on her cancer journey. She stated "I have to sometime, but I am not suicidal". "My kids think that I should be done doing jumping jacks at this point, they do not understand". Patient states she has 2 children that do live locally. She did bring up medical marijuana and has said that her multiple friends have told her that she should go through that process but she is not quite sure about it. I did express positive response from numerous patients with bone cancer and that they have different modes of administration (lotion, tincture, etc.). When we discussed CODE STATUS she did hesitate and stated that she was not really ready to make any decisions but does understand that as her disease progresses she is unlikely to have meaningful recovery. Patient receptive to formal palliative medicine consult for continued goals of care and pain management; order placed. For now, patient will be a full code. Disposition: PCP: Dr. Palm Code status: Full code VTE Prophylaxis: on Heparin gtt for now I personally was able to review all current laboratory work and diagnostic images obtained in the ED. Additionally, I was able to review the patients past medication reconciliation and history with direct visualization in the patients chart. This patient was seen in collaboration with Dr. So. Please see his addendum for further details. History of Present Illness Chief Complaint: chest pain Primary Care Provider: Sherwin Obrien MD Ms. Siddiqi is a 72-year-old female that presented to the [facility] today with pleuritic chest pain that she describes as sharp and rates it 7 out of 10. She stated that it hurts to take each breath. She stated that this morning she got up to go to the bathroom but had significant pain in the left side of her chest so she laid back down. She reports that she has been mostly bedbound aside from ambulating to the bathroom due to approximately 10 vertebral fractures that were diagnosed 11/2021. Additionally in November she was noted to have multiple lung nodules that have since decreased in size on her most recent PET scan August 05, 2022. . Patient follows with Dr. Rios from a heme-onc perspectiv she was to start a new regimen as indicated on her EMR however she has not begun this treatment plan as of today . The treatment plan includes Darzalex, Faspro, Revlimid and Decadron & Xgeva. Due to her multiple vertebral fractures she was taken for chest CTA to limit diagnostic testing due to pain and results indicated subsegmental right-sided pulmonary emboli. She was started on a heparin infusion without bolus. Bilateral lower extremity ultrasound pending. Troponin was negative. Echo clare grace. Patient has a PMH that includes: breast cancer s/p bilateral mastectomies, bone marrow cancer (under current treatment), HTN, and GERD. Patient currently denies headache, dizziness, chest pain, palpitations, nausea, vomiting, diarrhea, constipation, visual changes, recent falls or trauma. Patient is lying relatively flat 30 degree angle in her hospital bed in no apparent distress. She is AAO x4 and is able to hold a full meaningful conversation with me at bedside. Patient does not appear dyspneic with conversation however is quite tender in her pleuritic area just to touch. The patient is routinely hesitant to take pain medications which we had a lengthy conversation about regarding her disease progression. See below under assessment and plan for further details. Patient will be admitted for further evaluation and management. Please see A/P for further details. Allergies Allergy/AdvReac Type Severity Reaction Status Date / Time bee venom protein (honey bee) Allergy Unknown edema Verified 09/17/22 15:54 clobetasol Allergy Allergy Verified 09/17/22 15:54 test said was allergic lorazepam AdvReac Unknown syncope Verified 09/17/22 15:54 sulfamethoxazole AdvReac Unknown renal Verified 09/17/22 15:54 [From Bactrim] complications trimethoprim [From Bactrim] AdvReac Unknown renal Verified 09/17/22 15:54 complications Home Medications Medication Instructions Recorded Confirmed Type epinephrine 0.3 mg/0.3 mL 0.3 mg IM UD PRN Allergic Reaction 04/26/22 09/17/22 History injection, auto-injector gabapentin 100 mg capsule 200 mg PO BID 04/26/22 09/17/22 History baclofen 10 mg tablet 10 mg PO BID PRN muscle spasms 06/16/22 09/17/22 History cyanocobalamin (vitamin B-12) 1,000 mcg PO DAILY 06/16/22 09/17/22 History 1,000 mcg tablet (Vitamin B-12) acyclovir 400 mg tablet 400 mg PO AMHS 09/17/22 09/17/22 History dexamethasone 4 mg tablet 4 mg PO WK 09/17/22 09/17/22 History lenalidomide 25 mg capsule 25 mg PO UD 09/17/22 09/17/22 History (Revlimid) prednisone 5 mg tablet 15 mg PO QAM 09/17/22 09/17/22 History prochlorperazine maleate 10 mg 10 mg PO Q6H PRN Nausea 09/17/22 09/17/22 History tablet tramadol 50 mg tablet 50 mg PO Q8H PRN pain,mild 09/17/22 09/17/22 History apixaban 5 mg tablet (Eliquis) 5 mg PO UD #74 tabs 09/20/22 Rx fentanyl 25 mcg/hr transdermal 25 mcg transdermal Q3D #3 ea 09/24/22 Rx patch metoprolol tartrate 25 mg tablet 25 mg PO BID #60 tabs 09/24/22 Rx polyethylene glycol 3350 17 gram 17 g PO DAILY PRN constipation #30 09/24/22 Rx oral powder packet (Miralax) ea Past Med/Surg History Medical History Bone lesion Cancer related pain Counseling regarding advanced directives and goals of care History of breast cancer Hypertension Metastatic breast cancer Multiple lung nodules Palliative care encounter Proteinuria, unspecified Pulmonary embolism Surgical History Hx of cholecystectomy Social History Smoking Status: Never smoker Hx Alcohol Use: No Hx Substance Use: No Preferred Language: Danish Communication Ability: Effective Press Loader Required: No Beliefs That Will Affect Care: Tenriism Tenriism Beliefs: oriental orthodox Current Living Situation: Family Current Living Situation Comment: lives w/ dtr Feels Safe at Home: Yes Assistive Devices: Bedside Commode, Hospital Bed, Walker and Wheelchair Review of Systems Review of Systems: Neuro: (-) Falls, trauma, slurred speech HEENT: (-) CURRY, dizziness, dysphagia, visual or auditory changes CV: (+) right sided pleuritic CP, (-) palpitations, swelling Resp: (+) SOB GI: (-) appetite changes, N/V/D, bowel changes : (-) urinary changes Skin: (-) rashes Psych: (+) anxiety, depression Physical Exam Physical Exam: Neuro: AAOx4, PERRLA, no aphagia, memory changes, CNII-XII g rossly intact HEENT: head normocephalic, moist mucus membranes CV: S1/S2, (-) M/G/R, (-) edema, cap refill < 3 seconds (-) JVD Resp: Lungs CTA in all rico. On 2LNC. tender chest wall to touch GI: Abdomen S/NT/ND, Ax4 bowel sounds, (-) CVA tenderness Musculoskeletal: 5/5 B/L UE strength, 5/5 B/L LE strength. No gait disturbance Skin: (-) rashes , (-) erythema. Psych: euthymic mood Results & Data Results & Data ([facility]) Vital Signs (Past 12 Hours) Vital Signs Temp Pulse Pulse Resp BP BP Pulse Ox 09/17/22 15:00 67 19 96 09/17/22 13:30 63 18 151/74 H 09/17/22 13:00 61 13 156/91 H 09/17/22 12:30 66 16 163/92 H 97 09/17/22 12:11 96 09/17/22 12:01 63 18 154/89 H 97 09/17/22 12:01 97 09/17/22 12:01 36.7 C 63 18 154/98 H 97 O2 Del Method O2 Flow Rate 09/17/22 15:00 09/17/22 13:30 09/17/22 13:00 09/17/22 12:30 09/17/22 12:11 Room Air 09/17/22 12:01 Room Air 09/17/22 12:01 Room Air 0 09/17/22 12:01 Room Air Laboratory Results Short CBC 09/17/22 Range/Units 12:00 WBC 10.14 (4.8-10.8) K/ul Hgb 13.0 (12.0-16.0) g/dl Hct 38.7 (34.1-44.9) % Plt Count 227 (130-400) K/uL BMP 09/17/22 09/17/22 12:00 13:14 Sodium 141 Potassium TNP 4.2 Chloride 103 Carbon Dioxide 32 BUN 15 Creatinine 0.65 Glucose 91 Calcium 10.0 Liver Function 09/17/22 09/17/22 Range/Units 12:00 13:14 Total Bilirubin 0.7 (0.2-1.0) mg/dl AST TNP 14 ALT 18 (7-52) U/L Alkaline Phosphatase 120 H (34-104) U/L Albumin 3.9 (3.4-5.0) gm/dl Diagnostic Findings Chest CTA 09/17/22 12:41 CT angio chest PE protocol CLINICAL HISTORY: Chest pain ,hx of CA and vert comp fx TECHNIQUE: Multidetector row helical CT of the chest was performed with angiographic protocol. Coronal and sagittal reformations were obtained. Coronal and sagittal MIPS were obtained from the axial data set and were submitted for review. Automated dose lowering techniques and/or adjustment according to patient size were utilized for this exam. CT DOSE: 479.20 mGy.cm Comparison: Comparison is made to CT chest 06/16/2022 FINDINGS: Lungs and pleura: Atelectasis versus scarring is seen in the dependent portions of the lungs. Heart and pericardium: There is cardiomegaly without evidence of pericardial effusion. Vessels: There are pulmonary emboli in the segmental level of the right upper and lower lobes. Mediastinum and davy: Numerous mediastinal lymph nodes measure up to 11 mm in diameter. Chest wall and lower neck: Bilateral breast implants are seen. Abdomen: Unremarkable. Bones: Multilevel compression deformities are seen. No evidence of acute fracture. IMPRESSION: 1. Right-sided segmental pulmonary emboli without evidence of right heart stra in. 2. Mediastinal lymphadenopathy is similar in extent to prior exam, likely reactive. 3. Bilateral airspace opacities likely representing atelectasis, superimposed pneumonia cannot be entirely excluded. Follow-up to resolution is recommended. ACT 112: Negative or not required by law. Electronically signed by: Taye Miller M.D. 09/17/2022 2:16 PM Code Status & VTE Plan Code Status Full code in the event of cardiac or respiratory arrest VTE Prophylaxis Plan VTE Prophylaxis will be ordered: Yes Supervising Physician Co-Signing Physician Notes Pt was seen and examined. Agreed with Sari HANKS exam, assessment and plan. 72-year-old female that presented to the ED with pleuritic chest pain that she describes as sharp and rates it 7 out of 10. Described pain is worst with deep breathing. CTA chest showed right-sided segmental pulmonary emboli without evidence of right heart strain. Starting on low dose heparin drip. Will get an echo and doppler of LE extremities. Will monitor closely for bleeding. Continue monitor closely. MD Judah
[2022-09-17] MEDS ORDERED: ACETAMINOPHEN 325 MG TAB PO PRN (15:55)
[2022-09-17] MEDS ORDERED: ALUMINUM/MAGNESIUM SUSP 30 ML UDC PO PRN (15:55)
[2022-09-17] MEDS ORDERED: POLYETHYLENE (MIRALAX) 17 GM PACK PO PRN (15:55)
[2022-09-17] MEDS ORDERED: MAGNESIUM HYDROXIDE SUSP 30 ML UDC PO PRN (15:55)
[2022-09-17] MEDS ORDERED: fentaNYL 25 MCG/HR TDSY TD SCH (16:45)
[2022-09-17] MEDS: GABAPENTIN 100 MG CAP PO SCH (21:41)
[2022-09-17 21:47] LABS: Partial Thromboplastin Time 26.3 Seconds (21.0-31.0)
[2022-09-18] MEDS: CHECK fentaNYL PATCH PLACEMENT SCH ×4 (00:02→23:20)
[2022-09-18] MEDS ORDERED: HEPARIN SOD (PORCINE) 1000 UNIT/ML 10 ML VIAL IV ONE (02:30)
[2022-09-18] MEDS: traMADol HCL 50 MG TABLET PO PRN ×2 (06:13→15:23)
[2022-09-18 06:15] LABS: Hematocrit (blood only) 38.7 % (34.1-44.9); Hemoglobin 12.8 g/dl (12.0-16.0); Mean Corpuscular Hemoglobin 33.4 pg (25.0-34.0); Mean Corpuscular Hgb Conc 33.1 g/dL (32.0-36.0); Mean Platelet Volume 9.8 fL (9.4-12.3); Platelet Count 220 K/uL (130-400); RDW Coefficient of Variation 13.5 % (11.5-14.5); Red Blood Count 3.83 M/uL (3.93-5.22); White Blood Count 9.91 K/ul (4.8-10.8)
[2022-09-18 06:32] LABS: Calcium 9.3 mg/dl (8.5-10.1); Creatinine Clr Calc Pharmacy 62.8 ml/min; Est GFR (African American) 92.3 ml/min; Est GFR (Non-African American) 79.6 ml/min; Magnesium 1.9 mg/dl (1.7-2.4); Potassium 3.6 mmol/L (3.5-5.1)
[2022-09-18] MEDS: predniSONE 5 MG TAB PO SCH (07:36)
--- NOTE | 2022-09-18 07:36 | XRay Report ---
XR chest 1V portable CLINICAL HISTORY: Acute pulmonary emboli. COMPARISON STUDY: Chest CT September 17, 2022. FINDINGS: Lung volumes are noted. Mild bibasilar opacities are present. Cardiomediastinal silhouette is stable. There is no evidence for pulmonary edema. There is no pneumothorax or pleural effusion. IMPRESSION: 1. No change in low lung volumes with bibasilar opacities. 2. No evidence for pulmonary edema. ACT 112: Negative or not required by law. Electronically signed by: Naveen Freedman M.D. 09/18/2022 7:33 AM
--- NOTE | 2022-09-18 07:41 | Ultrasound Report ---
BILATERAL LOWER EXTREMITY VENOUS DOPPLER HISTORY: Bilateral pulmonary emboli. Suspected DVT. COMPARISON STUDY: None. FINDINGS: Nonocclusive deep vein thrombosis seen within the left superficial femoral and popliteal ve ins. There is also thrombus seen within the left posterior tibial vein. There is thrombus seen within the mid right peroneal vein. No right lower extremity DVT seen above the knee. IMPRESSION: Bilateral lower extremity deep vein thrombosis as described above. ACT 112: Negative or not required by law. Electronically signed by: James Gilman M.D. 09/18/2022 7:40 AM
[2022-09-18] MEDS ORDERED: ACETAMINOPHEN 500 MG TAB PO ONE (08:19)
[2022-09-18] MEDS: GABAPENTIN 100 MG CAP PO SCH ×2 (08:30→20:56)
[2022-09-18] MEDS: CYANOCOBALAMIN (B-12) 500 MCG TABLET PO SCH (08:30)
[2022-09-18 09:18] LABS: Partial Thromboplastin Ratio 0.9; Partial Thromboplastin Time 25.2 Seconds (21.0-31.0)
[2022-09-18] MEDS: HEPARIN SODIUM/DEXTROSE 25,000 UNITS/500 ML BAG IV SCH (10:00)
[2022-09-18] MEDS: ONDANSETRON INJ 2 MG/ML 2 ML VIAL IV PRN (11:06)
--- NOTE | 2022-09-18 14:54 | Electrocardiogram Report ---
Test Reason : Blood Pressure : / mmHG Vent. Rate : 072 BPM Atrial Rate : 072 BPM P-R Int : 128 ms QRS Dur : 080 ms QT Int : 384 ms P-R-T Axes : 068 071 086 degrees QTc Int : 420 ms Normal sinus rhythm Nonspecific ST abnormality Abnormal ECG When compared with ECG of 17-SEP-2022 11:55, No significant change was found Confirmed by Tony Ang ([id number]) on 09/18/2022 2:54:33 PM Referred By: REFERRED SELF Confirmed By:Tony Ang
[2022-09-18 16:59] LABS: Partial Thromboplastin Ratio 1.9
[2022-09-18 17:29] LABS: Partial Thromboplastin Time 51.7 Seconds (21.0-31.0)
--- NOTE | 2022-09-18 17:41 | Hospitalist Progress Note ---
Date of Service September 18, 2022 Assessment & Plan (1) Pulmonary embolism: (2) DVT (deep venous thrombosis): (3) Chest pain: (4) History of breast cancer: (5) Bone lesion: Plan 72-year-old with acute shortness of breath; found to have right lung segmental PE. On heparin drip. Intractable pain related to bone cancer. Started on fentanyl patch; patient is opioid kaveh. Pulmonary Embolism: DVT Present on admission with SOB and pleuritic chest pain Chest CTA showed right-sided segmental pulmonary emboli US Venous doppler bilateral LE showed Bilateral lower extremity deep vein thrombosis ECHO showed normal LV wall motion with EF 55-60%. No RV strain noted on echo Continue IV heparin drip Continue monitor for any abnormal bleeding Continue monitor closely History of Breast Cancer: -s/p bilateral mastectomies -Follows with Dr. Vaughn -11/2021 multiple lung nodules found -PET scan 08/05/2022 noted reducible size Intractable pain: Bone metastasis: -Approximately 10 fractured vertebrae found 11/2021 -Follows with Dr. Vaughn -Patient has been ordered a new regimen including Revlimid, Decadron, aspirin, acyclovir, however she has not started this but it is listed on her med rec. -Received IV fentanyl in ED with relief. Patient resistant to morphine, Dilaudid, oxycodone as she states she has felt dizzy before taking these. She was starting on low dose Fentanyl Patch and tolerated Goals of Care: -Lengthy conversation held with patient regarding her overall goals of care. She is slated to see Dr. Shelli Cota sometime in September for an initial palliative care encounter. She was tearful throughout our conversation and I did ask her where she is emotionally on her cancer journey. She stated "I have to sometime, but I am not suicidal". "My kids think that I should be done doing jumping jacks at this point, they do not understand". Patient states she has 2 children that do live locally. She did bring up medical marijuana and has said that her multiple friends have told her that she should go through that process but she is not quite sure about it. I did express positive response from numerous patients with bone cancer and that they have different modes of administration (lotion, tincture, etc.). When we discussed CODE STATUS she did hesitate and stated that she was not really ready to make any decisions but does understand that as her disease progresses she is unlikely to have meaningful recovery. Patient receptive to formal palliative medicine consult for continued goals of care and pain management; order placed. For now, patient will be a full code. Disposition: PCP: Dr. Palm Code status: Full code VTE Prophylaxis: on Heparin gtt for now Admission and Anticipated Discharge Date Admission Date: September 17, 2022 Subjective Pt was seen and examined for follow of PE/DVT Lying in bed with no acute distress She said that she did not sleep well last night she said that she continue to have pleuritic chest pain, but slightly improves compare to yesterday Denies any chest pain, palpitation, dizziness and fever Review of Systems Review of Systems: All systems reviewed & are unremarkable except as noted in Subjective Physical Exam Physical Exam: General- No acute distress Head- atraumatic Eyes- PERRL, EOMI, ENT- oropharynx clear Neck- supple, no JVD Lungs- clear to auscultation Heart- regular rhythm; no murmur Abdomen- normal bowel sounds, soft, nontender Extremities- no calf tenderness Neuro- alert, oriented x 3; PERRL, EOMI; no facial palsy; no dysarthria Skin- warm & dry Results & Data Results & [facility] ([facility]) Vital Signs (Past 12 Hours) Vital Signs Temp Pulse Pulse Resp BP Pulse Ox O2 Del Method 09/18/22 16:00 83 09/18/22 15:59 36.6 C 72 18 122/75 93 Room Air 09/18/22 08:00 75 09/18/22 08:00 Room Air 09/18/22 11:32 36.5 C 69 18 126/80 93 Room Air 09/18/22 08:15 36.3 C L 74 16 134/84 93 Room Air 09/18/22 06:36 82
[2022-09-19 06:46] LABS: Hematocrit (blood only) 36.8 % (34.1-44.9); Hemoglobin 12.5 g/dl (12.0-16.0); Mean Corpuscular Hemoglobin 33.2 pg (25.0-34.0); Mean Corpuscular Volume 97.6 fL (80.0-100.0); Mean Platelet Volume 9.7 fL (9.4-12.3); Platelet Count 239 K/uL (130-400); RDW Coefficient of Variation 13.4 % (11.5-14.5); RDW Standard Deviation 48.3 fL (36.4-46.3); Red Blood Count 3.77 M/uL (3.93-5.22); White Blood Count 9.99 K/ul (4.8-10.8)
[2022-09-19 07:26] LABS: Partial Thromboplastin Time 55.3 Seconds (21.0-31.0)
[2022-09-19] MEDS: CHECK fentaNYL PATCH PLACEMENT SCH ×3 (07:52→23:07)
[2022-09-19] MEDS: ONDANSETRON INJ 2 MG/ML 2 ML VIAL IV PRN (07:52)
[2022-09-19] MEDS: predniSONE 5 MG TAB PO SCH (09:11)
[2022-09-19] MEDS: GABAPENTIN 100 MG CAP PO SCH ×2 (09:11→20:22)
[2022-09-19] MEDS: CYANOCOBALAMIN (B-12) 500 MCG TABLET PO SCH (09:11)
[2022-09-19] MEDS: HEPARIN SODIUM/DEXTROSE 25,000 UNITS/500 ML BAG IV SCH (09:15)
[2022-09-19] MEDS: METOPROLOL TARTRATE 25 MG TAB PO SCH ×2 (12:18→20:23)
--- NOTE | 2022-09-19 17:07 | Hospitalist Progress Note ---
Date of Service September 19, 2022 Assessment & Plan (1) Pulmonary embolism: (2) DVT (deep venous thrombosis): (3) Chest pain: (4) History of breast cancer: (5) Bone lesion: Plan 72-year-old with acute shortness of breath; found to have right lung segmental PE. On heparin drip. Intractable pain related to bone cancer. Started on fentanyl patch; patient is opioid kaveh. Pulmonary Embolism: DVT Present on admission with SOB and pleuritic chest pain Chest CTA showed right-sided segmental pulmonary emboli US Venous doppler bilateral LE showed Bilateral lower extremity deep vein thrombosis ECHO showed normal LV wall motion with EF 55-60%. No RV strain noted on echo Continue IV heparin drip Continue monitor for any abnormal bleeding Discussed choice of abx btw DOAC and Warfarin in details Pt will prefer to transition to eliquis Will check escoto of eliquis tomorrow Continue monitor closely Paroxysmal Afib telemonitor showed brief episode of afib Spontaneously converted back to NSR ECHO showed normal LV wall motion with EF 55-60%. Will start on Metoprolol 12.5 mg BID Continue monitor History of Breast Cancer: -s/p bilateral mastectomies -Follows with Dr. Vaughn -11/2021 multiple lung nodules found -PET scan 08/05/2022 noted reducible size Intractable pain: Bone metastasis: -Approximately 10 fractured vertebrae found 11/2021 -Follows with Dr. Vaughn -Patient has been ordered a new regimen including Revlimid, Decadron, aspirin, acyclovir, however she has not started this but it is listed on her med rec. -Received IV fentanyl in ED with relief. Patient resistant to morphine, Dilaudid, oxycodone as she states she has felt dizzy before taking these. - Continue Fentanyl Patch while in the hospital and tolerated Goals of Care: -Lengthy conversation held with patient regarding her overall goals of care. She is slated to see Dr. Shelli Cota sometime in September for an initial palliative care encounter. She was tearful throughout our conversation and I did ask her where she is emotionally on her cancer journey. She stated "I have to sometime, but I am not suicidal". "My kids think that I should be done doing jumping jacks at this point, they do not understand". Patient states she has 2 children that do live locally. She did bring up medical marijuana and has said that her multiple friends have told her that she should go through that process but she is not quite sure about it. I did express positive response from numerous patients with bone cancer and that they have different modes of administration (lotion, tincture, etc.). When we discussed CODE STATUS she did hesitate and stated that she was not really ready to make any decisions but does understand that as her disease progresses she is unlikely to have meaningful recovery. Patient receptive to formal palliative medicine consult for continued goals of care and pain management; order placed. For now, patient will be a full code. Disposition: PCP: Dr. Palm Code status: Full code VTE Prophylaxis: on Heparin gtt for now Admission and Anticipated Discharge Date Admission Date: September 17, 2022 Subjective Pt was seen and examined for follow of PE/DVT Lying in bed with no acute distress She said that her pleuritic chest pain improves Pt had a brief episode of Afib, then converted back to NSR Denies any chest pain, palpitation, dizziness and fever Review of Systems Review of Systems: All systems reviewed & are unremarkable except as noted in Subjective Physical Exam Physical Exam: General- No acute distress Head- atraumatic Eyes- PERRL, EOMI, ENT- oropharynx clear Neck- supple, no JVD Lungs- clear to auscultation Heart- regular rhythm; no murmur Abdomen- normal bowel sounds, soft, nontender Extremities- no calf tenderness Neuro- alert, oriented x 3; PERRL, EOMI; no facial palsy; no dysarthria Skin- warm & dry Results & Data Results & Data ([facility]) Vital Signs (Past 12 Hours) Vital Signs Temp Pulse Pulse Resp BP Pulse Ox O2 Del Method 09/19/22 15:28 36.6 C 74 18 127/80 94 Room Air 09/19/22 08:00 67 09/19/22 08:00 Room Air 09/19/22 07:14 36.4 C L 70 18 138/85 96 Room Air
[2022-09-19] MEDS: traMADol HCL 50 MG TABLET PO PRN (18:35)
[2022-09-20 05:17] LABS: BUN Creatinine Ratio 30.1 (10-20); Calcium 9.6 mg/dl (8.5-10.1); Creatinine Clr Calc Pharmacy 56.4 ml/min; Est GFR (African American) 81.7 ml/min; Est GFR (Non-African American) 70.4 ml/min; Magnesium 1.9 mg/dl (1.7-2.4); Potassium 4.1 mmol/L (3.5-5.1)
[2022-09-20 05:30] LABS: Partial Thromboplastin Time 54.4 Seconds (21.0-31.0)
[2022-09-20] MEDS: predniSONE 5 MG TAB PO SCH (08:42)
[2022-09-20] MEDS: CHECK fentaNYL PATCH PLACEMENT SCH ×3 (08:42→23:10)
[2022-09-20] MEDS: METOPROLOL TARTRATE 25 MG TAB PO SCH ×2 (08:42→20:48)
[2022-09-20] MEDS: GABAPENTIN 100 MG CAP PO SCH ×2 (08:42→20:49)
[2022-09-20] MEDS: CYANOCOBALAMIN (B-12) 500 MCG TABLET PO SCH (08:42)
[2022-09-20] MEDS: HEPARIN SODIUM/DEXTROSE 25,000 UNITS/500 ML BAG IV SCH (08:44)
[2022-09-20] MEDS: traMADol HCL 50 MG TABLET PO PRN ×2 (08:44→17:55)
--- NOTE | 2022-09-20 09:08 | Palliative Care Consultation ---
Date of Consultation September 20, 2022 Assessment & Plan (1) Palliative care encounter: Met with pt/family. Provided overview of Palliative Medicine, a subspecialty that provides specialized medical care for people living with a serious illness by offering a focus on quality of life. Palliative Medicine is often conflated with hospice: I advised patient/family that Palliative and hospice can be partners but we are not the same. It is important to understand the difference so that we may be informed, and not afraid. Palliative Medicine works to improve QOL through reduction of symptom burden/more control over their illness, for both the patient and family. Palliative medicine clinicians are board certified, specially-trained and another member of the patient's medical care team. We often provide an extra layer of support because our care is based on the needs of the patient, not the prognosis; as such, it's appropriate at any age/advancing stage of a serious illness and can be provided along with curative treatment. Palliative Medicine clinicians are also trained in advanced communication methodologies, to facilitate complex discussions about advanced illness planning, which are needed to help assure that the treatment choices match the patient's goals, aka delivering Goal Concordant care. Finally, we discussed that hospice is a visiting nurse service that focuses on care delivered at the very end of life for patients with terminal illness, with life expectancy less than 6 month. (2) Cancer related pain: Patient feels the medical customer service representative transdermal fentanyl patch is currently helping with her pain relief but does not want any further increases or dose modifications. She continues to use tramadol intermittently as well as baclofen. She feels that she is more amenable to revisiting the option of taking medication for dystonia which she feels may be contributing to her current pain issues. There is concern expressed by staff about patient's reported home and responsible opioid management. For this reason, I have advised the primary team that I would only discharge patient home with enough opioid supply to make it to her appointment for October [address] Zhang at [facility], and also engage [facility] at home for ongoing medication management/oversight, to assist with any caregiver burden and burnout that may be evolving. (3) Counseling regarding advanced directives and goals of care: ACP 30min face to face: Mary Kay spoke at length about the complexities and family dynamics that she struggles with along with her breast cancer related issues. She notes that she has 3 adult children, 1 of whom she lives with (daughter, son-in-law + family), another daughter with? Brain injury, and a son who lives in [facility]. She states that they all have very strong opinions although her daughter with a brain injury and overwhelmed and becomes very agitated with any discussions about patient's illness or undertaken therefore she tends to avoid discussing anything with this daughter. Patient states that she has been struggling to manage her needs. Her dystonia is a longstanding problem of over 30 years. It is unpredictable but can be debilitating when it flares. She is often not able to meet her own needs including ADLs. When I asked patient what her top 2-3 goals would be, she replied that she wants to try to live as long as she can, feeling stronger and able to be more independent at home. We discussed what steps and interventions would be needed to try and optimize her chances to achieve these goals. She is willing to pursue further cancer directed therapies. She does not wish to pursue any less aggressive interventions for her cancer at this time. She is also willing now to revisit the options to treat her dystonia better to bring the symptoms under control so that she may gain some strength. She advised me earlier today as well as case management she feels that she would benefit for some inpatient rehab. She also shared with nursing, however, that she feels her daughter and family need a break from her and she is grateful to be in the hospital for a while. I advised patient that physical therapy would come to evaluate her to make a determination of whether or not she meets the criteria necessary to qualify for subacute rehab admission. Once that evaluation is done, care management can help find placement if she qualifies. If she does not qualify for rehab discharge options then return to going back home with additional possible home health support versus seeking long-term care placement. Patient is very opposed to long-term care placement at this time. We discussed CODE STATUS. Patient at this time wants every chance she can have to live as long as possible. She feels that she can tolerate CPR including chest compressions, defibrillation or mechanical ventilation. We discussed CPR survival statistics: only about 10% of patients who have glj-jc-biacgfyd sudden cardiac arrest survive to hospital discharge, with many survivors having neurologic impairment. This rate is even lower among patients with serious coexisting conditions, ie chance of survival to hospital discharge for in- hospital CPR in older people is low to moderate (15%) and decreases with age, comorbidities, performance status and frailty: for pts > 70 yo, more than half of the patients who initially survived resuscitation in the hospital before hospital discharge. The pooled survival to discharge after in-hospital CPR was 18% for patients between 70 and 79 years old, 15% for patients between 80 and 89 years old and 11% for patients of 90 years and older. (Ousmane RAHMANY, Augustus LJ, Sanam F, et al. Trends in short- and long-term survival among asl-dt-spedzfke cardiac arrest patients alive at hospital arrival. Circulation 2014;130:1883- 1890. AND Isdangelo C, Keri T, Sofia R, et al. Performance of clinical risk scores to predict mortality and neurological outcome in cardiac arrest patients. Resuscitation 2019;136:21-29.) Patient wishes to remain full code. She is hopeful that some rehab can be approved so she can try to improve. In part she is also looking for an option of discharge that would give her family some respite. If she does not qualify for rehab I would strongly recommend adding [facility] at home to her plan of care. Patient has a palliative medicine appointment with Dr. Ana Zhang[facility] on October 04 and she plans to keep this appointment even if she is a rehab. She feels that it would help for her family to care all of the issues she is dealing with/prognosis/etc., and how this would be better dealt with in a less stressful situation than the hospital admission. I advised her that this is something that can be done over a couple of appointments in outpatient palliative medicine clinic and this is something she should plan on first discussing alone with her private palliative medicine provider and then developing plan together with them but how to approach family discussions. I reiterated to patient that we want her to be in charge of her care and want to empower her with mobility to feel confident the decision she is making for herself. If she is feeling pressured or overwhelmed by family members that we are here to help with this conversation so that the care she wants and needs is the care that is given to her i.e. goal concordant care. She is comfortable on her current regimen for pain management and like to continue this until she is seen by palliative medicine outpatient appointment. I advised her I would share today's note with Dr. Zhang to assure smooth transition of care. Patient expressed appreciation and approval for this. (4) Pulmonary embolism: Currently under treatment (5) Metastatic breast cancer: Patient has metastatic breast cancer with mets to bone. She has multiple compression fractures. She states that she has been offered an infusion therapy to improve bone integrity (? Zometa) and she plans to pursue this through her outpatient oncology at [facility]. She also notes that she wants to continue any and all cancer directed therapies which may help prolong her life so long as she is still able to enjoy her life, her time with family and that the quality is not diminished. Her general style of coping has been that of avoidance, noting that if it gets too unpleasant or overwhelming she simply refuses to consider dealing with it anymore and chills of the side. She recognizes that this is not the most helpful approach to managing stress in her life. She feels isolated at times and has some regrets about decisions she made in her life talib with financial planning, noting she does not have a snf/never trusted the [employer]/never had snf planning advice. We explored some of her concerns about advanced illness and CODE STATUS. I asked her where she saw herself at the end of her life if things were truly felt to be in an end-of-life process. She replied she would like to be home with her family and does not want to on machines or here in the hospital. I advised her that she should keep an ongoing dialogue with her providers so that she becomes alerted to any CPR may no longer be a significant or helpful intervention for her. At this time it may still offer her some meaningful benefit to help continue the goals she wishes to achieve i.e. continuing cancer directed treatment. I did advise her that at some point though CPR will no longer offer a meaningful benefit at that point I would significantly and strongly encourage her to consider changing CODE STATUS to DNR/DNI with transition and focus on comfort and quality of life. She verbalized understanding and was in agreement with this recommendation. All questions were answered to her apparent satisfaction. She is extremely appreciative of the time spent discussing all of the above issues with her at the bedside today. (6) Bone lesion: Plan Continue transdermal fentanyl for cancer-related pain management at this time. Continue using tramadol as needed for breakthrough pain as patient is comfortable on this regimen and does not wish to change. Patient would like to remain a full code and continue all cancer directed therapies and interventions available to her. Patient is hoping she can be discharged to rehab. PT evaluation has been requested. I suspect a small that there is some element of caregiver burnout happening at home and the patient is seeking a respite type of placement as well. The patient does not qualify for rehab and I strongly recommend she be discharged home with the addition of [facility] at home, for ongoing assistance with medication management and oversight, reducing caregiver burden and strain, and home-based physical therapy services. I discussed this with the primary team as well. Patient has no other acute palliative medicine issues at this time. We will fol low more peripherally but remain available for general engagement if needed, please do not hesitate to call or page me should this be needed. History of Present Illness Reason for Consultation: "pain management/goals - vertebral fx bone ca" Attending Physician: Dom So MD History of Present Illness 72yo female admitted 09/17/22 with acute onset dyspnea, Ed workup revealed Right segmental PE, for which she has been started on heparin gtt. it is noted she also has severe/intractable cancer related pain d/t met breast ca to bone. She was started on fentanyl patch, after reporting in ED "Patient resistant to morphine, Dilaudid, oxycodone as she states she has felt dizzy before taking these. She was starting on low dose Fentanyl Patch and tolerated." She was given IV fentanyl in ED with relief. PMH: T2DM; HTN; GERD; obesity; IBS; RLS; lichen sclerosis, rosacea, OA, recent history of left breast cancer stage 0 status post bilateral mastectomy. Of note, she has a family hx signif for cancer: maternal cousin has breast cancer, daughter has breast cancer, brother has cancer, maternal grandfather had colon cancer, brother has stroke, another brother has schizophrenia, mother has heart disorder. Eloise is seen bedside, there is no family present. She is resting supine with her head of bed slightly elevated at the time of my visit. She notes that she started to feel some relief with the transdermal fentanyl patch. She also adds very quickly that she has issues with using opioids and worries often about addiction. She has been using tramadol but that has not been providing any substantial relief. She has also been given baclofen to assist with spasms which she attributes to her longstanding history (30 years +) of dystonia. She notes that in prior years, she has been offered treatment for dystonia which would be parkinsonian medications but has always refused out of fear and conviction that she did not want to take a lot of medications because ultimately they would stop working. She tells me she is not willing to reconsider that perspective. Allergies Allergy/AdvReac Type Severity Reaction Status Date / Time bee venom protein (honey bee) Allergy Unknown edema Verified 09/17/22 15:54 clobetasol Allergy Allergy Verified 09/17/22 15:54 test said was allergic lorazepam AdvReac Unknown syncope Verified 09/17/22 15:54 sulfamethoxazole AdvReac Unknown renal Verified 09/17/22 15:54 [From Bactrim] complications trimethoprim [From Bactrim] AdvReac Unknown renal Verified 09/17/22 15:54 complications Home Medications Medication Instructions Recorded Confirmed Type epinephrine 0.3 mg/0.3 mL 0.3 mg IM UD PRN Allergic Reaction 04/26/22 09/17/22 History injection, auto-injector gabapentin 100 mg capsule 200 mg PO BID 04/26/22 09/17/22 History baclofen 10 mg tablet 10 mg PO BID PRN muscle spasms 06/16/22 09/17/22 History cyanocobalamin (vitamin B-12) 1,000 mcg PO DAILY 06/16/22 09/17/22 History 1,000 mcg tablet (Vitamin B-12) doxycycline hyclate 50 mg capsule 50 mg PO QAM 06/16/22 09/17/22 History acyclovir 400 mg tablet 400 mg PO AMHS 09/17/22 09/17/22 History aspirin 81 mg tablet,delayed 81 mg PO QAM 09/17/22 09/17/22 History release dexamethasone 4 mg tablet 4 mg PO WK 09/17/22 09/17/22 History lenalidomide 25 mg capsule 25 mg PO UD 09/17/22 09/17/22 History (Revlimid) prednisone 5 mg tablet 15 mg PO QAM 09/17/22 09/17/22 History prochlorperazine maleate 10 mg 10 mg PO Q6H PRN Nausea 09/17/22 09/17/22 History tablet tramadol 50 mg tablet 50 mg PO Q8H PRN pain,mild 09/17/22 09/17/22 History apixaban 5 mg tablet (Eliquis) 5 mg PO UD #74 tabs 09/20/22 Rx Patient History Medical History (Updated 09/20/22 @ 09:20 by Eve Arrieta DNP) Bone lesion Cancer related pain Counseling regarding advanced directives and goals of care History of breast cancer Hypertension Metastatic breast cancer Multiple lung nodules Palliative care encounter Proteinuria, unspecified Pulmonary embolism Surgical History Hx of cholecystectomy Social History Smoking Status: Never smoker Hx Alcohol Use: No Hx Substance Use: No Preferred Language: Hebrew Communication Ability: Effective Shovel Logger Required: No Beliefs That Will Affect Care: Episcopalian Episcopalian Beliefs: baptism Current Living Situation: Family Current Living Situation Comment: lives w/ dtr Feels Safe at Home: Yes Safety Concerns: Feels Safe At This Time Assistive Devices: Bedside Commode, Hospital Bed, Walker and Wheelchair Review of Systems Review of Systems: All systems reviewed & are unremarkable except as noted in Subjective Physical Exam Physical Exam: Older female, appears slightly younger than stated age, resting supine in bed at the time of my visit with no acute distress noted. There is mild bitemporal wasting. Pupils are equal round and reactive to light. Extraocular movements are intact. Neck is supple with no stridor and no thyromegaly. Dentition is fair with some dental disease noted. Breathing is peaceful with no increased effort, no conversational dyspnea, no use of accessory muscles. Overall clear with no wheezing noted. S1-S2, no JVD. Abdomen is soft, nontender, bowel sounds present. Generalized tenderness along her back lumbar to sacral region, + paravertebral spasms noted. Strength overall with generalized weakness. Skin color is pink, warm, few scattered ecchymoses noted. Patient is awake alert and oriented x3. She is appropriate, conversant and pleasant throughout her intervention. It is noted that she is quite hard of hearing and prefers that we speak from her right side. Results & Data ([facility]) Vital Signs (Past 12 Hours) Vital Signs Temp Pulse Pulse Resp BP Pulse Ox O2 Del Method 09/20/22 07:15 36.5 C 56 L 17 121/74 93 Room Air 09/20/22 03:00 36.3 C L 58 L 18 127/68 94 Room Air 09/19/22 23:00 36.5 C 66 18 130/83 92 Room Air 09/19/22 23:00 66 Laboratory Results Data reviewed Diagnostic Findings Data reviewed, see HPI PG Care Time/CCT Total # of Minutes Spent Total Time Spent: 75 Total Time Spent with Patient: Total time spent is greater than 50% in coordination of care (as documented) at patient's floor/unit and/or counseling patient: I spent 75 minutes overall addressing this case: 15 in medical data review/discussion with referring provider(s) and/or preparation for the visit; information about her BrCca is not easily locatable, I do not have EPIC access/I do not know her pathology or results of any bone biopsies, as such i did not spend too much time diving into her prognosis at this visit. 15 in direct interaction with the patient 30 Advance Care Planning/Goals of Care discussions as detailed above in note (must be >16min) 10 in subsequent review and synthesis of assessment and plan 10 in communicating with other providers regarding the patient's case: Primary team, care management, nursing. Prolonged Care Time Prolonged Care Time: Yes Advanced Care Planning 98511 Advanced Care Planning 30 [place] [address] Inpt Consult Level 5 Patient Type New History Comprehensive Exam Detailed Medical Decision Making High Complexity Diagnoses Palliative care encounter Z51.5 Cancer related pain G89.3 Counseling regarding advanced directives and goals of care Z71.89 Pulmonary embolism I26.99 Metastatic breast cancer C50.919 Bone lesion M89.9 Additional Codes Prolonged Care Time - Prolonged Care Time: Yes ([id number]) Advanced Care Planning - 62403 Advanced Care Planning 30 Min: 00725 Advanced Care Planning 30 Min ([id number])
[2022-09-20] MEDS: fentaNYL 25 MCG/HR TDSY TD SCH (16:48)
--- NOTE | 2022-09-20 18:26 | Hospitalist Progress Note ---
Date of Service September 20, 2022 Assessment & Plan (1) Pulmonary embolism: (2) DVT (deep venous thrombosis): (3) Chest pain: (4) History of breast cancer: (5) Bone lesion: Plan 72-year-old with acute shortness of breath; found to have right lung segmental PE. On heparin drip. Intractable pain related to bone cancer. Started on fentanyl patch; patient is opioid kaveh. Pulmonary Embolism: DVT Present on admission with SOB and pleuritic chest pain Chest CTA showed right-sided segmental pulmonary emboli US Venous doppler bilateral LE showed Bilateral lower extremity deep vein thrombosis ECHO showed normal LV wall motion with EF 55-60%. No RV strain noted on echo Current on IV heparin drip Continue monitor for any abnormal bleeding case discussed with Dr. Vaughn Discussed choice of abx btw DOAC and Warfarin in details Pt will prefer to transition to eliquis' I checked the escoto and it will be $47 per month. Pt is ok with that Will transition to Eliquis tonight Paroxysmal Afib telemonitor showed brief episode of afib Spontaneously converted back to NSR ECHO showed normal LV wall motion with EF 55-60%. Coninue Metoprolol 12.5 mg BID Continue monitor History of Breast Cancer: -s/p bilateral mastectomies -Follows with Dr. Vaughn -11/2021 multiple lung nodules found -PET scan 08/05/2022 noted reducible size Intractable pain: Bone metastasis: -Approximately 10 fractured vertebrae found 11/2021 -Follows with Dr. Vaughn -Patient has been ordered a new regimen including Revlimid, Decadron, aspirin, acyclovir, however she has not started this but it is listed on her med rec. -Received IV fentanyl in ED with relief. Patient resistant to morphine, Dilaudid, oxycodone as she states she has felt dizzy before taking these. She was ordered Fentanyl 12.5 mcg, but she had fentanyl 25mcg placed that She was able to tolerate the fentanyl 25mcg Continue Fentanyl Patch while in the hospital and tolerated palliative care on board Pt would like to go to rehab PT/OT eval Goals of Care: -Lengthy conversation held with patient regarding her overall goals of care. She is slated to see Dr. Shelli Cota sometime in September for an initial palliative care encounter. She was tearful throughout our conversation and I did ask her where she is emotionally on her cancer journey. She stated "I have to sometime, but I am not suicidal". "My kids think that I should be done doing jumping jacks at this point, they do not understand". Patient states she has 2 children that do live locally. She did bring up medical marijuana and has said that her multiple friends have told her that she should go through that process but she is not quite sure about it. I did express positive response from numerous patients with bone cancer and that they have different modes of administration (lotion, tincture, etc.). When we discussed CODE STATUS she did hesitate and stated that she was not really ready to make any decisions but does understand that as her disease progresses she is unlikely to have meaningful recovery. Patient receptive to formal palliative medicine consult for continued goals of care and pain management; order placed. For now, patient will be a full code. Disposition: PCP: Dr. Palm Code status: Full code VTE Prophylaxis: on Heparin gtt for now Admission and Anticipated Discharge Date Admission Date: September 17, 2022 Subjective Pt was seen and examined for follow of PE/DVT Lying in bed with no acute distress with grand daughter at bedside She said that her pleuritic chest pain improves significantly No arrhythmia on tele monitor Pt was supposed to start fentanyl 12.5 mcg, but she was placed on Fentanyl 25 mcg She was able to tolerate the fentanyl 25mcg Denies any chest pain, palpitation, dizziness and fever Review of Systems Review of Systems: All systems reviewed & are unremarkable except as noted in Subjective Physical Exam Physical Exam: General- No acute distress Head- atraumatic Eyes- PERRL, EOMI, ENT- oropharynx clear Neck- supple, no JVD Lungs- clear to auscultation Heart- regular rhythm; no murmur Abdomen- normal bowel sounds, soft, nontender Extremities- no calf tenderness Neuro- alert, oriented x 3; PERRL, EOMI; no facial palsy; no dysarthria Skin- warm & dry Results & Data Results & Data ([facility]) Vital Signs (Past 12 Hours) Vital Signs Temp Pulse Pulse Resp BP Pulse Ox O2 Del Method 09/20/22 15:32 36.5 C 61 18 115/73 94 Room Air 09/20/22 15:25 63 09/20/22 11:04 36.8 C 62 18 115/68 97 Room Air 09/20/22 08:00 60 09/20/22 08:00 Room Air 09/20/22 07:15 36.5 C 56 L 17 121/74 93 Room Air
--- NOTE | 2022-09-20 18:44 | Electrocardiogram Report ---
Test Reason : Blood Pressure : / mmHG Vent. Rate : 067 BPM Atrial Rate : 067 BPM P-R Int : 128 ms QRS Dur : 082 ms QT Int : 386 ms P-R-T Axes : 055 059 069 degrees QTc Int : 407 ms Sinus rhythm with Premature supraventricular complexes Otherwise normal ECG When compared with ECG of 18-SEP-2022 06:02, Premature supraventricular complexes are now Present Confirmed by Xiang Cee ([id number]) on 09/20/2022 6:43:56 PM Referred By: REFERRED SELF Confirmed By:Otto Cee
--- NOTE | 2022-09-20 18:46 | Electrocardiogram Report ---
Test Reason : Blood Pressure : / mmHG Vent. Rate : 075 BPM Atrial Rate : 075 BPM P-R Int : 132 ms QRS Dur : 080 ms QT Int : 318 ms P-R-T Axes : 053 062 069 degrees QTc Int : 355 ms Sinus rhythm with PACs Nonspecific ST abnormality Abnormal ECG When compared with ECG of 19-SEP-2022 09:20, (unconfirmed) Sinus rhythm has replaced Atrial fibrillation Vent. rate has decreased BY 84 BPM T wave inversion no longer evident in Inferior leads T wave inversion less evident in Anterior leads Confirmed by Xiang Cee ([id number]) on 09/20/2022 6:45:38 PM Referred By: REFERRED SELF Confirmed By:Otto Cee
--- NOTE | 2022-09-20 18:53 | Electrocardiogram Report ---
Test Reason : Blood Pressure : / mmHG Vent. Rate : 159 BPM Atrial Rate : 394 BPM P-R Int : 000 ms QRS Dur : 082 ms QT Int : 260 ms P-R-T Axes : 000 062 232 degrees QTc Int : 422 ms Atrial fibrillation with rapid ventricular response Abnormal ECG Confirmed by Xiang Cee ([id number]) on 09/20/2022 6:52:44 PM Referred By: REFERRED SELF Confirmed By:Otto Cee
[2022-09-20] MEDS: BACLOFEN 10 MG TAB PO PRN (20:57)
[2022-09-20] MEDS: APIXABAN 5 MG TABLET PO SCH (21:50)
[2022-09-21] MEDS: traMADol HCL 50 MG TABLET PO PRN (03:35)
[2022-09-21 05:08] LABS: Partial Thromboplastin Ratio 0.8; Partial Thromboplastin Time 21.1 Seconds (21.0-31.0)
[2022-09-21] MEDS: CHECK fentaNYL PATCH PLACEMENT SCH ×3 (08:20→23:34)
--- NOTE | 2022-09-21 08:30 | CT Scan Report ---
CT hip LT wo con CLINICAL HISTORY: r/o hematoma, Lt groin bruise ? Collection TECHNIQUE: Multidetector row helical CT of the left hip was performed without intravenous contrast. C oronal and sagittal reformations were obtained. Automated dose lowering techniques and/or adjustment according to patient size were utilized for this examination. CT DOSE: 534.96 mGy.cm Comparison: Comparison is made to CT abdomen pelvis 06/16/2022 FINDINGS: The osseous structures are without fracture or dislocation. The joint spaces are maintained. No joint effusion is seen. Hyperdense collection in the anterior left groin site of concern measuring 4.0 x 1.4 cm compatible with hematoma. No drainable fluid collection is seen. IMPRESSION: Soft tissue hematoma in the groin at the site of interest without underlying bony abnormality. ACT 112: Negative or not required by law. Electronically signed by: Taye Miller M.D. 09/21/2022 8:28 AM
[2022-09-21] MEDS: ONDANSETRON INJ 2 MG/ML 2 ML VIAL IV PRN (08:39)
[2022-09-21 09:09] LABS: Hematocrit (blood only) 40.5 % (34.1-44.9); Hemoglobin 13.6 g/dl (12.0-16.0); Mean Corpuscular Hemoglobin 34.1 pg (25.0-34.0); Mean Corpuscular Hgb Conc 33.6 g/dL (32.0-36.0); Mean Corpuscular Volume 101.5 fL (80.0-100.0); Mean Platelet Volume 9.6 fL (9.4-12.3); Platelet Count 219 K/uL (130-400); RDW Coefficient of Variation 13.6 % (11.5-14.5); RDW Standard Deviation 50.5 fL (36.4-46.3); Red Blood Count 3.99 M/uL (3.93-5.22)
[2022-09-21] MEDS: BACLOFEN 10 MG TAB PO PRN (09:15)
[2022-09-21] MEDS: predniSONE 5 MG TAB PO SCH (09:16)
[2022-09-21 09:21] LABS: Partial Thromboplastin Ratio 0.7; Partial Thromboplastin Time 20.1 Seconds (21.0-31.0); Prothrombin Time 10.3 Seconds (9.0-12.0)
[2022-09-21 09:33] LABS: BUN Creatinine Ratio 29.1 (10-20); Calcium 10.1 mg/dl (8.5-10.1); Creatinine Clr Calc Pharmacy 54.6 ml/min; Est GFR (African American) 78.2 ml/min; Est GFR (Non-African American) 67.5 ml/min; Potassium 3.9 mmol/L (3.5-5.1)
[2022-09-21] MEDS ORDERED: Heparin IV Adult Wt-Based Standard *NO* Bolus Protocol IV ONE (09:39)
[2022-09-21] MEDS ORDERED: Nursing to Pharmacy Communication SCH (09:45)
--- NOTE | 2022-09-21 09:53 | Consultation ---
Date of Consultation September 21, 2022 Assessment & Plan (1) DVT (deep venous thrombosis): Pt with metastatic breast ca, now with BL DVT and PE. Was on heparin, then changed to eliquis yesterday, which is when she started having some pain in L groin. CT hip demonstrates small hematoma, and AC was d/c. Hgb has been stable, no concern for significant bleeding. Pt discussed with Dr Hinojosa. Recommends pt be restarted on heparin drip and observed for further bleeding. Would reconsider for IVC filter insertion if pt demonstrates significant bleeding. These recommendations were discussed with pt, as well as Dr So. Please call if needed. (2) Pulmonary embolism: see above History of Present Illness Reason for Consultation: DVT/PE, hematoma Attending Physician: Dom So MD History of Present Illness 72 yo f with hx of breast ca with bone mets, anemia, vertebral fx, admitted with acute PE/DVT, seen in consultation today for possible IVC filter insertion d/t L groin hematoma. Pt states no hx of DVT/PE in past. Admits COLLINS, but states not SOB currently while lying in bed. Pt admits fatigue/malaise and pleuritic chest pain. Denies CURRY, fever, recent illness, abd pain, N/V, rest pain, edema, claudication, other complaints. Hgb has been stable, CT hip demonstrates 4cm by4cm L groin hematoma. Venous US demonstrates BL DVT. Chest CTA demonstrates PE. Allergies Allergy/AdvReac Type Severity Reaction Status Date / Time bee venom protein (honey bee) Allergy Unknown edema Verified 09/17/22 15:54 clobetasol Allergy Allergy Verified 09/17/22 15:54 test said was allergic lorazepam AdvReac Unknown syncope Verified 09/17/22 15:54 sulfamethoxazole AdvReac Unknown renal Verified 09/17/22 15:54 [From Bactrim] complications trimethoprim [From Bactrim] AdvReac Unknown renal Verified 09/17/22 15:54 complications Home Medications Medication Instructions Recorded Confirmed Type epinephrine 0.3 mg/0.3 mL 0.3 mg IM UD PRN Allergic Reaction 04/26/22 09/17/22 History injection, auto-injector gabapentin 100 mg capsule 200 mg PO BID 04/26/22 09/17/22 History baclofen 10 mg tablet 10 mg PO BID PRN muscle spasms 06/16/22 09/17/22 History cyanocobalamin (vitamin B-12) 1,000 mcg PO DAILY 06/16/22 09/17/22 History 1,000 mcg tablet (Vitamin B-12) doxycycline hyclate 50 mg capsule 50 mg PO QAM 06/16/22 09/17/22 History acyclovir 400 mg tablet 400 mg PO AMHS 09/17/22 09/17/22 History aspirin 81 mg tablet,delayed 81 mg PO QAM 09/17/22 09/17/22 History release dexamethasone 4 mg tablet 4 mg PO WK 09/17/22 09/17/22 History lenalidomide 25 mg capsule 25 mg PO UD 09/17/22 09/17/22 History (Revlimid) prednisone 5 mg tablet 15 mg PO QAM 09/17/22 09/17/22 History prochlorperazine maleate 10 mg 10 mg PO Q6H PRN Nausea 09/17/22 09/17/22 History tablet tramadol 50 mg tablet 50 mg PO Q8H PRN pain,mild 09/17/22 09/17/22 History apixaban 5 mg tablet (Eliquis) 5 mg PO UD #74 tabs 09/20/22 Rx Patient History Medical History Bone lesion Cancer related pain Counseling regarding advanced directives and goals of care History of breast cancer Hypertension Metastatic breast cancer Multiple lung nodules Palliative care encounter Proteinuria, unspecified Pulmonary embolism Surgical History Hx of cholecystectomy Social History Smoking Status: Never smoker Hx Alcohol Use: No Hx Substance Use: No Preferred Language: Mongolian Communication Ability: Effective Shovel Operator Required: No Beliefs That Will Affect Care: Sabianist Sabianist Beliefs: caodaism Current Living Situation: Family Current Living Situation Comment: lives w/ dtr Feels Safe at Home: Yes Safety Concerns: Feels Safe At This Time Assistive Devices: Bedside Commode, Hospital Bed, Walker and Wheelchair Review of Systems Review of Systems: All systems reviewed & are unremarkable except as noted in HPI & below Physical Exam Constitutional: WD/WN, vitals as above cooperative and comfortable; not in distress ENMT: Ears: + hearing impairment Neck: trachea midline Respiratory: normal respiratory effort; no respiratory distress Auscultation: + diminished lung sounds Cardiovascular: Rate/Rhythm: regular rate and regular rhythm Vessels: femoral pulses present, posterior tibial pulses present and dorsalis pedis pulses present; + abnormal peripheral pulses Extremities: normal capillary refill; no edema Gastrointestinal (Abdomen): Inspection/Auscultation: abdomen normal to inspection and normal bowel sounds Percussion/Palpation: abdomen soft; abdomen nontender Musculoskeletal: no cyanosis or clubbing, extremities motor strength 5/5 Skin: no rashes, warm and dry + ecchymosis (L anterior groin small hematoma noted with mild local ecchymosis) Neurologic: moves all extremities and awake; no focal motor deficits and not confused Psychiatric: A+Ox3, euthymic affect Results & Data ([facility]) Vital Signs (Past 12 Hours) Vital Signs Temp Pulse Pulse Resp BP Pulse Ox O2 Del Method 09/21/22 09:00 Nasal Cannula 09/21/22 07:15 36.5 C 71 17 105/81 91 Room Air 09/21/22 04:00 36.4 C L 67 18 124/81 91 Room Air 09/21/22 00:00 59 L 09/21/22 00:30 36.7 C 60 18 145/83 H 92 Room Air O2 Flow Rate 09/21/22 09:00 2 09/21/22 07:15 09/21/22 04:00 09/21/22 00:00 09/21/22 00:30
[2022-09-21] MEDS: HEPARIN SODIUM/DEXTROSE 25,000 UNITS/500 ML BAG IV SCH (10:17)
[2022-09-21] MEDS: CYANOCOBALAMIN (B-12) 500 MCG TABLET PO SCH (10:21)
[2022-09-21] MEDS: GABAPENTIN 100 MG CAP PO SCH ×2 (10:21→20:07)
[2022-09-21] MEDS: METOPROLOL TARTRATE 25 MG TAB PO SCH ×2 (10:22→20:06)
--- NOTE | 2022-09-21 12:52 | Electrocardiogram Report ---
Test Reason : Blood Pressure : / mmHG Vent. Rate : 076 BPM Atrial Rate : 076 BPM P-R Int : 132 ms QRS Dur : 084 ms QT Int : 338 ms P-R-T Axes : 053 060 071 degrees QTc Int : 380 ms Poor data quality, interpretation may be adversely affected Sinus rhythm with Premature atrial complexes Nonspecific ST abnormality Abnormal ECG When compared with ECG of 19-SEP-2022 09:21, Premature atrial complexes are now Present Confirmed by Tony Ang ([id number]) on 09/21/2022 12:52:20 PM Referred By: REFERRED SELF Confirmed By:Tony Ang
[2022-09-21 17:39] LABS: Partial Thromboplastin Ratio 1.4; Partial Thromboplastin Time 38.1 Seconds (21.0-31.0)
[2022-09-21 20:26] LABS: Hematocrit (blood only) 39.7 % (34.1-44.9); Hemoglobin 13.2 g/dl (12.0-16.0)
[2022-09-22 00:02] LABS: Partial Thromboplastin Ratio 1.9
--- NOTE | 2022-09-22 00:02 | Hospitalist Progress Note ---
Date of Service September 21, 2022 Assessment & Plan (1) Pulmonary embolism: (2) DVT (deep venous thrombosis): (3) Chest pain: (4) History of breast cancer: (5) Bone lesion: Plan 72-year-old with acute shortness of breath; found to have right lung segmental PE. On heparin drip. Intractable pain related to bone cancer. Started on fentanyl patch; patient is opioid kaveh. Pulmonary Embolism: DVT Present on admission with SOB and pleuritic chest pain Chest CTA showed right-sided segmental pulmonary emboli US Venous doppler bilateral LE showed Bilateral lower extremity deep vein thrombosis ECHO showed normal LV wall motion with EF 55-60%. No RV strain noted on echo Current on IV heparin drip Continue monitor for any abnormal bleeding case discussed with Dr. Vaughn on 09/20/22 about coagulant choice Discussed choice of abx btw DOAC and Warfarin in details Pt will prefer to transition to eliquis' I checked the escoto and it will be $47 per month. Pt is ok with that Heparin drip held last night due to left groin hematoma case discussed with pulm dr. Rajan that recommended to resume the heparin drip with no bolus Vascular surgery consulted - Recommended to restart IV heparin drip and observed for further bleeding. Would reconsider for IVC filter insertion if pt demonstrates significant bleeding. Continue monitor Hgb Left groin hematoma/pain CT hip showed hyperdense collection in the anterior left groin site of concern measuring 4.0 x 1.4 cm compatible with hematoma. No drainable fluid collection is seen. Heparin drip was held for more than 6 hours Will resume IV heparin drip Continue monitor closely Paroxysmal Afib telemonitor showed brief episode of afib Spontaneously converted back to NSR ECHO showed normal LV wall motion with EF 55-60%. Coninue Metoprolol 12.5 mg BID Continue monitor History of Breast Cancer: -s/p bilateral mastectomies -Follows with Dr. Vaughn -11/2021 multiple lung nodules found -PET scan 08/05/2022 noted reducible size Intractable pain: Bone metastasis: -Approximately 10 fractured vertebrae found 11/2021 -Follows with Dr. Vaughn -Patient has been ordered a new regimen including Revlimid, Decadron, aspirin, acyclovir, however she has not started this but it is listed on her med rec. -Received IV fentanyl in ED with relief. Patient resistant to morphine, Dilaudid, oxycodone as she states she has felt dizzy before taking these. She was ordered Fentanyl 12.5 mcg, but she had fentanyl 25mcg placed that She was able to tolerate the fentanyl 25mcg Continue Fentanyl Patch while in the hospital and tolerated palliative care on board Pt would like to go to rehab PT/OT eval Goals of Care: -Lengthy conversation held with patient regarding her overall goals of care. She is slated to see Dr. Shelli Cota sometime in September for an initial palliative care encounter. She was tearful throughout our conversation and I did ask her where she is emotionally on her cancer journey. She stated "I have to sometime, but I am not suicidal". "My kids think that I should be done doing jumping jacks at this point, they do not understand". Patient states she has 2 children that do live locally. She did bring up medical marijuana and has said that her multiple friends have told her that she should go through that process but she is not quite sure about it. I did express positive response from numerous patients with bone cancer and that they have different modes of administration (lotion, tincture, etc.). When we discussed CODE STATUS she did hesitate and stated that she was not really ready to make any decisions but does understand that as her disease progresses she is unlikely to have meaningful recovery. Patient receptive to formal palliative medicine consult for continued goals of care and pain management; order placed. For now, patient will be a full code. Disposition: PCP: Dr. Palm Code status: Full code VTE Prophylaxis: on Heparin gtt for now Admission and Anticipated Discharge Date Admission Date: September 17, 2022 Subjective Pt was seen and examined for follow of PE/DVT Lying in bed with no acute distress Pt said that she did not sleep last night She said that her breathing is not better Her heparin drip was held due to left groin pain and hematoma Denies any chest pain, palpitation, dizziness and fever Review of Systems Review of Systems: All systems reviewed & are unremarkable except as noted in Subjective Physical Exam Physical Exam: General- No acute distress Head- atraumatic Eyes- PERRL, EOMI, ENT- oropharynx clear Neck- supple, no JVD Lungs- clear to auscultation Heart- regular rhythm; no murmur Abdomen- normal bowel sounds, soft, nontender Extremities- no calf tenderness, left groin tenderness/small hematoma Neuro- alert, oriented x 3; PERRL, EOMI; no facial palsy; no dysarthria Skin- warm & dry Results & Data Results & Data ([facility]) Vital Signs (Past 12 Hours) Vital Signs Temp Pulse Pulse Resp BP Pulse Ox O2 Del Method 09/21/22 22:53 36.5 C 70 18 111/77 95 Room Air 09/21/22 19:17 36.7 C 64 18 148/85 H 94 Room Air 09/21/22 17:23 80 09/21/22 16:43 36.5 C 72 18 131/80 90 Room Air 09/21/22 12:39 36.8 C 82 17 115/68 93 Nasal Cannula O2 Flow Rate 09/21/22 22:53 09/21/22 19:17 09/21/22 17:23 09/21/22 16:43 09/21/22 12:39 1
[2022-09-22 00:17] LABS: Partial Thromboplastin Time 51.5 Seconds (21.0-31.0)
[2022-09-22 06:25] LABS: Hematocrit (blood only) 36.4 % (34.1-44.9); Hemoglobin 12.2 g/dl (12.0-16.0); Mean Corpuscular Hemoglobin 33.8 pg (25.0-34.0); Mean Corpuscular Hgb Conc 33.5 g/dL (32.0-36.0); Mean Corpuscular Volume 100.8 fL (80.0-100.0); Platelet Count 212 K/uL (130-400); RDW Coefficient of Variation 13.7 % (11.5-14.5); Red Blood Count 3.61 M/uL (3.93-5.22); White Blood Count 10.83 K/ul (4.8-10.8)
[2022-09-22 06:52] LABS: Partial Thromboplastin Ratio 2.2
[2022-09-22 06:53] LABS: Partial Thromboplastin Time 60.9 Seconds (21.0-31.0)
[2022-09-22] MEDS: HEPARIN SODIUM/DEXTROSE 25,000 UNITS/500 ML BAG IV SCH (08:20)
[2022-09-22] MEDS: CHECK fentaNYL PATCH PLACEMENT SCH ×2 (08:24→15:01)
[2022-09-22] MEDS: traMADol HCL 50 MG TABLET PO PRN (08:35)
[2022-09-22] MEDS: CYANOCOBALAMIN (B-12) 500 MCG TABLET PO SCH (09:32)
[2022-09-22] MEDS: predniSONE 5 MG TAB PO SCH (09:32)
[2022-09-22] MEDS: GABAPENTIN 100 MG CAP PO SCH ×2 (09:33→20:24)
[2022-09-22] MEDS: BACLOFEN 10 MG TAB PO PRN (09:33)
[2022-09-22] MEDS: METOPROLOL TARTRATE 25 MG TAB PO SCH ×2 (09:33→20:24)
[2022-09-22] MEDS ORDERED: MAGNESIUM SULFATE / D5W 1 GM/100 ML BAG IV ONE (13:50)
[2022-09-22] MEDS ORDERED: POTASSIUM CHLORIDE CRTAB 20 MEQ TABCR PO STA (13:50)
[2022-09-22] MEDS ORDERED: METOPROLOL TARTRATE 25 MG TAB PO STA (13:55)
[2022-09-22 14:47] LABS: BUN Creatinine Ratio 20.6 (10-20); Calcium 10.2 mg/dl (8.5-10.1); Creatinine Clr Calc Pharmacy 46.1 ml/min; Est GFR (African American) 63.6 ml/min; Est GFR (Non-African American) 54.9 ml/min; Potassium 4.4 mmol/L (3.5-5.1)
--- NOTE | 2022-09-22 15:10 | Electrocardiogram Report ---
Test Reason : Blood Pressure : / mmHG Vent. Rate : 094 BPM Atrial Rate : 094 BPM P-R Int : 134 ms QRS Dur : 078 ms QT Int : 346 ms P-R-T Axes : 060 055 072 degrees QTc Int : 432 ms Sinus rhythm with frequent Consecutive Premature atrial complexes Nonspecific ST and T wave abnormality Abnormal ECG When compared with ECG of 21-SEP-2022 08:27, QT has lengthened Confirmed by Tony Ang ([id number]) on 09/22/2022 3:09:48 PM Referred By: REFERRED SELF Confirmed By:Tony Ang
--- NOTE | 2022-09-22 15:25 | Cardiology Consultation ---
Date of Consultation September 22, 2022 Assessment & Plan (1) Paroxysmal atrial fibrillation: (2) Pulmonary embolism: (3) DVT (deep venous thrombosis): (4) Metastatic breast cancer: Plan I had a long discussion with the patient at bedside regarding the natural history and pathophysiology of atrial fibrillation. She will continue anticoagulation as per internal medicine for treatment of pulmonary embolus. Recommend titration of metoprolol to 25 mg twice daily. Additional 12.5 mg dose of metoprolol ordered to be given now. Repeat basic metabolic panel ordered. Replace electrolytes as indicated. Further treatment options include addition of IV amiodarone if patient experie nces recurrent, symptomatic episodes of rapid atrial fibrillation. All questions answered to patient's satisfaction. Thank you for allow me to participate in the care of your patient. History of Present Illness Reason for Consultation: Atrial fibrillation Requesting Physician: Dr. So Attending Physician: Dom So MD History of Present Illness 72-year-old female presented to [facility] ER 09/17/2022 with pleuritic chest pain. Patient diagnosed with pulmonary embolus. Complex history includes breast cancer with metastatic disease to bone. Brief episode of rapid atrial fibrillation on September 19. Rapid A. fib recurred again this morning lasting approximately 6 minutes with heart rates up to 170 bpm. Patient asymptomatic during the episode. Treated with low-dose beta- anne, metoprolol tartrate 12.5 mg twice daily. She is anticoagulated due to new diagnosis of pulmonary embolus. Currently resting comfortably. Denies palpitations or lightheadedness. Notes constant anterior chest wall pain. Currently followed by palliative care. Echocardiogram demonstrates preserved biventricular systolic function without significant valvular pathology. Notes lifelong history of palpitations however, atrial fibrillation is a recent diagnosis. Allergies Allergy/AdvReac Type Severity Reaction Status Date / Time bee venom protein (honey bee) Allergy Unknown edema Verified 09/17/22 15:54 clobetasol Allergy Allergy Verified 09/17/22 15:54 test said was allergic lorazepam AdvReac Unknown syncope Verified 09/17/22 15:54 sulfamethoxazole AdvReac Unknown renal Verified 09/17/22 15:54 [From Bactrim] complications trimethoprim [From Bactrim] AdvReac Unknown renal Verified 09/17/22 15:54 complications Home Medications Medication Instructions Recorded Confirmed Type epinephrine 0.3 mg/0.3 mL 0.3 mg IM UD PRN Allergic Reaction 04/26/22 09/17/22 History injection, auto-injector gabapentin 100 mg capsule 200 mg PO BID 04/26/22 09/17/22 History baclofen 10 mg tablet 10 mg PO BID PRN muscle spasms 06/16/22 09/17/22 History cyanocobalamin (vitamin B-12) 1,000 mcg PO DAILY 06/16/22 09/17/22 History 1,000 mcg tablet (Vitamin B-12) doxycycline hyclate 50 mg capsule 50 mg PO QAM 06/16/22 09/17/22 History acyclovir 400 mg tablet 400 mg PO AMHS 09/17/22 09/17/22 History aspirin 81 mg tablet,delayed 81 mg PO QAM 09/17/22 09/17/22 History release dexamethasone 4 mg tablet 4 mg PO WK 09/17/22 09/17/22 History lenalidomide 25 mg capsule 25 mg PO UD 09/17/22 09/17/22 History (Revlimid) prednisone 5 mg tablet 15 mg PO QAM 09/17/22 09/17/22 History prochlorperazine maleate 10 mg 10 mg PO Q6H PRN Nausea 09/17/22 09/17/22 History tablet tramadol 50 mg tablet 50 mg PO Q8H PRN pain,mild 09/17/22 09/17/22 History apixaban 5 mg tablet (Eliquis) 5 mg PO UD #74 tabs 09/20/22 Rx Patient History Medical History Bone lesion Cancer related pain Counseling regarding advanced directives and goals of care History of breast cancer Hypertension Metastatic breast cancer Multiple lung nodules Palliative care encounter Proteinuria, unspecified Pulmonary embolism Surgical History Hx of cholecystectomy Social History Smoking Status: Never smoker Hx Alcohol Use: No Hx Substance Use: No Preferred Language: Tajik Communication Ability: Effective Computer Systems Information Director Required: No Beliefs That Will Affect Care: Congregation Congregation Beliefs: scientology Current Living Situation: Family Current Living Situation Comment: lives w/ dtr Feels Safe at Home: Yes Safety Concerns: Feels Safe At This Time Assistive Devices: Bedside Commode, Hospital Bed, Walker and Wheelchair Review of Systems Review of Systems: All systems reviewed & are unremarkable except as noted in Subjective Physical Exam Constitutional: well nourished and + ill appearing; no acute distress Respiratory: + abnormal respiratory effort, no respiratory distress, no labored breathing and no retractions Auscultation: no crackles, no rales and no rhonchi Cardiovascular: Rate/Rhythm: regular rate and regular rhythm Heart Sounds: normal S1 and normal S2 Vessels: radial pulses present; no JVD and no carotid bruit Gastrointestinal (Abdomen): Inspection/Auscultation: abdomen normal to inspection and normal bowel sounds; abdomen not distended Percussion/Palpation: abdomen soft; abdomen nontender, no guarding and abdomen not rigid Neurologic: CN's II-XI intact bilaterally and moves all extremities; no focal motor deficits Psychiatric: A+Ox3, euthymic affect Results & Data ([facility]) Vital Signs (Past 12 Hours) Vital Signs Temp Pulse Pulse Resp BP Pulse Ox O2 Del Method 09/22/22 14:50 36.8 C 82 12 119/74 98 Room Air 09/22/22 12:01 36.6 C 79 18 104/70 92 Room Air 09/22/22 11:13 66 09/22/22 08:00 Room Air 09/22/22 06:43 36.3 C L 60 18 124/82 92 Room Air
--- NOTE | 2022-09-22 17:30 | Hospitalist Progress Note ---
Date of Service September 22, 2022 Assessment & Plan (1) Pulmonary embolism: (2) DVT (deep venous thrombosis): (3) Chest pain: (4) History of breast cancer: (5) Bone lesion: Plan 72-year-old with acute shortness of breath; found to have right lung segmental PE. On heparin drip. Intractable pain related to bone cancer. Started on fentanyl patch; patient is opioid kaveh. Pulmonary Embolism: DVT Present on admission with SOB and pleuritic chest pain Chest CTA showed right-sided segmental pulmonary emboli US Venous doppler bilateral LE showed Bilateral lower extremity deep vein thrombosis ECHO showed normal LV wall motion with EF 55-60%. No RV strain noted on echo Current on IV heparin drip Continue monitor for any abnormal bleeding case discussed with Dr. Vaughn on 09/20/22 about coagulant choice Discussed choice of abx btw DOAC and Warfarin in details Pt will prefer to transition to eliquis' I checked the escoto and it will be $47 per month. Pt is ok with that Heparin drip held last night due to left groin hematoma case discussed with pulm dr. Rajan that recommended to resume the heparin drip with no bolus Vascular surgery consulted - Recommended to restart IV heparin drip and observed for further bleeding. Would reconsider for IVC filter insertion if pt demonstrates significant bleeding. Continue monitor Hgb Left groin hematoma/pain CT hip showed hyperdense collection in the anterior left groin site of concern measuring 4.0 x 1.4 cm compatible with hematoma. No drainable fluid collection is seen. Heparin drip was held for more than 6 hours yesterday Continue IV heparin drip Plan to transition to Eliquis once stable Continue monitor closely Paroxysmal Afib telemonitor showed brief episode of afib Spontaneously converted back to NSR ECHO showed normal LV wall motion with EF 55-60%. Metoprolol increased to 25 mg twice daily Continue monitor History of Breast Cancer: -s/p bilateral mastectomies -Follows with Dr. Vaughn -11/2021 multiple lung nodules found -PET scan 08/05/2022 noted reducible size Intractable pain: Bone metastasis: -Approximately 10 fractured vertebrae found 11/2021 -Follows with Dr. Vaughn -Patient has been ordered a new regimen including Revlimid, Decadron, aspirin, acyclovir, however she has not started this but it is listed on her med rec. -Received IV fentanyl in ED with relief. Patient resistant to morphine, Dilaudid, oxycodone as she states she has felt dizzy before taking these. She was ordered Fentanyl 12.5 mcg, but she had fentanyl 25mcg placed that She was able to tolerate the fentanyl 25mcg Continue Fentanyl Patch while in the hospital and tolerated palliative care on board Pt would like to go to rehab PT/OT eval Goals of Care: -Lengthy conversation held with patient regarding her overall goals of care. She is slated to see Dr. Shelli Cota sometime in September for an initial palliative care encounter. She was tearful throughout our conversation and I did ask her where she is emotionally on her cancer journey. She stated "I have to sometime, but I am not suicidal". "My kids think that I should be done doing jumping jacks at this point, they do not understand". Patient states she has 2 children that do live locally. She did bring up medical marijuana and has said that her multiple friends have told her that she should go through that process but she is not quite sure about it. I did express positive response from numerous patients with bone cancer and that they have different modes of administration (lotion, tincture, etc.). When we discussed CODE STATUS she did hesitate and stated that she was not really ready to make any decisions but does understand that as her disease progresses she is unlikely to have meaningful recovery. Patient receptive to formal palliative medicine consult for continued goals of care and pain management; order placed. For now, patient will be a full code. Disposition: PCP: Dr. Palm Code status: Full code VTE Prophylaxis: on Heparin gtt for now Admission and Anticipated Discharge Date Admission Date: September 17, 2022 Subjective Pt was seen and examined for follow of PE/DVT Lying in bed with no acute distress She said that she continues to have mild pleuritic chest pain left groin pain pain/hematoma improved Denies any chest pain, palpitation, dizziness and fever Review of Systems Review of Systems: All systems reviewed & are unremarkable except as noted in Subjective Physical Exam Physical Exam: General- No acute distress Head- atraumatic Eyes- PERRL, EOMI, ENT- oropharynx clear Neck- supple, no JVD Lungs- clear to auscultation Heart- regular rhythm; no murmur Abdomen- normal bowel sounds, soft, nontender Extremities- no calf tenderness, left groin tenderness/small hematoma Neuro- alert, oriented x 3; PERRL, EOMI; no facial palsy; no dysarthria Skin- warm & dry Results & Data Results & Data ([facility]) Vital Signs (Past 12 Hours) Vital Signs Temp Pulse Pulse Resp BP Pulse Ox O2 Del Method 09/22/22 15:54 86 09/22/22 14:50 36.8 C 82 12 119/74 98 Room Air 09/22/22 12:01 36.6 C 79 18 104/70 92 Room Air 09/22/22 11:13 66 09/22/22 08:00 Room Air 09/22/22 06:43 36.3 C L 60 18 124/82 92 Room Air
[2022-09-23] MEDS: CHECK fentaNYL PATCH PLACEMENT SCH ×4 (00:06→23:12)
[2022-09-23] MEDS: HEPARIN SODIUM/DEXTROSE 25,000 UNITS/500 ML BAG IV SCH (06:03)
[2022-09-23 09:18] LABS: Hematocrit (blood only) 37.5 % (34.1-44.9); Hemoglobin 12.5 g/dl (12.0-16.0); Mean Corpuscular Hemoglobin 33.6 pg (25.0-34.0); Mean Corpuscular Hgb Conc 33.3 g/dL (32.0-36.0); Mean Corpuscular Volume 100.8 fL (80.0-100.0); Platelet Count 235 K/uL (130-400); RDW Coefficient of Variation 13.7 % (11.5-14.5); RDW Standard Deviation 51.3 fL (36.4-46.3); Red Blood Count 3.72 M/uL (3.93-5.22); White Blood Count 11.81 K/ul (4.8-10.8)
[2022-09-23 09:38] LABS: Partial Thromboplastin Ratio 2.2
[2022-09-23] MEDS: CYANOCOBALAMIN (B-12) 500 MCG TABLET PO SCH (09:40)
[2022-09-23] MEDS: GABAPENTIN 100 MG CAP PO SCH ×2 (09:40→21:48)
[2022-09-23] MEDS: predniSONE 5 MG TAB PO SCH (09:40)
[2022-09-23] MEDS: METOPROLOL TARTRATE 25 MG TAB PO SCH ×2 (09:40→21:47)
[2022-09-23] MEDS: traMADol HCL 50 MG TABLET PO PRN (09:44)
[2022-09-23 10:05] LABS: Partial Thromboplastin Time 61.7 Seconds (21.0-31.0)
--- NOTE | 2022-09-23 11:13 | Cardiology Progress Note ---
Date of Service September 23, 2022 Assessment & Plan (1) Paroxysmal atrial fibrillation: (2) Pulmonary embolism: (3) DVT (deep venous thrombosis): (4) Metastatic breast cancer: Plan Natural history and pathophysiology of atrial fibrillation discussed. Continue anticoagulation as per internal medicine for treatment of pulmonary embolus. Metoprolol titrated to 25 mg twice daily yesterday. No recurrent A. fib overnight. Continue current dose. Consider addition of IV amiodarone if patient experiences recurrent, symptomatic episodes of rapid atrial fibrillation. Admission and Anticipated Discharge Date Admission Date: September 17, 2022 Subjective Patient seen examined the bedside. No recurrent atrial fibrillation overnight. Activity limited by chronic pain. Appears somewhat uncomfortable today. Denies chest pain or palpitations. Review of Systems Review of Systems: All systems reviewed & are unremarkable except as noted in Subjective Physical Exam Constitutional: well nourished and + ill appearing; no acute distress Respiratory: + abnormal respiratory effort, no respiratory distress, no labored breathing and no retractions Auscultation: no crackles, no rales and no rhonchi Cardiovascular: Rate/Rhythm: regular rate and regular rhythm Heart Sounds: normal S1 and normal S2 Vessels: radial pulses present; no JVD and no carotid bruit Gastrointestinal (Abdomen): Inspection/Auscultation: abdomen normal to inspection and normal bowel sounds; abdomen not distended Percussion/Palpation: abdomen soft; abdomen nontender, no guarding and abdomen not rigid Neurologic: CN's II-XI intact bilaterally and moves all extremities; no focal motor deficits Psychiatric: A+Ox3, euthymic affect Results & Data ([facility]) Vital Signs (Past 12 Hours) Vital Signs Temp Pulse Pulse Resp BP Pulse Ox O2 Del Method 09/23/22 07:00 74 09/23/22 08:00 Room Air 09/23/22 07:03 36.4 C L 61 18 123/76 94 Room Air 09/23/22 03:13 36.4 C L 54 L 18 128/83 94 Room Air
[2022-09-23] MEDS: fentaNYL 25 MCG/HR TDSY TD SCH (16:41)
[2022-09-23] MEDS: HEPARIN ~ STOP ORDER SCH ×5 (19:52→23:03)
[2022-09-23] MEDS: APIXABAN 5 MG TABLET PO SCH (21:47)
--- NOTE | 2022-09-23 23:45 | Hospitalist Progress Note ---
Date of Service September 23, 2022 Assessment & Plan (1) Pulmonary embolism: (2) DVT (deep venous thrombosis): (3) Chest pain: (4) History of breast cancer: (5) Bone lesion: Plan 72-year-old with acute shortness of breath; found to have right lung segmental PE. On heparin drip. Intractable pain related to bone cancer. Started on fentanyl patch; patient is opioid kaveh. Pulmonary Embolism: DVT Present on admission with SOB and pleuritic chest pain Chest CTA showed right-sided segmental pulmonary emboli US Venous doppler bilateral LE showed Bilateral lower extremity deep vein thrombosis ECHO showed normal LV wall motion with EF 55-60%. No RV strain noted on echo Current on IV heparin drip Continue monitor for any abnormal bleeding case discussed with Dr. Vaughn on 09/20/22 about coagulant choice Discussed choice of abx btw DOAC and Warfarin in details Pt will prefer to eliquis' I checked the escoto and it will be $47 per month. Pt is ok with that case discussed with pulm dr. Rajan that recommended to resume the heparin drip with no bolus Vascular surgery consulted - Recommended to restart IV heparin drip and observed for further bleeding. Would reconsider for IVC filter insertion if pt demonstrates significant bleeding. Continue IV heparin drip since hemoglobin has been stable and left groin hematoma improved We will transition to Eliquis tonight Continue monitor H&H Left groin hematoma/pain CT hip showed hyperdense collection in the anterior left groin site of concern measuring 4.0 x 1.4 cm compatible with hematoma. No drainable fluid collection is seen. Heparin drip was held for more than 6 hours yesterday IV heparin drip will transition to Eliquis Continue monitor closely Paroxysmal Afib telemonitor showed brief episode of afib Spontaneously converted back to NSR ECHO showed normal LV wall motion with EF 55-60%. Cardiology on board Continue metoprolol 25 mg twice daily Continue monitor History of Breast Cancer: -s/p bilateral mastectomies -Follows with Dr. Vaughn -11/2021 multiple lung nodules found -PET scan 08/05/2022 noted reducible size Intractable pain: Bone metastasis: -Approximately 10 fractured vertebrae found 11/2021 -Follows with Dr. Vaughn -Patient has been ordered a new regimen including Revlimid, Decadron, aspirin, acyclovir, however she has not started this but it is listed on her med rec. -Received IV fentanyl in ED with relief. Patient resistant to morphine, Dilaud id, oxycodone as she states she has felt dizzy before taking these. She was ordered Fentanyl 12.5 mcg, but she had fentanyl 25mcg placed that She was able to tolerate the fentanyl 25mcg Continue Fentanyl Patch while in the hospital and tolerated palliative care on board Pt would like to go to rehab PT/OT eval Goals of Care: -Lengthy conversation held with patient regarding her overall goals of care. She is slated to see Dr. Shelli Cota sometime in September for an initial palliative care encounter. She was tearful throughout our conversation and I did ask her where she is emotionally on her cancer journey. She stated "I have to sometime, but I am not suicidal". "My kids think that I should be done doing jumping jacks at this point, they do not understand". Patient states she has 2 children that do live locally. She did bring up medical marijuana and has said that her multiple friends have told her that she should go through that process but she is not quite sure about it. I did express positive response from numerous patients with bone cancer and that they have different modes of administration (lotion, tincture, etc.). When we discussed CODE STATUS she did hesitate and stated that she was not really ready to make any decisions but does understand that as her disease progresses she is unlikely to have meaningful recovery. Patient receptive to formal palliative medicine consult for continued goals of care and pain management; order placed. For now, patient will be a full code. Disposition: PCP: Dr. Palm Code status: Full code VTE Prophylaxis: on Heparin gtt for now Admission and Anticipated Discharge Date Admission Date: September 17, 2022 Subjective Pt was seen and examined for follow of PE/DVT Lying in bed with no acute distress She says she was sitting on the chair earlier today left groin pain pain/hematoma improved Denies any chest pain, palpitation, dizziness and fever Review of Systems Review of Systems: All systems reviewed & are unremarkable except as noted in Subjective Physical Exam Physical Exam: General- No acute distress Head- atraumatic Eyes- PERRL, EOMI, ENT- oropharynx clear Neck- supple, no JVD Lungs- clear to auscultation Heart- regular rhythm; no murmur Abdomen- normal bowel sounds, soft, nontender Extremities- no calf tenderness, left groin tenderness/small hematoma improved Neuro- alert, oriented x 3; PERRL, EOMI; no facial palsy; no dysarthria Skin- warm & dry Results & Data Results & Data ([facility]) Vital Signs (Past 12 Hours) Vital Signs Temp Pulse Pulse Resp BP Pulse Ox O2 Del Method 09/23/22 23:04 36.7 C 57 L 18 133/85 94 Room Air 09/23/22 19:35 36.6 C 65 18 119/81 93 Room Air 09/23/22 16:24 71 09/23/22 15:56 36.7 C 63 16 118/77 92 Room Air 09/23/22 11:56 36.6 C 58 L 17 107/70 92 Room Air
[2022-09-24] MEDS: traMADol HCL 50 MG TABLET PO PRN ×2 (01:35→08:51)
[2022-09-24] MEDS: HEPARIN ~ STOP ORDER SCH ×3 (04:33→07:13)
[2022-09-24 05:47] LABS: Partial Thromboplastin Ratio 0.9
[2022-09-24] MEDS: predniSONE 5 MG TAB PO SCH (08:52)
[2022-09-24] MEDS: CYANOCOBALAMIN (B-12) 500 MCG TABLET PO SCH (08:53)
[2022-09-24] MEDS: APIXABAN 5 MG TABLET PO SCH (08:53)
[2022-09-24] MEDS: GABAPENTIN 100 MG CAP PO SCH (08:54)
[2022-09-24] MEDS: CHECK fentaNYL PATCH PLACEMENT SCH ×2 (08:54→18:26)
[2022-09-24] MEDS: METOPROLOL TARTRATE 25 MG TAB PO SCH (08:54)
[2022-09-24 10:00] LABS: Hemoglobin 12.6 g/dl (12.0-16.0); Mean Corpuscular Hemoglobin 34.1 pg (25.0-34.0); Mean Corpuscular Hgb Conc 34.1 g/dL (32.0-36.0); Mean Corpuscular Volume 100.3 fL (80.0-100.0); Mean Platelet Volume 10.2 fL (9.4-12.3); Platelet Count 248 K/uL (130-400); RDW Coefficient of Variation 14.1 % (11.5-14.5); RDW Standard Deviation 51.9 fL (36.4-46.3); Red Blood Count 3.69 M/uL (3.93-5.22); White Blood Count 10.56 K/ul (4.8-10.8)
[2022-09-24] MEDS: BACLOFEN 10 MG TAB PO PRN (10:16)
--- NOTE | 2022-09-24 14:47 | Discharge Summary ---
Date of Service September 24, 2022 Admission HPI Per Admitting Provider Ms. Siddiqi is a 72-year-old female that presented to the [facility] today with pleuritic chest pain that she describes as sharp and rates it 7 out of 10. She stated that it hurts to take each breath. She stated that this morning she got up to go to the bathroom but had significant pain in the left side of her chest so she laid back down. She reports that she has been mostly bedbound aside from ambulating to the bathroom due to approximately 10 vertebral fractures that were diagnosed 11/2021. Additionally in November she was noted to have multiple lung nodules that have since decreased in size on her most recent PET scan August 05, 2022. . Patient follows with Dr. Rios from a heme-onc perspectiv she was to start a new regimen as indicated on her EMR however she has not begun this treatment plan as of today . The treatment plan includes Darzalex, Faspro, Revlimid and Decadron & Xgeva. Due to her multiple vertebral fractures she was taken for chest CTA to limit diagnostic testing due to pain and results indicated subsegmental right-sided pulmonary emboli. She was started on a heparin infusion without bolus. Bilateral lower extremity ultrasound pending. Troponin was negative. Echo pending. Patient has a PMH that includes: breast cancer s/p bilateral mastectomies, bone marrow cancer (under current treatment), HTN, and GERD. Patient currently denies headache, dizziness, chest pain, palpitations, nausea, vomiting, diarrhea, constipation, visual changes, recent falls or trauma. Patient is lying relatively flat 30 degree angle in her hospital bed in no apparent distress. She is AAO x4 and is able to hold a full meaningful conversation with me at bedside. Patient does not appear dyspneic with conversation however is quite tender in her pleuritic area just to touch. The patient is routinely hesitant to take pain medications which we had a lengthy conversation about regarding her disease progression. See below under assessment and plan for further details. Patient will be admitted for further evaluation and management. Please see A/P for further details. Admission Exam Per Admitting Provider Neuro: AAOx4, PERRLA, no aphagia, memory changes, CNII-XII grossly intact HEENT: head normocephalic, moist mucus membranes CV: S1/S2, (-) M/G/R, (-) edema, cap refill < 3 seconds (-) JVD Resp: Lungs CTA in all rico. On 2LNC. tender chest wall to touch GI: Abdomen S/NT/ND, Ax4 bowel sounds, (-) CVA tenderness Musculoskeletal: 5/5 B/L UE strength, 5/5 B/L LE strength. No gait disturbance Skin: (-) rashes , (-) erythema. Psych: euthymic mood Principal Diagnosis Pulmonary Embolism: Deep Vein Thrombosis Left groin hematoma/pain Paroxysmal Afib History of Breast Cancer: Intractable pain: Discharge Exam General- No acute distress Head- atraumatic Eyes- PERRL, EOMI, ENT- oropharynx clear Neck- supple, no JVD Lungs- clear to auscultation Heart- regular rhythm; no murmur Abdomen- normal bowel sounds, soft, nontender Extremities- no calf tenderness, left groin tenderness/small hematoma improved Neuro- alert, oriented x 3; PERRL, EOMI; no facial palsy; no dysarthria Skin- warm & dry Discharge Data Allergies Allergy/AdvReac Type Severity Reaction Status Date / Time bee venom protein (honey bee) Allergy Unknown edema Verified 09/17/22 15:54 clobetasol Allergy Allergy Verified 09/17/22 15:54 test said was allergic lorazepam AdvReac Unknown syncope Verified 09/17/22 15:54 sulfamethoxazole AdvReac Unknown renal Verified 09/17/22 15:54 [From Bactrim] complications trimethoprim [From Bactrim] AdvReac Unknown renal Verified 09/17/22 15:54 complications Consultations 09/17/22 15:46 ED Decision to Admit Stat 09/17/22 17:31 Consult Palliative Care Routine 09/21/22 08:42 Consult Vascular Surgery Routine 09/22/22 12:02 Consult Cardiology Routine Ordered Studies 09/17/22 12:41 CT angio chest PE protocol Stat 09/17/22 16:04 US venous doppler LE BI Routine 09/20/22 22:59 CT hip LT wo con Stat Laboratory Results WBC 10.56 K/ul (4.8-10.8) 09/24/22 05:15 RBC 3.69 M/uL (3.93-5.22) L 09/24/22 05:15 Hgb 12.6 g/dl (12.0-16.0) 09/24/22 05:15 Hct 37.0 % (34.1-44.9) 09/24/22 05:15 MCV 100.3 fL (80.0-100.0) H 09/24/22 05:15 MCH 34.1 pg (25.0-34.0) H 09/24/22 05:15 MCHC 34.1 g/dL (32.0-36.0) 09/24/22 05:15 RDW Std Deviation 51.9 fL (36.4-46.3) H 09/24/22 05:15 RDW Coeff of Sophia 14.1 % (11.5-14.5) 09/24/22 05:15 Plt Count 248 K/uL (130-400) 09/24/22 05:15 MPV 10.2 fL (9.4-12.3) 09/24/22 05:15 Immature Gran % (Auto) 0.9 % 09/17/22 12:00 Neut % (Auto) 71.8 % 09/17/22 12:00 Lymph % (Auto) 22.7 % 09/17/22 12:00 [place] % (Auto) 4.2 % 09/17/22 12:00 Eos % (Auto) 0.1 % 09/17/22 12:00 Baso % (Auto) 0.3 % 09/17/22 12:00 Neut # (Auto) 7.28 K/uL (1.4-6.5) H 09/17/22 12:00 Lymph # (Auto) 2.30 K/uL (1.2-3.4) 09/17/22 12:00 [place] # (Auto) 0.43 K/uL (0.24-0.82) 09/17/22 12:00 Eos # (Auto) 0.01 K/uL (0-0.50) 09/17/22 12:00 Baso # (Auto) 0.03 K/uL (0-0.2) 09/17/22 12:00 Immature Gran # (Auto) 0.09 K/uL (0.00-0.02) H 09/17/22 12:00 PT 10.3 Seconds (9.0-12.0) 09/21/22 09:00 INR 1.0 (0.9-1.1) 09/21/22 09:00 APTT 24.0 Seconds (21.0-31.0) 09/24/22 05:15 PTT Ratio 0.9 09/24/22 05:15 Sodium 138 mmol/L (136-145) 09/22/22 14:10 Potassium 4.4 mmol/L (3.5-5.1) 09/22/22 14:10 Chloride 99 mmol/L (98-107) 09/22/22 14:10 Carbon Dioxide 31 mmol/L (21-32) 09/22/22 14:10 Anion Gap 8 (3-11) 09/22/22 14:10 BUN 21 mg/dl (6-23) 09/22/22 14:10 Creatinine 1.02 mg/dl (0.6-1.2) 09/22/22 14:10 Est Cr Clr Drug Dosing 46.1 ml/min 09/22/22 14:10 Est GFR ( Amer) 63.6 ml/min 09/22/22 14:10 Est GFR (Non-Af Amer) 54.9 ml/min 09/22/22 14:10 BUN/Creatinine Ratio 20.6 (10-20) H 09/22/22 14:10 Glucose 168 mg/dl (70-99(Fasting)) H 09/22/22 14:10 Calcium 10.2 mg/dl (8.5-10.1) H 09/22/22 14:10 Magnesium 2.0 mg/dl (1.7-2.4) 09/22/22 14:10 Total Bilirubin 0.7 mg/dl (0.2-1.0) 09/17/22 12:00 AST 14 U/L (13-39) 09/17/22 13:14 ALT 18 U/L (7-52) 09/17/22 12:00 Alkaline Phosphatase 120 U/L (34-104) H 09/17/22 12:00 Troponin I High Sens 9.9 pg/ml (0-14) 09/22/22 10:33 Total Protein 6.2 gm/dl (6.0-8.3) 09/17/22 12:00 Albumin 3.9 gm/dl (3.4-5.0) 09/17/22 12:00 Globulin 2.3 gm/dl (2.5-4.0) L 09/17/22 12:00 Albumin/Globulin Ratio 1.7 (0.9-2) 09/17/22 12:00 SARS-CoV-2, RNA, NAAT NEGATIVE (NEGATIVE) 09/17/22 17:04 Impressions Chest CTA 09/17/22 12:41 CT angio chest PE protocol CLINICAL HISTORY: Chest pain ,hx of CA and vert comp fx TECHNIQUE: Multidetector row helical CT of the chest was performed with angiographic protocol. Coronal and sagittal reformations were obtained. Coronal and sagittal MIPS were obtained from the axial data set and were submitted for review. Automated dose lowering techniques and/or adjustment according to patient size were utilized for this exam. CT DOSE: 479.20 mGy.cm Comparison: Comparison is made to CT chest 06/16/2022 FINDINGS: Lungs and pleura: Atelectasis versus scarring is seen in the dependent portions of the lungs. Heart and pericardium: There is cardiomegaly without evidence of pericardial effusion. Vessels: There are pulmonary emboli in the segmental level of the right upper and lower lobes. Mediastinum and davy: Numerous mediastinal lymph nodes measure up to 11 mm in diameter. Chest wall and lower neck: Bilateral breast implants are seen. Abdomen: Unremarkable. Bones: Multilevel compression deformities are seen. No evidence of acute fracture. IMPRESSION: 1. Right-sided segmental pulmonary emboli without evidence of right heart strain. 2. Mediastinal lymphadenopathy is similar in extent to prior exam, likely reactive. 3. Bilateral airspace opacities likely representing atelectasis, superimposed pneumonia cannot be entirely excluded. Follow-up to resolution is recommended. ACT 112: Negative or not required by law. Electronically signed by: Taye Miller M.D. 09/17/2022 2:16 PM Venous Doppler Study 09/17/22 16:04 BILATERAL LOWER EXTREMITY VENOUS DOPPLER HISTORY: Bilateral pulmonary emboli. Suspected DVT. COMPARISON STUDY: None. FINDINGS: Nonocclusive deep vein thrombosis seen within the left superficial femoral and popliteal veins. There is also thrombus seen within the left posterior tibial vein. There is thrombus seen within the mid right peroneal vein. No right lower extremity DVT seen above the knee. IMPRESSION: Bilateral lower extremity deep vein thrombosis as described above. ACT 112: Negative or not required by law. Electronically signed by: James Gilman M.D. 09/18/2022 7:40 AM Chest X-Ray 09/18/22 08:00 XR chest 1V portable CLINICAL HISTORY: Acute pulmonary emboli. COMPARISON STUDY: Chest CT September 17, 2022. FINDINGS: Lung volumes are noted. Mild bibasilar opacities are present. Cardiomediastinal silhouette is stable. There is no evidence for pulmonary edema. There is no pneumothorax or pleural effusion. IMPRESSION: 1. No change in low lung volumes with bibasilar opacities. 2. No evidence for pulmonary edema. ACT 112: Negative or not required by law. Electronically signed by: Naveen Freedman M.D. 09/18/2022 7:[address] 09/20/22 22:59 CT hip LT wo con CLINICAL HISTORY: r/o hematoma, Lt groin bruise ? Collection TECHNIQUE: Multidetector row helical CT of the left hip was performed without intravenous contrast. Coronal and sagittal reformations were obtained. Automated dose lowering techniques and/or adjustment according to patient size were utilized for this examination. CT DOSE: 534.96 mGy.cm Comparison: Comparison is made to CT abdomen pelvis 06/16/2022 FINDINGS: The osseous structures are without fracture or dislocation. The joint spaces are maintained. No joint effusion is seen. Hyperdense collection in the anterior left groin site of concern measuring 4.0 x 1.4 cm compatible with hematoma. No drainable fluid collection is seen. IMPRESSION: Soft tissue hematoma in the groin at the site of interest without underlying bony abnormality. ACT 112: Negative or not required by law. Electronically signed by: Taye Miller M.D. 09/21/2022 8:28 AM Hospital Course (1) Pulmonary embolism: (2) DVT (deep venous thrombosis): (3) Chest pain: (4) History of breast cancer: (5) Bone lesion: Plan 72-year-old with acute shortness of breath; found to have right lung segmental PE. On heparin drip. Intractable pain related to bone cancer. Started on fentanyl patch; patient is opioid kaveh. Pulmonary Embolism: DVT Present on admission with SOB and pleuritic chest pain Chest CTA showed right-sided segmental pulmonary emboli US Venous doppler bilateral LE showed Bilateral lower extremity deep vein thrombosis ECHO showed normal LV wall motion with EF 55-60%. No RV strain noted on echo Current on IV heparin drip Continue monitor for any abnormal bleeding case discussed with Dr. Vaughn on 09/20/22 about coagulant choice Discussed choice of abx btw DOAC and Warfarin in details Pt will prefer to eliquis' I checked the escoto and it will be $47 per month. Pt is ok with that case discussed with pulm dr. Rajan that recommended to resume the heparin drip with no bolus Vascular surgery consulted - Recommended to restart IV heparin drip and observed for further bleeding. Would reconsider for IVC filter insertion if pt demonstrates significant bleeding. Continue IV heparin drip since hemoglobin has been stable and left groin hematoma improved We will transition to Eliquis tonight Continue monitor H&H Left groin hematoma/pain CT hip showed hyperdense collection in the anterior left groin site of concern measuring 4.0 x 1.4 cm compatible with hematoma. No drainable fluid collection is seen. Heparin drip was held for more than 6 hours yesterday IV heparin drip will transition to Eliquis Continue monitor closely Paroxysmal Afib telemonitor showed brief episode of afib Spontaneously converted back to NSR ECHO showed normal LV wall motion with EF 55-60%. Cardiology on board Continue metoprolol 25 mg twice daily Continue monitor History of Breast Cancer: -s/p bilateral mastectomies -Follows with Dr. Vaughn -11/2021 multiple lung nodules found -PET scan 08/05/2022 noted reducible size Intractable pain: Bone metastasis: -Approximately 10 fractured vertebrae found 11/2021 -Follows with Dr. Vaughn -Patient has been ordered a new regimen including Revlimid, Decadron, aspirin, acyclovir, however she has not started this but it is listed on her med rec. -Received IV fentanyl in ED with relief. Patient resistant to morphine, Dilaudid, oxycodone as she states she has felt dizzy before taking these. She was ordered Fentanyl 12.5 mcg, but she had fentanyl 25mcg placed that She was able to tolerate the fentanyl 25mcg Continue Fentanyl Patch while in the hospital and tolerated palliative care on board Pt would like to go to rehab PT/OT eval Goals of Care: -Lengthy conversation held with patient regarding her overall goals of care. She is slated to see Dr. Shelli Cota sometime in September for an initial palliative care encounter. She was tearful throughout our conversation and I did ask her where she is emotionally on her cancer journey. She stated "I have to sometime, but I am not suicidal". "My kids think that I should be done doing jumping jacks at this point, they do not understand". Patient states she has 2 children that do live locally. She did bring up medical marijuana and has said that her multiple friends have told her that she should go through that process but she is not quite sure about it. I did express positive response from numerous patients with bone cancer and that they have different modes of administration (lotion, tincture, etc.). When we discussed CODE STATUS she did hesitate and stated that she was not really ready to make any decisions but does understand that as her disease progresses she is unlikely to have meaningful recovery. Patient receptive to formal palliative medicine consult for continued goals of care and pain management; order placed. For now, patient will be a full code. Disposition: PCP: Dr. Palm Code status: Full code VTE Prophylaxis: on Heparin gtt for now Total Time Total Time Spent Total Time Spent (In Minutes): 35 minutes Discharge Plan Discharge Items Patient Disposition: Home - Self-Care Reason For Visit: PE Discharge Diagnosis: Pulmonary Embolism: Deep Vein Thrombosis Left groin hematoma/pain Paroxysmal Afib History of Breast Cancer: Intractable pain: Activity: Resume your previous activity Non-emergency contact: Primary Care Provider, [employer] and Oncologist Call non-emergency contact if: you have any medication questions and your symptoms worsen Follow-up/Referrals: Sherwin Obrien MD [Primary Care Provider] - 10/01/22 10:40 am (Date & Time 10/01/2022 10:40 AM Provider Sherwin Obrien MD Department [facility] ) Diet: Heart Healthy Addtl Attending Provider Instructions: Follow up with your primary care provider 10/01/2022 @ 10:40 AM Sherwin Obrien MD Department [facility] Follow up with palliative medicine Dr. Ana Zhang on October 04 Follow up with cardiology outpatient (Office will call you for the appointment) Follow up with your Oncology Continue monitor for abnormal bleeding while on Eliquis Fall precaution Do not drive or operate any machine while on narcotic Please hold next dose of narcotic if you become drowsy and lethargy Seek medical attention if you become drowsy and lethargy Continue stool softener while on narcotic due to constipation Continue Eliquis 10mg twice a day for 6 days then after day #6, Continue Eliquis 5mg twice a day Medication Instructions: Eliquis Your condition is typically treated with an anticoagulant. Anticoagulants will thin your blood to help prevent new clots. You should take her medication exactly as directed. Never skip a dose. Never take a double dose. If you miss a dose, take it as soon as you remember. Avoid NSAIDs (Motrin, Aleve, Naproxen, Ibuprofen, Advil, Meloxicam,..) due to risks of bleeding Call your Primary Care doctor if you experience any of the following: Swelling or Pain in your leg Sudden, continuous pain deep in a muscle Pain that worsens when you are active or when you stand still for a long time Chest Pain Sudden Shortness of Breath Rapid or pounding heart beat Fainting Dizziness Cough with blood or bloody sputum Sweating more than normal Bruises Heavy or uncontrolled bleeding Blood in your urine, stool or vomit Black or tarry stools Caring for Your Self at Home: Avoid sitting, standing or lying down for long periods without moving your legs and feet When traveling by car, stop to get out and move around at least once every 3 hours On long airplane, train or bus rides, get up and move around when possible If you can't get up, wiggle your toes and tighten your calves to keep your blood moving Follow Up: It is important for you to keep your follow up appointments with your medical provider. Pending Studies at Discharge: No Stand-Alone Forms: My [facility], Smoking Cessation Medications and DC Order Prescriptions: New Eliquis 5 mg tablet 5 mg PO UD Qty: 74 0RF Rx Instructions: take 10mg BID for 7 days, then 5mg BID metoprolol tartrate 25 mg Tablet 25 mg PO BID Qty: 60 0RF fentanyl 25 mcg/hr Patch 72 Hour 25 mcg transdermal Q3D Qty: 3 0RF Rx Instructions: please hold for lethargy and drowsiness polyethylene glycol 3350 [Miralax] 17 gram Powder In Packet 17 g PO DAILY PRN (Reason: constipation) Qty: 30 0RF Continued gabapentin 100 mg capsule 200 mg PO BID Rx Instructions: take 2 capsules in morning and before bed epinephrine 0.3 mg/0.3 mL auto-injector 0.3 mg IM UD PRN (Reason: Allergic Reaction) Rx Instructions: for a severe reaction: place orange end against outer thigh,press firmly,hold in place for 10 seconds and go to emergency room baclofen 10 mg tablet 10 mg PO BID PRN (Reason: muscle spasms) cyanocobalamin (vitamin B-12) [Vitamin B-12] 1,000 mcg Tablet 1,000 mcg PO DAILY tramadol 50 mg tablet 50 mg PO Q8H PRN (Reason: pain,mild) lenalidomide [Revlimid] 25 mg capsule 25 mg PO UD Rx Instructions: take 25mg by mouth in the morning for 21 days on,7 days off of a 28 day cycle. take at same time every day and consistently with or without food prednisone 5 mg tablet 15 mg PO QAM prochlorperazine maleate 10 mg Tablet 10 mg PO Q6H PRN (Reason: Nausea) acyclovir 400 mg Tablet 400 mg PO [facility] dexamethasone 4 mg Tablet 4 mg PO WK Discontinued doxycycline hyclate 50 mg capsule 50 mg PO QAM aspirin [Aspirin Low-Strength] 81 mg Tablet,Delayed Release (Dr/Ec) 81 mg PO QAM Discharge Orders: Discharge Order (Routine); Ordered 09/24/22 Ordered By: Dom Guy/Other Patient Handouts: Preventing Deep Vein Thrombosis, Chronic Pain Therapies Mind Body, DVT Tx, Managing Chronic Pain Admission Data Admit Date/Time: 09/17/22 15:55 Attending Provider: Dom So Admit Provider: Dom So Primary Care Provider: Sherwin Obrien Other Providers: Dom So ; Gin Cristina ; Preston Hinojosa ; Yonatan Lloyd ; Parish Araujo [facility] Other Interventions: Discharge Summary Assessment (RN) Last Done: 09/24/22 16:36
--- NOTE | 2022-09-24 15:41 | Cardiology Progress Note ---
Date of Service September 24, 2022 Assessment & Plan (1) Paroxysmal atrial fibrillation: (2) Pulmonary embolism: (3) DVT (deep venous thrombosis): (4) Metastatic breast cancer: Plan Natural history and pathophysiology of atrial fibrillation discussed. Continue anticoagulation as per internal medicine for treatment of pulmonary embolus. Metoprolol titrated to 25 mg twice daily 09/22/2022. Brief episode of symptomatic atrial fibrillation recorded this morning. Discussed transition to amiodarone versus continued treatment with beta-anne. Patient prefers to continue beta- anne at this time. She will consider transition to amiodarone in the future if her palpitations become more frequent or sustained. She may be discharged in a cardiovascular perspective. Recommend outpatient cardiology follow-up in 2 to 4 weeks. Admission and Anticipated Discharge Date Admission Date: September 17, 2022 Subjective Patient seen examined at bedside. Brief episode of atrial fibrillation with rapid ventricular response this morning. Patient reports mild palpitations. No lightheadedness, dizziness, or chest discomfort. Currently sinus rhythm. She is anxious for discharge. Review of Systems Review of Systems: All systems reviewed & are unremarkable except as noted in Subjective Physical Exam Constitutional: well nourished and + ill appearing; no acute distress Respiratory: + abnormal respiratory effort, no respiratory distress, no labored breathing and no retractions Auscultation: no crackles, no rales and no rhonchi Cardiovascular: Rate/Rhythm: regular rate and regular rhythm Heart Sounds: normal S1 and normal S2 Vessels: radial pulses present; no JVD and no carotid bruit Gastrointestinal (Abdomen): Inspection/Auscultation: abdomen normal to inspection and normal bowel sounds; abdomen not distended Percussion/Palpation: abdomen soft; abdomen nontender, no guarding and abdomen not rigid Neurologic: CN's II-XI intact bilaterally and moves all extremities; no focal motor deficits Psychiatric: A+Ox3, euthymic affect Results & Data ([facility]) Vital Signs (Past 12 Hours) Vital Signs Temp Pulse Pulse Resp BP Pulse Ox O2 Del Method 09/24/22 12:21 36.4 C L 68 18 118/79 91 Room Air 09/24/22 08:57 183 H 09/24/22 07:30 66 09/24/22 09:08 90 22 135/78 93 Room Air 09/24/22 09:08 167 H 22 123/95 94 Room Air 09/24/22 07:03 36.3 C L 71 18 118/82 93 Room Air
== END 2022-09-24 19:58 | disposition home health service (06) | DRG 299 ==
LOC: ED 11:49 → 4W 15:55